=== PATIENT | female | born 1945 | race Caucasian/White ===

== ENCOUNTER 2017-02-15 12:51 | Inpatient (IN) | payer OTHER ==
[2017-02-15 14:07] LABS: Hematocrit 34 % (35-47); Hemoglobin 10.9 g/dl (12.0-16.0); Mean Corpuscular HGB Conc 32 g/dl (31-36); Mean Corpuscular Hemoglobin 29 pg (27-31); Mean Corpuscular Volume 91 fL (80-97); Mean Platelet Volume 7 um3 (7.4-10.4); Red Blood Count 3.74 10^6/ul (4.0-5.4); Red Cell Distribution Width 15 % (10.5-15); White Blood Count 8.1 10^3/ul (3.5-10.8)
[2017-02-15 14:22] LABS: Troponin I 0.01 ng/mL (<0.04)
[2017-02-15 14:26] LABS: Albumin 3.2 g/dL (3.2-5.2); BUN/Creatinine Ratio 20.4 (8-20); Calcium 9.3 mg/dL (8.6-10.3); EGFR African American 23.2 (>60); Globulin 3.4 g/dL (2-4); Magnesium 1.9 mg/dL (1.9-2.7); Potassium 5.5 mmol/L (3.5-5.0); Total Bilirubin 0.4 mg/dL (0.2-1.0); Total Protein 6.6 g/dL (6.4-8.9)
[2017-02-15 15:31] LABS: TSH (Thyroid Stimulating Horm) 2.39 mcIU/mL (0.34-5.60)
[2017-02-15] MEDS ORDERED: Ibuprofen TAB* 200 MG PO PRN (16:10)
[2017-02-15] MEDS ORDERED: Dextrose 50% Syringe 50 ML* 25 GM/50 ML SYRINGE IV PUSH PRN (16:13)
[2017-02-15] MEDS ORDERED: Enoxaparin(*) 150 MG/ML 1 ML SYRINGE SUBCUT SCH (17:00)
[2017-02-15] MEDS ORDERED: NS 0.9% 1000 ML* 1,000 ML IV SCH (17:15)
[2017-02-15] MEDS: Sucralfate TAB* 1 GM PO SCH ×2 (18:36→22:11)
[2017-02-15] MEDS: Atorvastatin* 10 MG TAB PO SCH (18:36)
[2017-02-15] MEDS: Insulin LISPRO* 1 UNITS UNIT SUBCUT SCH (19:23)
[2017-02-15] MEDS: Ferrous Sulfate TAB* 325 MG PO SCH (22:11)
[2017-02-15] MEDS: Lactobacillus Acidophilu (GG)* 1 CAP CAP PO SCH (22:12)
[2017-02-15] MEDS: Gabapentin CAP(*) 100 MG PO SCH (22:13)
[2017-02-15] MEDS: Zinc Oxide 40% (TOPICAL)* TUBE TOPICAL SCH (23:04)
--- NOTE | 2017-02-16 02:30 | HP ---
CC: Dr. Joss Salgado * HISTORY AND PHYSICAL: DATE OF ADMISSION: 02/15/17 AGE: 71. PRIMARY CARE PROVIDER: Dr. Joss Salgado. ATTENDING PHYSICIAN: Dr. Donna Bullock *(dictated by Adela Frazier NP). CHIEF COMPLAINT: Weakness and diarrhea. HISTORY OF PRESENT ILLNESS: Ms. Jean is a 71-year-old female with past medical history significant for atrial flutter, diabetes mellitus, hypertension , and chronic diarrhea who initially had a fall back on February 04 and was hospitalized at [facility] for community-acquired pneumonia and acute on chronic kidney injury in addition to a knee effusion. The patient was hospitalized until February 08, at which time she was discharged to short-term rehabilitation. During the patient's stay on February 06, her creatinine was 1.6 and her BUN was 35. Repeat labs on February 08 showed a creatinine of 2.3 and a BUN of 24. The patient also had a C. diff testing showing that her stool was negative. She was also treated for toxic metabolic encephalopathy. The patient had repeat labs drawn yesterday on February 14 showing a creatinine of 2.4 and a BUN of 52. According to the nursing staff at [facility], the patient was sent to the emergency room and received a liter of normal saline as it was felt that she was dehydrated. The patient was felt to be ready for discharge today and was discharged home to her . The patient has been having chronic diarrhea, 2 to 3 loose stools every morning after breakfast for the last 2 to 3 months according to her . The patient 's was unable to get her out of the car when they got home and the patient's brought her here to [facility] for further evaluation. While in the emergency room, the patient had labs that were significant for a sodium of 131, potassium 5.9, BUN 53, and creatinine 2.60. According to the nursing staff at [facility], the patient had all her antidiabetic medications stopped as her glucoses were running low. The patient denies any fever, chills, chest pain, or shortness of breath. She does report diarrhea and generalized weakness. The patient denies any urinary symptoms. Hospitalists were asked to evaluate the patient for admission. PAST MEDICAL HISTORY: 1. Diabetes mellitus. 2. Atrial flutter. 3. Recurrent urinary tract infections. 4. Hypertension. 5. Chronic diarrhea. PAST SURGICAL HISTORY: 1. Status post pacemaker insertion. 2. Status post right total knee replacement. HOME MEDICATIONS: Include: 1. Desitin apply to redness on buttocks every 8 hours and as needed. 2. MiraLAX 17 g oral daily. 3. Imodium 2 mg oral after each loose stool as needed. 4. Acidophilus 1 tablet oral twice daily for 10 days. 5. Simvastatin 20 mg oral daily at bedtime. 6. Hydrochlorothiazide 12.5 mg oral daily. 7. Metoprolol succinate 100 mg oral daily. 8. Xarelto 15 mg oral daily. 9. Ferrous sulfate 325 mg oral 3 times daily. 10. Carafate 1 g oral 4 times daily. 11. Protonix 40 mg oral daily. 12. Gabapentin 200 mg oral daily at bedtime. ALLERGIES: PROPOXYPHENE. FAMILY HISTORY: The patient denies any family history of coronary artery disease or cancer. The patient's mother had a history of diabetes mellitus. SOCIAL HISTORY: The patient is a former smoker. She reports quitting smoking many years ago and reports only smoking for a few years prior to that. The patient denies alcohol or recreational drug use. The patient is and lives with her . Her , Hasmukh Jean, will be her surrogate decision maker in the event she is unable to make decisions for herself. REVIEW OF SYSTEMS: I performed a 14-point review of systems. All the pertinent positives and negatives are mentioned in the history of present illness. The remaining review of systems are negative. PHYSICAL EXAMINATION GENERAL APPEARANCE: The patient is alert, pleasant, appears to be in no acute distress. VITAL SIGNS: Temperature 96.6, heart rate 75, respiratory rate 20, O2 sat 100% on room air, blood pressure 117/65. HEENT: Normocephalic, atraumatic. Pupils are equal and reactive to light. Extraocular movements are intact. RESPIRATORY: There is no accessory muscle use and the lungs are clear to auscultation bilaterally. CARDIOVASCULAR: Regular rate and rhythm. S1 and S2 present. There are no murmurs, rubs, or gallops heard. ABDOMEN: Soft, nontender, nondistended. There are bowel sounds present x4. EXTREMITIES: There is 1+ to 2+ bilateral lower extremity edema. DP and PT pulses are 2+ and symmetric. MUSCULOSKELETAL: There is no clubbing or cyanosis noted. The patient exhibits good strength in all extremities. NEUROLOGICAL: The patient is alert and oriented x4. Cranial nerves II through XII are grossly intact. PSYCHOLOGICAL: The patient is calm and cooperative. SKIN: The patient has some areas of ecchymosis on her lower extremities and some redness to her buttocks. DIAGNOSTIC STUDIES/LABORATORY DATA: Sodium 131, potassium 5.5, chloride 101, CO2 23, BUN 53, creatinine 2.60, glucose 157. White blood cell count 8.1, hemoglobin 10.9, hematocrit 34, and platelet count 252. EKG shows a sinus rhythm with a rate of 75 and a left bundle branch block, and there are no previous EKGs for comparison. IMPRESSION: Ms. Jean is a 71-year-old female with past medical history significant for diabetes mellitus, atrial fibrillation, recurrent urinary tract infections, hypertension, and chronic diarrhea who presented to the emergency room with complaints of weakness after being discharged from [facility] today. She will be admitted as an observation for acute renal failure and deconditioning. ASSESSMENT/PLAN: 1. Acute renal failure: I suspect this is acute on chronic. The earliest I have labs for was February 06, at which time her creatinine was 1.6 and her BUN was 35. The patient has been having chronic diarrhea and was recently on lisinopril and hydrochlorothiazide. She was discharged after stopping the lisinopril and had received a liter of IV fluids in the emergency room at [facility] yesterday. We will give the patient an additional liter of IV fluids and recheck her labs in the morning. We will check a bladder scan to make sure that she is not retaining urine. We will collect urine samples to check a FENa score. 2. Weakness: I suspect this is related to generalized deconditioning. We will get occupational therapy and physical therapy evaluations. The patient may need to have long-term skilled nursing placement if her is unable to care for her. 3. Atrial flutter: The patient will be continued on her home metoprolol succinate. The patient was on Xarelto, but due to her GFR of 18, it is not recommended that she be continued on Xarelto. For now, the patient will be switched to Lovenox 140 mg daily, which is renally dosed. Once the patient's GFR is greater than 30, she could be restarted back on Xarelto. If her GFR does not improve over the next few days, we could consider placing the patient on renally dosed Eliquis. 4. Diabetes mellitus: According to [facility], the patient's glucoses have been running low and she was taken off of her antidiabetic medications. For now, we will check fingersticks a.c. and h.s. and place the patient on a lispro sliding scale and a consistent carbohydrate diet. 5. Chronic diarrhea: This appears to be ongoing for the last several months. For now, we will continue the patient on MiraLAX daily and Imodium in addition to Acidophilus and Imodium as needed after each loose stool. 6. Hypertension: The patient is not currently hypertensive. We are going to hold the patient's hydrochlorothiazide in light of her renal failure and consider a different antihypertensive if she needs that. 7. Fluids, electrolytes, and nutrition: The patient will be on a consistent carbohydrate diet. 8. Code status: Full code. 9. DVT prophylaxis: The patient is at highest risk and will be on Lovenox. 10. Disposition: Observation. TIME SPENT: The time spent for this admission was 60 minutes and greater than half of that was spent with the patient and the discussing medications, past medical history, and the events leading up to her arrival today and performing a physical examination. The case has been reviewed with the attending, Dr. Bullock, who agrees with the plan of care. Reviewed by JALEN HURD 02/16/17 [id number]/[facility] #: [id number] FREYA
[2017-02-16 07:22] LABS: BUN/Creatinine Ratio 22.4 (8-20); Blood Urea Nitrogen 55 mg/dL (6-24); CO2 Carbon Dioxide 22 mmol/L (22-32); Calcium 8.8 mg/dL (8.6-10.3); Chloride 108 mmol/L (101-111); EGFR African American 24.7 (>60); EGFR Non-African American 19.2 (>60); Glucose 55 mg/dL (70-100); Sodium 130 mmol/L (133-145)
[2017-02-16] MEDS: Insulin LISPRO* 1 UNITS UNIT SUBCUT SCH (08:37)
[2017-02-16] MEDS ORDERED: Rivaroxaban TAB(*) 15 MG PO SCH (09:00)
--- NOTE | 2017-02-16 09:10 | PN ---
Subjective Date of Service: 02/16/17 Interval History: C/O low back pain since her admission to [facility]. She is a vague historian. The pain is preventing her from walking. Objective Active Medications: Acetaminophen (Tylenol Tab*) 650 mg PO Q4H PRN PRN Reason: PAIN/INFLAMMATION Acetaminophen (Tylenol Tab*) 650 mg PO QID [facility] Atorvastatin Calcium (Lipitor*) 10 mg PO QPM [facility] Last Admin: 02/15/17 18:36 Dose: 10 mg Dextrose (D50w Syringe 50 Ml*) 12.5 gm IV PUSH .FOR FS < 60 - SS PRN PRN Reason: FS < 60 Enoxaparin Sodium (Lovenox(*)) 140 mg SUBCUT Q24H [facility] Ferrous Sulfate (Ferrous Sulfate Tab*) 325 mg PO TID [facility] Last Admin: 02/15/17 22:11 Dose: 325 mg Gabapentin (Neurontin Cap(*)) 200 mg PO BEDTIME [facility] Last Admin: 02/15/17 22:13 Dose: 200 mg Ibuprofen (Advil Tab*) 200 mg PO Q6H PRN PRN Reason: PAIN Last Admin: 02/15/17 22:12 Dose: 200 mg Lactobacillus Rhamnosus (Culturelle*) 1 cap PO BID [facility] Last Admin: 02/15/17 22:12 Dose: 1 cap Loperamide HCl (Imodium Cap*) 2 mg PO DAILY PRN PRN Reason: LOOSE STOOLS Metoprolol Succinate (Toprol Xl Tab*) 100 mg PO DAILY [facility] Omeprazole (Prilosec Cap*) 20 mg PO DAILY [facility] Polyethylene Glycol/Electrolytes (Miralax*) 17 gm PO DAILY [facility] Sucralfate (Carafate*) 1 gm PO ACHS [facility] Last Admin: 02/15/17 22:11 Dose: 1 gm Zinc Oxide (Zinc Oxide 40% (Topical)*) 1 applic TOPICAL TID [facility] Last Admin: 02/15/17 23:04 Dose: Not Given Vital Signs 02/15/17 02/15/17 02/15/17 15:00 15:30 16:08 Temperature Pulse Rate 75 Respiratory 20 Rate Blood Pressure 117/65 115/66 (mmHg) O2 Sat by Pulse 100 Oximetry 02/15/17 02/15/17 02/15/17 17:14 18:26 20:00 Temperature 97.5 F 97.5 F Pulse Rate 74 74 Respiratory 20 20 16 Rate Blood Pressure 133/75 133/75 (mmHg) O2 Sat by Pulse 95 Oximetry 02/15/17 02/15/17 02/15/17 20:05 22:13 23:21 Temperature 97.4 F 97.6 F Pulse Rate 75 76 Respiratory 16 16 16 Rate Blood Pressure 122/63 104/45 (mmHg) O2 Sat by Pulse 100 100 Oximetry 02/16/17 02/16/17 02/16/17 00:13 04:32 07:48 Temperature 97.4 F 97.4 F Pulse Rate 75 83 Respiratory 16 16 16 Rate Blood Pressure 126/59 132/48 (mmHg) O2 Sat by Pulse 100 Oximetry 02/16/17 08:15 Temperature Pulse Rate Respiratory Rate Blood Pressure (mmHg) O2 Sat by Pulse 100 Oximetry Oxygen Devices in Use Now: None Appearance: Alert, in a chair. Neutral affect. Looks comfortable. Eyes: No Scleral Icterus Neck: NL Appearance and Movements; NL JVP, No Thyroid Enlargement, Masses Respiratory: Symmetrical Chest Expansion and Respiratory Effort, Clear to Auscultation, Clear to Percussion Extremities: No Clubbing, Cyanosis, - - Tr edema BL Skin: No Rash or Ulcers, No Nodules or Sclerosis Neurological: NL Sensation - She knew the day of the week but not the month, said the present year was "77". Result Diagrams: 02/15/17 13:53 02/16/17 06:36 Microbiology and Other Data: Microbiology 02/15/17 18:30 Nasal Screen MRSA (PCR)(MARNIE) - Final Nasal Mrsa Negative Assess/Plan/Problems-Billing Assessment: - Patient Problems (1) Back pain Current Visit: Yes Status: Acute Code(s): M54.9 - DORSALGIA, UNSPECIFIED SNOMED Code(s): 014923547 Comment: Scheduled APAP. (2) Difficulty walking Current Visit: Yes Status: Acute Code(s): R26.2 - DIFFICULTY IN WALKING, NOT ELSEWHERE CLASSIFIED SNOMED Code(s): 799985137 Comment: She gives back pain as the reason. I think she also lacks motivation to walk. (3) Diabetes Current Visit: Yes Status: Acute Code(s): E11.9 - TYPE 2 DIABETES MELLITUS WITHOUT COMPLICATIONS SNOMED Code(s): 10567203 Comment: Off all hypoglycemics more than one day. FS BID with parameters. (4) Chronic diarrhea Current Visit: Yes Status: Acute Code(s): K52.9 - NONINFECTIVE GASTROENTERITIS AND COLITIS, UNSPECIFIED SNOMED Code(s): 668379830 Comment: Pt reports her normal is 2-3 BM per day. Low lactose diet ordered. (5) Morbid obesity Current Visit: Yes Status: Acute Code(s): E66.01 - MORBID (SEVERE) OBESITY DUE TO EXCESS CALORIES SNOMED Code(s): 295123077 Comment: BMI 47.1. (6) Dementia Current Visit: Yes Status: Acute Code(s): F03.90 - UNSPECIFIED DEMENTIA WITHOUT BEHAVIORAL DISTURBANCE SNOMED Code(s): 61782741 Comment: I will try to get a history for this from the family. (7) Atrial flutter Current Visit: Yes Status: Acute Code(s): I48.92 - UNSPECIFIED ATRIAL FLUTTER SNOMED Code(s): 9959686 Comment: Continue enoxaparin, metoprolol. (8) CKD (chronic kidney disease) Current Visit: Yes Status: Acute Code(s): N18.9 - CHRONIC KIDNEY DISEASE, UNSPECIFIED SNOMED Code(s): 218546538 Comment: Slight improvement first hospital night. Repeat BMP 02/18.
[2017-02-16] MEDS: Sucralfate TAB* 1 GM PO SCH ×4 (10:49→21:59)
[2017-02-16] MEDS: Enoxaparin(*) 150 MG/ML 1 ML SYRINGE SUBCUT SCH (11:14)
[2017-02-16] MEDS: Acetaminophen TAB* 325 MG PO SCH ×4 (11:15→21:59)
[2017-02-16] MEDS: Zinc Oxide 40% (TOPICAL)* TUBE TOPICAL SCH ×3 (11:15→22:00)
[2017-02-16] MEDS: Metoprolol Succinate XL TAB* 100 MG PO SCH (11:16)
[2017-02-16] MEDS: Omeprazole CAP* 20 MG PO SCH (11:16)
[2017-02-16] MEDS: Ferrous Sulfate TAB* 325 MG PO SCH ×3 (11:16→22:00)
[2017-02-16] MEDS: Lactobacillus Acidophilu (GG)* 1 CAP CAP PO SCH ×2 (11:16→22:00)
[2017-02-16] MEDS: Polyethylene Glycol 3350* 17 GM PACKET PO SCH (11:44)
[2017-02-16 16:30] LABS: Urine Bacteria 1+ (Absent); Urine Bilirubin Negative (Negative); Urine Glucose Negative (Negative); Urine Nitrite Negative (Negative)
--- NOTE | 2017-02-16 18:18 | ED ---
Jamie Cruz Auryana, scribed for Schuyler eNw MD on 02/15/17 at 1407 . Complex/Multi-Sys Presentation - HPI Summary HPI Summary: 71 year old female presents with increased hip pain and fatigue starting today. The pain is worse with ambulation. [facility] - rehab for 1 week and 1 week in the hospital prior to rehab admission. Prior to discharge from rehab, patient was ambulating normally. also reports that she has had diarrhea recently. - History Of Current Complaint Chief Complaint: EDWeakness Time Seen by Provider: 02/15/17 13:15 Hx Obtained From: Patient Onset/Duration: Gradual Onset Timing: Constant Severity Currently: Mild Severity Initially: Mild Location: Pain At: - bilatersl hips Aggravating Factor(s): walking Associated Signs And Symptoms: Positive: Diarrhea Related History: Other - recent discharge from rehab - Allergies/Home Medications Allergies/Adverse Reactions: Allergies Allergy/AdvReac Type Severity Reaction Status Date / Time No Known Allergies Allergy Verified 02/15/17 15:39 Home Medications: Home Medications Acetaminophen TAB* [Tylenol TAB*] 325 mg PO Q6H PRN 02/15/17 [History Confirmed 02/15/17] Ferrous Sulfate TAB* 325 mg PO TID 02/15/17 [History Confirmed 02/15/17] Gabapentin CAP(*) [Neurontin 100 mg CAP(*)] 200 mg PO BEDTIME 02/15/17 [History Confirmed 02/15/17] Hydrochlorothiazide TAB* [Hydrodiuril TAB*] 12.5 mg PO DAILY 02/15/17 [History Confirmed 02/15/17] Ibuprofen TAB* [Advil TAB*] 200 mg PO Q6H PRN 02/15/17 [History Confirmed ] Loperamide CAP* [Imodium CAP*] 2 mg PO DAILY PRN 02/15/17 [History Confirmed ] Metoprolol Succinate XL TAB* [Toprol XL TAB*] 100 mg PO DAILY 02/15/17 [History Confirmed 02/15/17] Pantoprazole TAB (NF) [Protonix TAB (NF)] 40 mg PO DAILY 02/15/17 [History Confirmed 02/15/17] Polyethylene Glycol 3350* [Miralax*] 17 gm PO DAILY 02/15/17 [History Confirmed 02/15/17] Probiotic Product [Acidophilus] 1 cap PO BID 02/15/17 [History Confirmed ] Rivaroxaban TAB(*) [Xarelto 15 mg(*)] 15 mg PO DAILY 02/15/17 [History Confirmed 02/15/17] Simvastatin TAB(NF) [Zocor(NF)] 20 mg PO BEDTIME 02/15/17 [History Confirmed ] Sucralfate TAB* [Carafate*] 1 gm PO QID 02/15/17 [History Confirmed 02/15/17] PMH/Surg Hx/FS Hx/Imm Hx Cardiovascular History: Reports: Hx Hypertension Musculoskeletal History: Reports: Hx Joint Replacement - R KNEE Infectious Disease History: Denies: Traveled Outside the [place] in Last 30 Days - Family History Known Family History: Positive: Diabetes, Other - TIA/CVA - Social History Occupation: Retired Lives: With Family Alcohol Use: None Hx Substance Use: No Substance Use Type: Reports: None Hx Tobacco Use: No Smoking Status (MU): Never Smoked Tobacco Review of Systems Constitutional: Negative Negative: Fever Eyes: Negative ENT: Negative Cardiovascular: Negative Respiratory: Negative Positive: Diarrhea Genitourinary: Negative Positive: no symptoms reported Positive: Arthralgia - hip pain Skin: Negative Neurological: Negative Psychological: Normal All Other Systems Reviewed And Are Negative: Yes Physical Exam Triage Information Reviewed: Yes Vital Signs On Initial Exam: Initial Vitals Temp Pulse Resp BP Pulse Ox 98.4 F 74 17 97/51 99 02/15/17 12:56 02/15/17 12:56 02/15/17 12:56 02/15/17 12:56 02/15/17 12:56 Vital Signs Reviewed: Yes Appearance: Positive: Well-Appearing, No Pain Distress, Obese - morbidly Skin: Positive: Warm, Skin Color Reflects Adequate Perfusion, Dry Head/Face: Positive: Normal Head/Face Inspection Eyes: Positive: Normal ENT: Positive: Normal ENT inspection Neck: Positive: Supple, Nontender Respiratory/Lung Sounds: Positive: Clear to Auscultation, Breath Sounds Present Cardiovascular: Positive: RRR, Pulses are Symmetrical in both Upper and Lower Extremities Abdomen Description: Positive: Nontender, Soft, Other: - no tenderness with pelvic compressions Bowel Sounds: Positive: Present Musculoskeletal: Positive: Normal, Strength/ROM Intact, Other - (-) straight leg raise Neurological: Positive: Normal, Sensory/Motor Intact Psychiatric: Positive: Normal, Affect/Mood Appropriate Diagnostics - Vital Signs Vital Signs Temp Pulse Resp BP Pulse Ox 02/15/17 12:56 98.4 F 74 17 97/51 99 - Laboratory Lab Results: Lab Results 02/15/17 02/15/17 02/15/17 Range/Units 13:53 13:53 13:53 WBC 8.1 (3.5-10.8) 10^3/ul RBC 3.74 L (4.0-5.4) 10^6/ul Hgb 10.9 L (12.0-16.0) g/dl Hct 34 L (35-47) % MCV 91 (80-97) fL MCH 29 (27-31) pg MCHC 32 (31-36) g/dl RDW 15 (10.5-15) % Plt Count 252 (150-450) 10^3/ul MPV 7 L (7.4-10.4) um3 Neut % (Auto) 83.7 H (38-83) % Lymph % (Auto) 5.9 L (25-47) % Jewell % (Auto) 8.5 (1-9) % Eos % (Auto) 1.1 (0-6) % Baso % (Auto) 0.8 (0-2) % Absolute Neuts (auto) 6.8 (1.5-7.7) 10^3/ul Absolute Lymphs (auto) 0.5 L (1.0-4.8) 10^3/ul Absolute Monos (auto) 0.7 (0-0.8) 10^3/ul Absolute Eos (auto) 0.1 (0-0.6) 10^3/ul Absolute Basos (auto) 0.1 (0-0.2) 10^3/ul Absolute Nucleated RBC 0 10^3/ul Nucleated RBC % 0 Sodium 131 L (133-145) mmol/L Potassium 5.5 H (3.5-5.0) mmol/L Chloride 101 (101-111) mmol/L Carbon Dioxide 23 (22-32) mmol/L Anion Gap 7 (2-11) mmol/L BUN 53 H (6-24) mg/dL Creatinine 2.60 H (0.51-0.95) mg/dL Est GFR ( Amer) 23.2 (>60) Est GFR (Non-Af Amer) 18.0 (>60) BUN/Creatinine Ratio 20.4 H (8-20) Glucose 157 H (70-100) mg/dL POC Glucose (mg/dL) (74-106) mg/dL Lactic Acid 1.1 (0.5-2.0) mmol/L Calcium 9.3 (8.6-10.3) mg/dL Magnesium 1.9 (1.9-2.7) mg/dL Total Bilirubin 0.40 (0.2-1.0) mg/dL AST 15 (13-39) U/L ALT 10 (7-52) U/L Alkaline Phosphatase 85 (34-104) U/L Troponin I 0.01 (<0.04) ng/mL Total Protein 6.6 (6.4-8.9) g/dL Albumin 3.2 (3.2-5.2) g/dL Globulin 3.4 (2-4) g/dL Albumin/Globulin Ratio 0.9 L (1-3) TSH 2.39 (0.34-5.60) mcIU/mL Urine Color Urine Appearance Urine pH (5-9) Ur Specific [place] (1.010-1.030) Urine Protein (Negative) Urine Ketones (Negative) Urine Blood (Negative) Urine Nitrate (Negative) Urine Bilirubin (Negative) Urine Urobilinogen (Negative) Ur Leukocyte Esterase (Negative) Urine WBC (Auto) (Absent) Urine RBC (Auto) (Absent) Ur Squamous Epith Cells (Absent) Ur Transition Epith Cell (Absent) Urine Bacteria (Absent) Hyaline Casts (Absent) Urine Glucose (Negative) 02/15/17 02/15/17 02/15/17 Range/Units 15:35 17:48 22:18 WBC (3.5-10.8) 10^3/ul RBC (4.0-5.4) 10^6/ul Hgb (12.0-16.0) g/dl Hct (35-47) % MCV (80-97) fL MCH (27-31) pg MCHC (31-36) g/dl RDW (10.5-15) % Plt Count (150-450) 10^3/ul MPV (7.4-10.4) um3 Neut % (Auto) (38-83) % Lymph % (Auto) (25-47) % Jewell % (Auto) (1-9) % Eos % (Auto) (0-6) % Baso % (Auto) (0-2) % Absolute Neuts (auto) (1.5-7.7) 10^3/ul Absolute Lymphs (auto) (1.0-4.8) 10^3/ul Absolute Monos (auto) (0-0.8) 10^3/ul Absolute Eos (auto) (0-0.6) 10^3/ul Absolute Basos (auto) (0-0.2) 10^3/ul Absolute Nucleated RBC 10^3/ul Nucleated RBC % Sodium (133-145) mmol/L Potassium (3.5-5.0) mmol/L Chloride (101-111) mmol/L Carbon Dioxide (22-32) mmol/L Anion Gap (2-11) mmol/L BUN (6-24) mg/dL Creatinine (0.51-0.95) mg/dL Est GFR ( Amer) (>60) Est GFR (Non-Af Amer) (>60) BUN/Creatinine Ratio (8-20) Glucose (70-100) mg/dL POC Glucose (mg/dL) 93 90 (74-106) mg/dL Lactic Acid (0.5-2.0) mmol/L Calcium (8.6-10.3) mg/dL Magnesium (1.9-2.7) mg/dL Total Bilirubin (0.2-1.0) mg/dL AST (13-39) U/L ALT (7-52) U/L Alkaline Phosphatase (34-104) U/L Troponin I (<0.04) ng/mL Total Protein (6.4-8.9) g/dL Albumin (3.2-5.2) g/dL Globulin (2-4) g/dL Albumin/Globulin Ratio (1-3) TSH (0.34-5.60) mcIU/mL Urine Color Yellow Urine Appearance Cloudy Urine pH 5.0 (5-9) Ur Specific [place] 1.006 L (1.010-1.030) Urine Protein Negative (Negative) Urine Ketones Negative (Negative) Urine Blood 2+ H (Negative) Urine Nitrate Negative (Negative) Urine Bilirubin Negative (Negative) Urine Urobilinogen Negative (Negative) Ur Leukocyte Esterase 3+ H (Negative) Urine WBC (Auto) 2+(11-20/hpf) H (Absent) Urine RBC (Auto) 2+(6-10/hpf) H (Absent) Ur Squamous Epith Cells Present H (Absent) Ur Transition Epith Cell Present H (Absent) Urine Bacteria 1+ H (Absent) Hyaline Casts Present H (Absent) Urine Glucose Negative (Negative) 02/16/17 02/16/17 02/16/17 Range/Units 06:36 07:52 07:57 WBC (3.5-10.8) 10^3/ul RBC (4.0-5.4) 10^6/ul Hgb (12.0-16.0) g/dl Hct (35-47) % MCV (80-97) fL MCH (27-31) pg MCHC (31-36) g/dl RDW (10.5-15) % Plt Count (150-450) 10^3/ul MPV (7.4-10.4) um3 Neut % (Auto) (38-83) % Lymph % (Auto) (25-47) % Jewell % (Auto) (1-9) % Eos % (Auto) (0-6) % Baso % (Auto) (0-2) % Absolute Neuts (auto) (1.5-7.7) 10^3/ul Absolute Lymphs (auto) (1.0-4.8) 10^3/ul Absolute Monos (auto) (0-0.8) 10^3/ul Absolute Eos (auto) (0-0.6) 10^3/ul Absolute Basos (auto) (0-0.2) 10^3/ul Absolute Nucleated RBC 10^3/ul Nucleated RBC % Sodium 130 L (133-145) mmol/L Potassium 5.0 (3.5-5.0) mmol/L Chloride 108 (101-111) mmol/L Carbon Dioxide 22 (22-32) mmol/L Anion Gap (2-11) mmol/L BUN 55 H (6-24) mg/dL Creatinine 2.46 H (0.51-0.95) mg/dL Est GFR ( Amer) 24.7 (>60) Est GFR (Non-Af Amer) 19.2 (>60) BUN/Creatinine Ratio 22.4 H (8-20) Glucose 55 L (70-100) mg/dL POC Glucose (mg/dL) 43 L 63 L (74-106) mg/dL Lactic Acid (0.5-2.0) mmol/L Calcium 8.8 (8.6-10.3) mg/dL Magnesium (1.9-2.7) mg/dL Total Bilirubin (0.2-1.0) mg/dL AST (13-39) U/L ALT (7-52) U/L Alkaline Phosphatase (34-104) U/L Troponin I (<0.04) ng/mL Total Protein (6.4-8.9) g/dL Albumin (3.2-5.2) g/dL Globulin (2-4) g/dL Albumin/Globulin Ratio (1-3) TSH (0.34-5.60) mcIU/mL Urine Color Urine Appearance Urine pH (5-9) Ur Specific [place] (1.010-1.030) Urine Protein (Negative) Urine Ketones (Negative) Urine Blood (Negative) Urine Nitrate (Negative) Urine Bilirubin (Negative) Urine Urobilinogen (Negative) Ur Leukocyte Esterase (Negative) Urine WBC (Auto) (Absent) Urine RBC (Auto) (Absent) Ur Squamous Epith Cells (Absent) Ur Transition Epith Cell (Absent) Urine Bacteria (Absent) Hyaline Casts (Absent) Urine Glucose (Negative) Result Diagrams: 02/15/17 13:53 02/16/17 06:36 Lab Statement: Any lab studies that have been ordered have been reviewed, and results considered in the medical decision making process. - EKG 13:34 EKG Interpretation: sinus rhythm with 1st degree block - LBBB Complex Multi-Symp Course/Dx Assessment/Plan: Ms. Jean is weak and unable to ambulate. Labs were sent and it is unclear what her baseline is. I asked the hospitalists to evaluate her. - Diagnoses Provider Diagnoses: Weakness, Renal insufficiency - Physician Notifications Discussed Care Of Patient With: Donna Burden - hospitalist Time Discussed With Above Provider: 14:58 - agrees to admit Discharge - Discharge Plan Condition: Stable Disposition: ADMITTED TO [facility] documentation as recorded by the Jamie valadez Auryana accurately reflects the service I personally performed and the decisions made by me, Schuyler New MD.
[2017-02-16] MEDS: Atorvastatin* 10 MG TAB PO SCH (18:28)
[2017-02-16] MEDS: Gabapentin CAP(*) 100 MG PO SCH (21:59)
[2017-02-17] MEDS: Acetaminophen TAB* 325 MG PO PRN (02:49)
--- NOTE | 2017-02-17 09:33 | PN ---
Subjective Date of Service: 02/17/17 Interval History: C/O BL hip pain, low back pain No new c/o. Objective Active Medications: Acetaminophen (Tylenol Tab*) 650 mg PO Q4H PRN PRN Reason: PAIN/INFLAMMATION Last Admin: 02/17/17 02:49 Dose: 650 mg Acetaminophen (Tylenol Tab*) 650 mg PO QID [facility] Last Admin: 02/16/17 21:59 Dose: 650 mg Atorvastatin Calcium (Lipitor*) 10 mg PO QPM [facility] Last Admin: 02/16/17 18:28 Dose: 10 mg Dextrose (D50w Syringe 50 Ml*) 12.5 gm IV PUSH .FOR FS < 60 - SS PRN PRN Reason: FS < 60 Enoxaparin Sodium (Lovenox(*)) 140 mg SUBCUT Q24H [facility] Last Admin: 02/16/17 11:14 Dose: 140 mg Gabapentin (Neurontin Cap(*)) 100 mg PO BEDTIME [facility] Ibuprofen (Advil Tab*) 200 mg PO Q6H PRN PRN Reason: PAIN Last Admin: 02/15/17 22:12 Dose: 200 mg Lactobacillus Rhamnosus (Culturelle*) 1 cap PO BID [facility] Last Admin: 02/16/17 22:00 Dose: 1 cap Loperamide HCl (Imodium Cap*) 2 mg PO DAILY PRN PRN Reason: LOOSE STOOLS Metoprolol Succinate (Toprol Xl Tab*) 100 mg PO DAILY [facility] Last Admin: 02/16/17 11:16 Dose: 100 mg Omeprazole (Prilosec Cap*) 20 mg PO DAILY [facility] Last Admin: 02/16/17 11:16 Dose: 20 mg Polyethylene Glycol/Electrolytes (Miralax*) 17 gm PO DAILY [facility] Last Admin: 02/16/17 11:44 Dose: Not Given Sucralfate (Carafate*) 1 gm PO ACHS [facility] Last Admin: 02/16/17 21:59 Dose: 1 gm Zinc Oxide (Zinc Oxide 40% (Topical)*) 1 applic TOPICAL TID [facility] Last Admin: 02/16/17 22:00 Dose: 1 applic Vital Signs 02/16/17 02/16/17 02/16/17 11:50 15:37 19:44 Temperature 97.2 F 97.4 F Pulse Rate 200 77 Respiratory 16 24 18 Rate Blood Pressure 102/66 93/52 (mmHg) O2 Sat by Pulse 92 98 Oximetry 02/16/17 02/16/17 02/16/17 20:02 21:59 22:02 Temperature 97.6 F Pulse Rate 77 Respiratory 22 18 Rate Blood Pressure 140/55 (mmHg) O2 Sat by Pulse 94 94 Oximetry 02/16/17 02/17/17 02/17/17 23:59 00:00 00:02 Temperature Pulse Rate 71 Respiratory 16 15 Rate Blood Pressure 148/63 (mmHg) O2 Sat by Pulse 94 99 Oximetry 02/17/17 02/17/17 02/17/17 04:21 08:01 08:30 Temperature 96.0 F 97.5 F Pulse Rate 73 102 Respiratory 16 16 Rate Blood Pressure 120/41 130/59 (mmHg) O2 Sat by Pulse 100 99 99 Oximetry Oxygen Devices in Use Now: None Appearance: Supine in bed. Neutral affect. Looks comfortable. Eyes: No Scleral Icterus Neck: NL Appearance and Movements; NL JVP, No Thyroid Enlargement, Masses Respiratory: Symmetrical Chest Expansion and Respiratory Effort, Clear to Auscultation, Clear to Percussion Cardiovascular: NL Sounds; No Murmurs; No JVD, RRR, No Edema, - Extremities: No Edema, No Clubbing, Cyanosis, - Skin: No Rash or Ulcers Neurological: NL Sensation - Passive. Fair verbal skills. Poor memory. Does joke some. No tremor. Result Diagrams: 02/15/17 13:53 02/16/17 06:36 Additional Lab and Data: Lab Results 02/15/17 02/15/17 02/15/17 Range/Units 13:53 13:53 13:53 WBC 8.1 (3.5-10.8) 10^3/ul RBC 3.74 L (4.0-5.4) 10^6/ul Hgb 10.9 L (12.0-16.0) g/dl Hct 34 L (35-47) % MCV 91 (80-97) fL MCH 29 (27-31) pg MCHC 32 (31-36) g/dl RDW 15 (10.5-15) % Plt Count 252 (150-450) 10^3/ul MPV 7 L (7.4-10.4) um3 Neut % (Auto) 83.7 H (38-83) % Lymph % (Auto) 5.9 L (25-47) % Bates % (Auto) 8.5 (1-9) % Eos % (Auto) 1.1 (0-6) % Baso % (Auto) 0.8 (0-2) % Absolute Neuts (auto) 6.8 (1.5-7.7) 10^3/ul Absolute Lymphs (auto) 0.5 L (1.0-4.8) 10^3/ul Absolute Monos (auto) 0.7 (0-0.8) 10^3/ul Absolute Eos (auto) 0.1 (0-0.6) 10^3/ul Absolute Basos (auto) 0.1 (0-0.2) 10^3/ul Absolute Nucleated RBC 0 10^3/ul Nucleated RBC % 0 Sodium 131 L (133-145) mmol/L Potassium 5.5 H (3.5-5.0) mmol/L Chloride 101 (101-111) mmol/L Carbon Dioxide 23 (22-32) mmol/L Anion Gap 7 (2-11) mmol/L BUN 53 H (6-24) mg/dL Creatinine 2.60 H (0.51-0.95) mg/dL Est GFR ( Amer) 23.2 (>60) Est GFR (Non-Af Amer) 18.0 (>60) BUN/Creatinine Ratio 20.4 H (8-20) Glucose 157 H (70-100) mg/dL POC Glucose (mg/dL) (74-106) mg/dL Lactic Acid 1.1 (0.5-2.0) mmol/L Calcium 9.3 (8.6-10.3) mg/dL Magnesium 1.9 (1.9-2.7) mg/dL Total Bilirubin 0.40 (0.2-1.0) mg/dL AST 15 (13-39) U/L ALT 10 (7-52) U/L Alkaline Phosphatase 85 (34-104) U/L Troponin I 0.01 (<0.04) ng/mL Total Protein 6.6 (6.4-8.9) g/dL Albumin 3.2 (3.2-5.2) g/dL Globulin 3.4 (2-4) g/dL Albumin/Globulin Ratio 0.9 L (1-3) TSH 2.39 (0.34-5.60) mcIU/mL Urine Color Urine Appearance Urine pH (5-9) Ur Specific [place] (1.010-1.030) Urine Protein (Negative) Urine Ketones (Negative) Urine Blood (Negative) Urine Nitrate (Negative) Urine Bilirubin (Negative) Urine Urobilinogen (Negative) Ur Leukocyte Esterase (Negative) Urine WBC (Auto) (Absent) Urine RBC (Auto) (Absent) Ur Squamous Epith Cells (Absent) Ur Transition Epith Cell (Absent) Urine Bacteria (Absent) Hyaline Casts (Absent) Urine Glucose (Negative) 02/15/17 02/15/17 02/15/17 Range/Units 15:35 17:48 22:18 WBC (3.5-10.8) 10^3/ul RBC (4.0-5.4) 10^6/ul Hgb (12.0-16.0) g/dl Hct (35-47) % MCV (80-97) fL MCH (27-31) pg MCHC (31-36) g/dl RDW (10.5-15) % Plt Count (150-450) 10^3/ul MPV (7.4-10.4) um3 Neut % (Auto) (38-83) % Lymph % (Auto) (25-47) % Bates % (Auto) (1-9) % Eos % (Auto) (0-6) % Baso % (Auto) (0-2) % Absolute Neuts (auto) (1.5-7.7) 10^3/ul Absolute Lymphs (auto) (1.0-4.8) 10^3/ul Absolute Monos (auto) (0-0.8) 10^3/ul Absolute Eos (auto) (0-0.6) 10^3/ul Absolute Basos (auto) (0-0.2) 10^3/ul Absolute Nucleated RBC 10^3/ul Nucleated RBC % Sodium (133-145) mmol/L Potassium (3.5-5.0) mmol/L Chloride (101-111) mmol/L Carbon Dioxide (22-32) mmol/L Anion Gap (2-11) mmol/L BUN (6-24) mg/dL Creatinine (0.51-0.95) mg/dL Est GFR ( Amer) (>60) Est GFR (Non-Af Amer) (>60) BUN/Creatinine Ratio (8-20) Glucose (70-100) mg/dL POC Glucose (mg/dL) 93 90 (74-106) mg/dL Lactic Acid (0.5-2.0) mmol/L Calcium (8.6-10.3) mg/dL Magnesium (1.9-2.7) mg/dL Total Bilirubin (0.2-1.0) mg/dL AST (13-39) U/L ALT (7-52) U/L Alkaline Phosphatase (34-104) U/L Troponin I (<0.04) ng/mL Total Protein (6.4-8.9) g/dL Albumin (3.2-5.2) g/dL Globulin (2-4) g/dL Albumin/Globulin Ratio (1-3) TSH (0.34-5.60) mcIU/mL Urine Color Yellow Urine Appearance Cloudy Urine pH 5.0 (5-9) Ur Specific [place] 1.006 L (1.010-1.030) Urine Protein Negative (Negative) Urine Ketones Negative (Negative) Urine Blood 2+ H (Negative) Urine Nitrate Negative (Negative) Urine Bilirubin Negative (Negative) Urine Urobilinogen Negative (Negative) Ur Leukocyte Esterase 3+ H (Negative) Urine WBC (Auto) 2+(11-20/hpf) H (Absent) Urine RBC (Auto) 2+(6-10/hpf) H (Absent) Ur Squamous Epith Cells Present H (Absent) Ur Transition Epith Cell Present H (Absent) Urine Bacteria 1+ H (Absent) Hyaline Casts Present H (Absent) Urine Glucose Negative (Negative) 02/16/17 02/16/17 02/16/17 Range/Units 06:36 07:52 07:57 WBC (3.5-10.8) 10^3/ul RBC (4.0-5.4) 10^6/ul Hgb (12.0-16.0) g/dl Hct (35-47) % MCV (80-97) fL MCH (27-31) pg MCHC (31-36) g/dl RDW (10.5-15) % Plt Count (150-450) 10^3/ul MPV (7.4-10.4) um3 Neut % (Auto) (38-83) % Lymph % (Auto) (25-47) % Bates % (Auto) (1-9) % Eos % (Auto) (0-6) % Baso % (Auto) (0-2) % Absolute Neuts (auto) (1.5-7.7) 10^3/ul Absolute Lymphs (auto) (1.0-4.8) 10^3/ul Absolute Monos (auto) (0-0.8) 10^3/ul Absolute Eos (auto) (0-0.6) 10^3/ul Absolute Basos (auto) (0-0.2) 10^3/ul Absolute Nucleated RBC 10^3/ul Nucleated RBC % Sodium 130 L (133-145) mmol/L Potassium 5.0 (3.5-5.0) mmol/L Chloride 108 (101-111) mmol/L Carbon Dioxide 22 (22-32) mmol/L Anion Gap (2-11) mmol/L BUN 55 H (6-24) mg/dL Creatinine 2.46 H (0.51-0.95) mg/dL Est GFR ( Amer) 24.7 (>60) Est GFR (Non-Af Amer) 19.2 (>60) BUN/Creatinine Ratio 22.4 H (8-20) Glucose 55 L (70-100) mg/dL POC Glucose (mg/dL) 43 L 63 L (74-106) mg/dL Lactic Acid (0.5-2.0) mmol/L Calcium 8.8 (8.6-10.3) mg/dL Magnesium (1.9-2.7) mg/dL Total Bilirubin (0.2-1.0) mg/dL AST (13-39) U/L ALT (7-52) U/L Alkaline Phosphatase (34-104) U/L Troponin I (<0.04) ng/mL Total Protein (6.4-8.9) g/dL Albumin (3.2-5.2) g/dL Globulin (2-4) g/dL Albumin/Globulin Ratio (1-3) TSH (0.34-5.60) mcIU/mL Urine Color Urine Appearance Urine pH (5-9) Ur Specific [place] (1.010-1.030) Urine Protein (Negative) Urine Ketones (Negative) Urine Blood (Negative) Urine Nitrate (Negative) Urine Bilirubin (Negative) Urine Urobilinogen (Negative) Ur Leukocyte Esterase (Negative) Urine WBC (Auto) (Absent) Urine RBC (Auto) (Absent) Ur Squamous Epith Cells (Absent) Ur Transition Epith Cell (Absent) Urine Bacteria (Absent) Hyaline Casts (Absent) Urine Glucose (Negative) Microbiology and Other Data: Microbiology 02/15/17 18:30 Nasal Screen MRSA (PCR)(MARNIE) - Final Nasal Mrsa Negative Assess/Plan/Problems-Billing Assessment: - Patient Problems (1) Back pain Current Visit: Yes Status: Acute Code(s): M54.9 - DORSALGIA, UNSPECIFIED SNOMED Code(s): 647983503 Comment: Continue scheduled APAP. Pelvis X-ray ordered. BL hip pain unlikely to be due to fx. (2) Difficulty walking Current Visit: Yes Status: Acute Code(s): R26.2 - DIFFICULTY IN WALKING, NOT ELSEWHERE CLASSIFIED SNOMED Code(s): 607098422 Comment: She gives back pain as the reason. I think she also lacks motivation to walk. Initial PT eval done. Pt will need STR. (3) Diabetes Current Visit: Yes Status: Acute Code(s): E11.9 - TYPE 2 DIABETES MELLITUS WITHOUT COMPLICATIONS SNOMED Code(s): 70424537 Comment: Off all hypoglycemics more than one day. As of 02/17, highest POC glucose was 149. FS daily with parameters. (4) Chronic diarrhea Current Visit: Yes Status: Acute Code(s): K52.9 - NONINFECTIVE GASTROENTERITIS AND COLITIS, UNSPECIFIED SNOMED Code(s): 250584024 Comment: Pt reports her normal is 2-3 BM per day. Low lactose diet ordered. (5) Morbid obesity Current Visit: Yes Status: Acute Code(s): E66.01 - MORBID (SEVERE) OBESITY DUE TO EXCESS CALORIES SNOMED Code(s): 167466617 Comment: BMI 47.1. (6) Dementia Current Visit: Yes Status: Acute Code(s): F03.90 - UNSPECIFIED DEMENTIA WITHOUT BEHAVIORAL DISTURBANCE SNOMED Code(s): 85130355 Comment: I will try to get a history for this from the family. (7) Atrial flutter Current Visit: Yes Status: Acute Code(s): I48.92 - UNSPECIFIED ATRIAL FLUTTER SNOMED Code(s): 0601101 Comment: Continue enoxaparin, metoprolol. (8) CKD (chronic kidney disease) Current Visit: Yes Status: Acute Code(s): N18.9 - CHRONIC KIDNEY DISEASE, UNSPECIFIED SNOMED Code(s): 749497979 Comment: Slight improvement first hospital night. Repeat BMP 02/18.
--- NOTE | 2017-02-17 09:39 | PN ---
Progress Note - Progress Note Date of Service: 02/17/17 Note: I discussed at length with her the dx, prognosis, management of her dementia and gait disorder Time spent on pt care 45 minutes.
[2017-02-17] MEDS: Sucralfate TAB* 1 GM PO SCH ×4 (10:24→20:54)
[2017-02-17] MEDS: Polyethylene Glycol 3350* 17 GM PACKET PO SCH (10:24)
[2017-02-17] MEDS: Metoprolol Succinate XL TAB* 100 MG PO SCH (11:05)
[2017-02-17] MEDS: Acetaminophen TAB* 325 MG PO SCH ×4 (11:05→20:53)
[2017-02-17] MEDS: Enoxaparin(*) 150 MG/ML 1 ML SYRINGE SUBCUT SCH (11:05)
[2017-02-17] MEDS: Lactobacillus Acidophilu (GG)* 1 CAP CAP PO SCH ×2 (11:05→20:53)
[2017-02-17] MEDS: Omeprazole CAP* 20 MG PO SCH (11:06)
[2017-02-17] MEDS: Zinc Oxide 40% (TOPICAL)* TUBE TOPICAL SCH ×3 (11:06→21:01)
--- NOTE | 2017-02-17 11:09 | RAD ---
INDICATION: Bilateral hip and back pain. COMPARISON: Comparison is made with a prior x-ray study of the pelvis and hips from November 16, 2010. TECHNIQUE: An AP view of the pelvis was obtained. FINDINGS: The patient is rotated limiting the study. The bones are in normal alignment. No significant focal osseous abnormality or fracture is seen. There is mild to moderate bilateral osteoarthritic change in the hips right greater than left. There is moderate to severe degenerative disc disease in the visualized portion of the lower lumbar spine. IMPRESSION: LIMITED STUDY, MILD TO MODERATE BILATERAL OSTEOARTHRITIC CHANGE IN THE HIPS.
[2017-02-17] MEDS ORDERED: Benzonatate CAP* 100 MG PO PRN (11:41)
[2017-02-17] MEDS: Atorvastatin* 10 MG TAB PO SCH (18:27)
[2017-02-17] MEDS: Gabapentin CAP(*) 100 MG PO SCH (20:54)
[2017-02-18 07:06] LABS: BUN/Creatinine Ratio 22.7 (8-20); Calcium 8.9 mg/dL (8.6-10.3); EGFR African American 23.7 (>60); EGFR Non-African American 18.5 (>60); Potassium 5.4 mmol/L (3.5-5.0)
[2017-02-18] MEDS: Sucralfate TAB* 1 GM PO SCH ×4 (07:52→20:52)
[2017-02-18] MEDS: Polyethylene Glycol 3350* 17 GM PACKET PO SCH ×2 (08:02→08:11)
[2017-02-18] MEDS: Enoxaparin(*) 150 MG/ML 1 ML SYRINGE SUBCUT SCH (08:04)
[2017-02-18] MEDS: Acetaminophen TAB* 325 MG PO SCH ×4 (08:04→20:51)
[2017-02-18] MEDS: Omeprazole CAP* 20 MG PO SCH (08:04)
[2017-02-18] MEDS: Lactobacillus Acidophilu (GG)* 1 CAP CAP PO SCH ×2 (08:04→20:52)
[2017-02-18] MEDS: Metoprolol Succinate XL TAB* 100 MG PO SCH (08:09)
[2017-02-18] MEDS: Zinc Oxide 40% (TOPICAL)* TUBE TOPICAL SCH ×2 (09:40→14:07)
[2017-02-18] MEDS: Loperamide CAP* 2 MG PO PRN (11:44)
--- NOTE | 2017-02-18 14:24 | PN ---
Subjective Date of Service: 02/18/17 Interval History: She c/o diarrhea, states she had one loose BM today so far. Objective Active Medications: Acetaminophen (Tylenol Tab*) 650 mg PO Q4H PRN PRN Reason: PAIN/INFLAMMATION Last Admin: 02/17/17 02:49 Dose: 650 mg Acetaminophen (Tylenol Tab*) 650 mg PO QID [facility] Last Admin: 02/18/17 13:55 Dose: 650 mg Atorvastatin Calcium (Lipitor*) 10 mg PO QPM [facility] Last Admin: 02/17/17 18:27 Dose: 10 mg Benzonatate (Tessalon Cap*) 200 mg PO TID PRN PRN Reason: COUGH Dextrose (D50w Syringe 50 Ml*) 12.5 gm IV PUSH .FOR FS < 60 - SS PRN PRN Reason: FS < 60 Enoxaparin Sodium (Lovenox(*)) 140 mg SUBCUT Q24H [facility] Last Admin: 02/18/17 08:04 Dose: 140 mg Gabapentin (Neurontin Cap(*)) 100 mg PO BEDTIME [facility] Last Admin: 02/17/17 20:54 Dose: 100 mg Ibuprofen (Advil Tab*) 200 mg PO Q6H PRN PRN Reason: PAIN Last Admin: 02/15/17 22:12 Dose: 200 mg Lactobacillus Rhamnosus (Culturelle*) 1 cap PO BID [facility] Last Admin: 02/18/17 08:04 Dose: 1 cap Loperamide HCl (Imodium Cap*) 2 mg PO DAILY PRN PRN Reason: LOOSE STOOLS Last Admin: 02/18/17 11:44 Dose: 2 mg Metoprolol Succinate (Toprol Xl Tab*) 100 mg PO DAILY [facility] Last Admin: 02/18/17 08:09 Dose: 100 mg Omeprazole (Prilosec Cap*) 20 mg PO DAILY [facility] Last Admin: 02/18/17 08:04 Dose: 20 mg Polyethylene Glycol/Electrolytes (Miralax*) 17 gm PO DAILY [facility] Last Admin: 02/18/17 08:11 Dose: Not Given Sucralfate (Carafate*) 1 gm PO ACHS [facility] Last Admin: 02/18/17 11:45 Dose: 1 gm Zinc Oxide (Zinc Oxide 40% (Topical)*) 1 applic TOPICAL TID [facility] Last Admin: 02/18/17 14:07 Dose: 1 applic Vital Signs 02/17/17 02/17/17 02/17/17 15:57 20:00 20:43 Temperature 97.2 F 97.8 F Pulse Rate 74 77 Respiratory 22 16 24 Rate Blood Pressure 126/50 129/48 (mmHg) O2 Sat by Pulse 86 100 Oximetry 02/17/17 02/17/17 02/18/17 20:54 22:54 00:00 Temperature Pulse Rate Respiratory 18 16 Rate Blood Pressure (mmHg) O2 Sat by Pulse 98 Oximetry 02/18/17 02/18/17 02/18/17 00:06 04:15 07:31 Temperature 97.4 F 98.0 F Pulse Rate 75 75 75 Respiratory 16 16 20 Rate Blood Pressure 106/91 127/38 120/43 (mmHg) O2 Sat by Pulse 98 98 98 Oximetry 02/18/17 02/18/17 02/18/17 08:00 11:26 11:44 Temperature 97.5 F Pulse Rate 77 Respiratory 20 18 18 Rate Blood Pressure 118/44 (mmHg) O2 Sat by Pulse 100 Oximetry 02/18/17 13:44 Temperature Pulse Rate Respiratory 16 Rate Blood Pressure (mmHg) O2 Sat by Pulse Oximetry Oxygen Devices in Use Now: None Appearance: Alert, partly up in bed. In fair spirits. Looks comfortable. Extremities: No Edema, No Clubbing, Cyanosis, - Skin: No Rash or Ulcers, No Nodules or Sclerosis, - Neurological: Alert and Oriented x 3, NL Sensation Result Diagrams: 02/15/17 13:53 02/18/17 06:26 Additional Lab and Data: Lab Results 02/15/17 02/15/17 02/15/17 Range/Units 13:53 13:53 13:53 WBC 8.1 (3.5-10.8) 10^3/ul RBC 3.74 L (4.0-5.4) 10^6/ul Hgb 10.9 L (12.0-16.0) g/dl Hct 34 L (35-47) % MCV 91 (80-97) fL MCH 29 (27-31) pg MCHC 32 (31-36) g/dl RDW 15 (10.5-15) % Plt Count 252 (150-450) 10^3/ul MPV 7 L (7.4-10.4) um3 Neut % (Auto) 83.7 H (38-83) % Lymph % (Auto) 5.9 L (25-47) % Walsh % (Auto) 8.5 (1-9) % Eos % (Auto) 1.1 (0-6) % Baso % (Auto) 0.8 (0-2) % Absolute Neuts (auto) 6.8 (1.5-7.7) 10^3/ul Absolute Lymphs (auto) 0.5 L (1.0-4.8) 10^3/ul Absolute Monos (auto) 0.7 (0-0.8) 10^3/ul Absolute Eos (auto) 0.1 (0-0.6) 10^3/ul Absolute Basos (auto) 0.1 (0-0.2) 10^3/ul Absolute Nucleated RBC 0 10^3/ul Nucleated RBC % 0 Sodium 131 L (133-145) mmol/L Potassium 5.5 H (3.5-5.0) mmol/L Chloride 101 (101-111) mmol/L Carbon Dioxide 23 (22-32) mmol/L Anion Gap 7 (2-11) mmol/L BUN 53 H (6-24) mg/dL Creatinine 2.60 H (0.51-0.95) mg/dL Est GFR ( Amer) 23.2 (>60) Est GFR (Non-Af Amer) 18.0 (>60) BUN/Creatinine Ratio 20.4 H (8-20) Glucose 157 H (70-100) mg/dL POC Glucose (mg/dL) (74-106) mg/dL Lactic Acid 1.1 (0.5-2.0) mmol/L Calcium 9.3 (8.6-10.3) mg/dL Magnesium 1.9 (1.9-2.7) mg/dL Total Bilirubin 0.40 (0.2-1.0) mg/dL AST 15 (13-39) U/L ALT 10 (7-52) U/L Alkaline Phosphatase 85 (34-104) U/L Troponin I 0.01 (<0.04) ng/mL Total Protein 6.6 (6.4-8.9) g/dL Albumin 3.2 (3.2-5.2) g/dL Globulin 3.4 (2-4) g/dL Albumin/Globulin Ratio 0.9 L (1-3) TSH 2.39 (0.34-5.60) mcIU/mL Urine Color Urine Appearance Urine pH (5-9) Ur Specific [place] (1.010-1.030) Urine Protein (Negative) Urine Ketones (Negative) Urine Blood (Negative) Urine Nitrate (Negative) Urine Bilirubin (Negative) Urine Urobilinogen (Negative) Ur Leukocyte Esterase (Negative) Urine WBC (Auto) (Absent) Urine RBC (Auto) (Absent) Ur Squamous Epith Cells (Absent) Ur Transition Epith Cell (Absent) Urine Bacteria (Absent) Hyaline Casts (Absent) Urine Glucose (Negative) 02/15/17 02/15/17 02/15/17 Range/Units 15:35 17:48 22:18 WBC (3.5-10.8) 10^3/ul RBC (4.0-5.4) 10^6/ul Hgb (12.0-16.0) g/dl Hct (35-47) % MCV (80-97) fL MCH (27-31) pg MCHC (31-36) g/dl RDW (10.5-15) % Plt Count (150-450) 10^3/ul MPV (7.4-10.4) um3 Neut % (Auto) (38-83) % Lymph % (Auto) (25-47) % [place] % (Auto) (1-9) % Eos % (Auto) (0-6) % Baso % (Auto) (0-2) % Absolute Neuts (auto) (1.5-7.7) 10^3/ul Absolute Lymphs (auto) (1.0-4.8) 10^3/ul Absolute Monos (auto) (0-0.8) 10^3/ul Absolute Eos (auto) (0-0.6) 10^3/ul Absolute Basos (auto) (0-0.2) 10^3/ul Absolute Nucleated RBC 10^3/ul Nucleated RBC % Sodium (133-145) mmol/L Potassium (3.5-5.0) mmol/L Chloride (101-111) mmol/L Carbon Dioxide (22-32) mmol/L Anion Gap (2-11) mmol/L BUN (6-24) mg/dL Creatinine (0.51-0.95) mg/dL Est GFR ( Amer) (>60) Est GFR (Non-Af Amer) (>60) BUN/Creatinine Ratio (8-20) Glucose (70-100) mg/dL POC Glucose (mg/dL) 93 90 (74-106) mg/dL Lactic Acid (0.5-2.0) mmol/L Calcium (8.6-10.3) mg/dL Magnesium (1.9-2.7) mg/dL Total Bilirubin (0.2-1.0) mg/dL AST (13-39) U/L ALT (7-52) U/L Alkaline Phosphatase (34-104) U/L Troponin I (<0.04) ng/mL Total Protein (6.4-8.9) g/dL Albumin (3.2-5.2) g/dL Globulin (2-4) g/dL Albumin/Globulin Ratio (1-3) TSH (0.34-5.60) mcIU/mL Urine Color Yellow Urine Appearance Cloudy Urine pH 5.0 (5-9) Ur Specific [place] 1.006 L (1.010-1.030) Urine Protein Negative (Negative) Urine Ketones Negative (Negative) Urine Blood 2+ H (Negative) Urine Nitrate Negative (Negative) Urine Bilirubin Negative (Negative) Urine Urobilinogen Negative (Negative) Ur Leukocyte Esterase 3+ H (Negative) Urine WBC (Auto) 2+(11-20/hpf) H (Absent) Urine RBC (Auto) 2+(6-10/hpf) H (Absent) Ur Squamous Epith Cells Present H (Absent) Ur Transition Epith Cell Present H (Absent) Urine Bacteria 1+ H (Absent) Hyaline Casts Present H (Absent) Urine Glucose Negative (Negative) 02/16/17 02/16/17 02/16/17 Range/Units 06:36 07:52 07:57 WBC (3.5-10.8) 10^3/ul RBC (4.0-5.4) 10^6/ul Hgb (12.0-16.0) g/dl Hct (35-47) % MCV (80-97) fL MCH (27-31) pg MCHC (31-36) g/dl RDW (10.5-15) % Plt Count (150-450) 10^3/ul MPV (7.4-10.4) um3 Neut % (Auto) (38-83) % Lymph % (Auto) (25-47) % [place] % (Auto) (1-9) % Eos % (Auto) (0-6) % Baso % (Auto) (0-2) % Absolute Neuts (auto) (1.5-7.7) 10^3/ul Absolute Lymphs (auto) (1.0-4.8) 10^3/ul Absolute Monos (auto) (0-0.8) 10^3/ul Absolute Eos (auto) (0-0.6) 10^3/ul Absolute Basos (auto) (0-0.2) 10^3/ul Absolute Nucleated RBC 10^3/ul Nucleated RBC % Sodium 130 L (133-145) mmol/L Potassium 5.0 (3.5-5.0) mmol/L Chloride 108 (101-111) mmol/L Carbon Dioxide 22 (22-32) mmol/L Anion Gap (2-11) mmol/L BUN 55 H (6-24) mg/dL Creatinine 2.46 H (0.51-0.95) mg/dL Est GFR ( Amer) 24.7 (>60) Est GFR (Non-Af Amer) 19.2 (>60) BUN/Creatinine Ratio 22.4 H (8-20) Glucose 55 L (70-100) mg/dL POC Glucose (mg/dL) 43 L 63 L (74-106) mg/dL Lactic Acid (0.5-2.0) mmol/L Calcium 8.8 (8.6-10.3) mg/dL Magnesium (1.9-2.7) mg/dL Total Bilirubin (0.2-1.0) mg/dL AST (13-39) U/L ALT (7-52) U/L Alkaline Phosphatase (34-104) U/L Troponin I (<0.04) ng/mL Total Protein (6.4-8.9) g/dL Albumin (3.2-5.2) g/dL Globulin (2-4) g/dL Albumin/Globulin Ratio (1-3) TSH (0.34-5.60) mcIU/mL Urine Color Urine Appearance Urine pH (5-9) Ur Specific [place] (1.010-1.030) Urine Protein (Negative) Urine Ketones (Negative) Urine Blood (Negative) Urine Nitrate (Negative) Urine Bilirubin (Negative) Urine Urobilinogen (Negative) Ur Leukocyte Esterase (Negative) Urine WBC (Auto) (Absent) Urine RBC (Auto) (Absent) Ur Squamous Epith Cells (Absent) Ur Transition Epith Cell (Absent) Urine Bacteria (Absent) Hyaline Casts (Absent) Urine Glucose (Negative) Microbiology and Other Data: Microbiology 02/15/17 18:30 Nasal Screen MRSA (PCR)(MARNIE) - Final Nasal Mrsa Negative Assess/Plan/Problems-Billing Assessment: - Patient Problems (1) Back pain Current Visit: Yes Status: Acute Code(s): M54.9 - DORSALGIA, UNSPECIFIED SNOMED Code(s): 537027432 Comment: Continue scheduled APAP. Pelvis X-ray showed mild to mod arthritic change both hips. (2) Difficulty walking Current Visit: Yes Status: Acute Code(s): R26.2 - DIFFICULTY IN WALKING, NOT ELSEWHERE CLASSIFIED SNOMED Code(s): 137880124 Comment: She gives back pain as the reason. I think she also lacks motivation to walk. Initial PT eval done. Pt will need STR. (3) Diabetes Current Visit: Yes Status: Acute Code(s): E11.9 - TYPE 2 DIABETES MELLITUS WITHOUT COMPLICATIONS SNOMED Code(s): 52548938 Comment: Off all hypoglycemics. Fasting FS glucose 117, 139 on . (4) Chronic diarrhea Current Visit: Yes Status: Acute Code(s): K52.9 - NONINFECTIVE GASTROENTERITIS AND COLITIS, UNSPECIFIED SNOMED Code(s): 628470153 Comment: Pt reports her normal is 2-3 BM per day. Low lactose diet ordered. (5) Morbid obesity Current Visit: Yes Status: Acute Code(s): E66.01 - MORBID (SEVERE) OBESITY DUE TO EXCESS CALORIES SNOMED Code(s): 370545138 Comment: BMI 47.1. (6) Dementia Current Visit: Yes Status: Acute Code(s): F03.90 - UNSPECIFIED DEMENTIA WITHOUT BEHAVIORAL DISTURBANCE SNOMED Code(s): 34514169 Comment: Slowly progressive per . (7) Atrial flutter Current Visit: Yes Status: Acute Code(s): I48.92 - UNSPECIFIED ATRIAL FLUTTER SNOMED Code(s): 4757690 Comment: Continue enoxaparin, metoprolol. (8) CKD (chronic kidney disease) Current Visit: Yes Status: Acute Code(s): N18.9 - CHRONIC KIDNEY DISEASE, UNSPECIFIED SNOMED Code(s): 554753951 Comment: Stable.
[2017-02-18] MEDS: Atorvastatin* 10 MG TAB PO SCH (18:01)
[2017-02-18] MEDS: Gabapentin CAP(*) 100 MG PO SCH (20:52)
[2017-02-19] MEDS: Zinc Oxide 40% (TOPICAL)* TUBE TOPICAL SCH ×3 (03:55→14:49)
[2017-02-19] MEDS: Omeprazole CAP* 20 MG PO SCH (08:06)
[2017-02-19] MEDS: oxyCODONE TAB* 5 MG TAB PO PRN (08:06)
[2017-02-19] MEDS: Acetaminophen TAB* 325 MG PO SCH ×4 (08:06→22:33)
[2017-02-19] MEDS: Metoprolol Succinate XL TAB* 100 MG PO SCH (08:06)
[2017-02-19] MEDS: Lactobacillus Acidophilu (GG)* 1 CAP CAP PO SCH ×2 (08:06→22:29)
[2017-02-19] MEDS: Sucralfate TAB* 1 GM PO SCH ×5 (08:07→22:33)
[2017-02-19] MEDS: Enoxaparin(*) 150 MG/ML 1 ML SYRINGE SUBCUT SCH ×2 (08:08→09:49)
[2017-02-19] MEDS: Polyethylene Glycol 3350* 17 GM PACKET PO SCH (09:34)
--- NOTE | 2017-02-19 09:47 | RAD ---
INDICATION: Abdominal pain. COMPARISON: There are no prior studies available for comparison. TECHNIQUE: Frontal supine films of the abdomen were obtained. FINDINGS: The small bowel and colon appear nondistended. There are prominent vascular calcifications present throughout the abdomen. There are calcifications over both renal regions some of which appear to be vascular. There are also likely small bilateral renal calculi. IMPRESSION: 1. NO EVIDENCE FOR OBSTRUCTION. 2. PROMINENT VASCULAR CALCIFICATIONS AND PROBABLE SMALL BILATERAL RENAL CALCULI.
[2017-02-19] MEDS ORDERED: Sodium Polystyrene ORAL.SOL* 15 GM/60 ML BTL PO SCH ×2 (10:00→11:00)
--- NOTE | 2017-02-19 10:11 | PN ---
Subjective Date of Service: 02/19/17 Interval History: Pt c/o abdominal pain earlier this AM. Better now. Staff noted blood with her BM today. Objective Active Medications: Acetaminophen (Tylenol Tab*) 650 mg PO Q4H PRN PRN Reason: PAIN/INFLAMMATION Last Admin: 02/17/17 02:49 Dose: 650 mg Acetaminophen (Tylenol Tab*) 650 mg PO QID [facility] Last Admin: 02/19/17 08:06 Dose: 650 mg Atorvastatin Calcium (Lipitor*) 10 mg PO QPM [facility] Last Admin: 02/18/17 18:01 Dose: 10 mg Benzonatate (Tessalon Cap*) 200 mg PO TID PRN PRN Reason: COUGH Dextrose (D50w Syringe 50 Ml*) 12.5 gm IV PUSH .FOR FS < 60 - SS PRN PRN Reason: FS < 60 Enoxaparin Sodium (Lovenox(*)) 140 mg SUBCUT Q24H [facility] Last Admin: 02/19/17 09:49 Dose: 140 mg Gabapentin (Neurontin Cap(*)) 100 mg PO BEDTIME [facility] Last Admin: 02/18/17 20:52 Dose: 100 mg Ibuprofen (Advil Tab*) 200 mg PO Q6H PRN PRN Reason: PAIN Last Admin: 02/15/17 22:12 Dose: 200 mg Lactobacillus Rhamnosus (Culturelle*) 1 cap PO BID [facility] Last Admin: 02/19/17 08:06 Dose: 1 cap Loperamide HCl (Imodium Cap*) 2 mg PO DAILY PRN PRN Reason: LOOSE STOOLS Last Admin: 02/18/17 11:44 Dose: 2 mg Metoprolol Succinate (Toprol Xl Tab*) 100 mg PO DAILY [facility] Last Admin: 02/19/17 08:06 Dose: 100 mg Omeprazole (Prilosec Cap*) 20 mg PO DAILY [facility] Last Admin: 02/19/17 08:06 Dose: 20 mg Oxycodone HCl (Roxycodone Tab*) 5 mg PO Q4H PRN PRN Reason: PAIN Last Admin: 02/19/17 08:06 Dose: 5 mg Polyethylene Glycol/Electrolytes (Miralax*) 17 gm PO DAILY [facility] Last Admin: 02/19/17 09:34 Dose: Not Given Sodium Polystyrene Sulfonate (Kayexalate Oral.Yamila*) 15 gm PO TUSA [facility] Sucralfate (Carafate*) 1 gm PO ACHS [facility] Last Admin: 02/19/17 08:24 Dose: 1 gm Zinc Oxide (Zinc Oxide 40% (Topical)*) 1 applic TOPICAL TID [facility] Last Admin: 02/19/17 09:49 Dose: Not Given Vital Signs 02/18/17 02/18/17 02/18/17 11:26 11:44 13:44 Temperature 97.5 F Pulse Rate 77 Respiratory 18 18 16 Rate Blood Pressure 118/44 (mmHg) O2 Sat by Pulse 100 Oximetry 02/18/17 02/18/17 02/18/17 16:13 19:21 19:51 Temperature 97.4 F 97.4 F Pulse Rate 75 75 Respiratory 16 16 Rate Blood Pressure 131/53 121/50 (mmHg) O2 Sat by Pulse 100 100 99 Oximetry 02/18/17 02/18/17 02/18/17 20:52 20:58 22:52 Temperature Pulse Rate Respiratory 16 16 18 Rate Blood Pressure (mmHg) O2 Sat by Pulse Oximetry 02/18/17 02/19/17 02/19/17 23:36 04:02 07:48 Temperature 98.0 F 97.1 F 97.5 F Pulse Rate 75 75 75 Respiratory 16 20 20 Rate Blood Pressure 133/50 119/53 147/52 (mmHg) O2 Sat by Pulse 99 99 100 Oximetry 02/19/17 02/19/17 02/19/17 08:00 08:06 09:27 Temperature Pulse Rate Respiratory 18 20 Rate Blood Pressure (mmHg) O2 Sat by Pulse 99 99 Oximetry 02/19/17 10:03 Temperature Pulse Rate Respiratory 18 Rate Blood Pressure (mmHg) O2 Sat by Pulse Oximetry Oxygen Devices in Use Now: None Appearance: Alert, in a chair. In fair spirits. Looks comfortable. Eyes: No Scleral Icterus Respiratory: Symmetrical Chest Expansion and Respiratory Effort, Clear to Auscultation, Clear to Percussion Cardiovascular: NL Sounds; No Murmurs; No JVD, RRR, No Edema, - Abdominal: NL Sounds; No Tenderness; No Distention, No Hepatosplenomegaly, - Neurological: Alert and Oriented x 3, NL Sensation Result Diagrams: 02/15/17 13:53 02/18/17 06:26 Additional Lab and Data: Lab Results 02/15/17 02/15/17 02/15/17 Range/Units 13:53 13:53 13:53 WBC 8.1 (3.5-10.8) 10^3/ul RBC 3.74 L (4.0-5.4) 10^6/ul Hgb 10.9 L (12.0-16.0) g/dl Hct 34 L (35-47) % MCV 91 (80-97) fL MCH 29 (27-31) pg MCHC 32 (31-36) g/dl RDW 15 (10.5-15) % Plt Count 252 (150-450) 10^3/ul MPV 7 L (7.4-10.4) um3 Neut % (Auto) 83.7 H (38-83) % Lymph % (Auto) 5.9 L (25-47) % [place] % (Auto) 8.5 (1-9) % Eos % (Auto) 1.1 (0-6) % Baso % (Auto) 0.8 (0-2) % Absolute Neuts (auto) 6.8 (1.5-7.7) 10^3/ul Absolute Lymphs (auto) 0.5 L (1.0-4.8) 10^3/ul Absolute Monos (auto) 0.7 (0-0.8) 10^3/ul Absolute Eos (auto) 0.1 (0-0.6) 10^3/ul Absolute Basos (auto) 0.1 (0-0.2) 10^3/ul Absolute Nucleated RBC 0 10^3/ul Nucleated RBC % 0 Sodium 131 L (133-145) mmol/L Potassium 5.5 H (3.5-5.0) mmol/L Chloride 101 (101-111) mmol/L Carbon Dioxide 23 (22-32) mmol/L Anion Gap 7 (2-11) mmol/L BUN 53 H (6-24) mg/dL Creatinine 2.60 H (0.51-0.95) mg/dL Est GFR ( Amer) 23.2 (>60) Est GFR (Non-Af Amer) 18.0 (>60) BUN/Creatinine Ratio 20.4 H (8-20) Glucose 157 H (70-100) mg/dL POC Glucose (mg/dL) (74-106) mg/dL Lactic Acid 1.1 (0.5-2.0) mmol/L Calcium 9.3 (8.6-10.3) mg/dL Magnesium 1.9 (1.9-2.7) mg/dL Total Bilirubin 0.40 (0.2-1.0) mg/dL AST 15 (13-39) U/L ALT 10 (7-52) U/L Alkaline Phosphatase 85 (34-104) U/L Troponin I 0.01 (<0.04) ng/mL Total Protein 6.6 (6.4-8.9) g/dL Albumin 3.2 (3.2-5.2) g/dL Globulin 3.4 (2-4) g/dL Albumin/Globulin Ratio 0.9 L (1-3) TSH 2.39 (0.34-5.60) mcIU/mL Urine Color Urine Appearance Urine pH (5-9) Ur Specific [place] (1.010-1.030) Urine Protein (Negative) Urine Ketones (Negative) Urine Blood (Negative) Urine Nitrate (Negative) Urine Bilirubin (Negative) Urine Urobilinogen (Negative) Ur Leukocyte Esterase (Negative) Urine WBC (Auto) (Absent) Urine RBC (Auto) (Absent) Ur Squamous Epith Cells (Absent) Ur Transition Epith Cell (Absent) Urine Bacteria (Absent) Hyaline Casts (Absent) Urine Glucose (Negative) 02/15/17 02/15/17 02/15/17 Range/Units 15:35 17:48 22:18 WBC (3.5-10.8) 10^3/ul RBC (4.0-5.4) 10^6/ul Hgb (12.0-16.0) g/dl Hct (35-47) % MCV (80-97) fL MCH (27-31) pg MCHC (31-36) g/dl RDW (10.5-15) % Plt Count (150-450) 10^3/ul MPV (7.4-10.4) um3 Neut % (Auto) (38-83) % Lymph % (Auto) (25-47) % [place] % (Auto) (1-9) % Eos % (Auto) (0-6) % Baso % (Auto) (0-2) % Absolute Neuts (auto) (1.5-7.7) 10^3/ul Absolute Lymphs (auto) (1.0-4.8) 10^3/ul Absolute Monos (auto) (0-0.8) 10^3/ul Absolute Eos (auto) (0-0.6) 10^3/ul Absolute Basos (auto) (0-0.2) 10^3/ul Absolute Nucleated RBC 10^3/ul Nucleated RBC % Sodium (133-145) mmol/L Potassium (3.5-5.0) mmol/L Chloride (101-111) mmol/L Carbon Dioxide (22-32) mmol/L Anion Gap (2-11) mmol/L BUN (6-24) mg/dL Creatinine (0.51-0.95) mg/dL Est GFR ( Amer) (>60) Est GFR (Non-Af Amer) (>60) BUN/Creatinine Ratio (8-20) Glucose (70-100) mg/dL POC Glucose (mg/dL) 93 90 (74-106) mg/dL Lactic Acid (0.5-2.0) mmol/L Calcium (8.6-10.3) mg/dL Magnesium (1.9-2.7) mg/dL Total Bilirubin (0.2-1.0) mg/dL AST (13-39) U/L ALT (7-52) U/L Alkaline Phosphatase (34-104) U/L Troponin I (<0.04) ng/mL Total Protein (6.4-8.9) g/dL Albumin (3.2-5.2) g/dL Globulin (2-4) g/dL Albumin/Globulin Ratio (1-3) TSH (0.34-5.60) mcIU/mL Urine Color Yellow Urine Appearance Cloudy Urine pH 5.0 (5-9) Ur Specific [place] 1.006 L (1.010-1.030) Urine Protein Negative (Negative) Urine Ketones Negative (Negative) Urine Blood 2+ H (Negative) Urine Nitrate Negative (Negative) Urine Bilirubin Negative (Negative) Urine Urobilinogen Negative (Negative) Ur Leukocyte Esterase 3+ H (Negative) Urine WBC (Auto) 2+(11-20/hpf) H (Absent) Urine RBC (Auto) 2+(6-10/hpf) H (Absent) Ur Squamous Epith Cells Present H (Absent) Ur Transition Epith Cell Present H (Absent) Urine Bacteria 1+ H (Absent) Hyaline Casts Present H (Absent) Urine Glucose Negative (Negative) 02/16/17 02/16/17 02/16/17 Range/Units 06:36 07:52 07:57 WBC (3.5-10.8) 10^3/ul RBC (4.0-5.4) 10^6/ul Hgb (12.0-16.0) g/dl Hct (35-47) % MCV (80-97) fL MCH (27-31) pg MCHC (31-36) g/dl RDW (10.5-15) % Plt Count (150-450) 10^3/ul MPV (7.4-10.4) um3 Neut % (Auto) (38-83) % Lymph % (Auto) (25-47) % [place] % (Auto) (1-9) % Eos % (Auto) (0-6) % Baso % (Auto) (0-2) % Absolute Neuts (auto) (1.5-7.7) 10^3/ul Absolute Lymphs (auto) (1.0-4.8) 10^3/ul Absolute Monos (auto) (0-0.8) 10^3/ul Absolute Eos (auto) (0-0.6) 10^3/ul Absolute Basos (auto) (0-0.2) 10^3/ul Absolute Nucleated RBC 10^3/ul Nucleated RBC % Sodium 130 L (133-145) mmol/L Potassium 5.0 (3.5-5.0) mmol/L Chloride 108 (101-111) mmol/L Carbon Dioxide 22 (22-32) mmol/L Anion Gap (2-11) mmol/L BUN 55 H (6-24) mg/dL Creatinine 2.46 H (0.51-0.95) mg/dL Est GFR ( Amer) 24.7 (>60) Est GFR (Non-Af Amer) 19.2 (>60) BUN/Creatinine Ratio 22.4 H (8-20) Glucose 55 L (70-100) mg/dL POC Glucose (mg/dL) 43 L 63 L (74-106) mg/dL Lactic Acid (0.5-2.0) mmol/L Calcium 8.8 (8.6-10.3) mg/dL Magnesium (1.9-2.7) mg/dL Total Bilirubin (0.2-1.0) mg/dL AST (13-39) U/L ALT (7-52) U/L Alkaline Phosphatase (34-104) U/L Troponin I (<0.04) ng/mL Total Protein (6.4-8.9) g/dL Albumin (3.2-5.2) g/dL Globulin (2-4) g/dL Albumin/Globulin Ratio (1-3) TSH (0.34-5.60) mcIU/mL Urine Color Urine Appearance Urine pH (5-9) Ur Specific [place] (1.010-1.030) Urine Protein (Negative) Urine Ketones (Negative) Urine Blood (Negative) Urine Nitrate (Negative) Urine Bilirubin (Negative) Urine Urobilinogen (Negative) Ur Leukocyte Esterase (Negative) Urine WBC (Auto) (Absent) Urine RBC (Auto) (Absent) Ur Squamous Epith Cells (Absent) Ur Transition Epith Cell (Absent) Urine Bacteria (Absent) Hyaline Casts (Absent) Urine Glucose (Negative) Microbiology and Other Data: Microbiology 02/15/17 18:30 Nasal Screen MRSA (PCR)(MARNIE) - Final Nasal Mrsa Negative Assess/Plan/Problems-Billing Assessment: - Patient Problems (1) Back pain Current Visit: Yes Status: Acute Code(s): M54.9 - DORSALGIA, UNSPECIFIED SNOMED Code(s): 620112828 Comment: Continue scheduled APAP. Pelvis X-ray showed mild to mod arthritic change both hips. (2) Difficulty walking Current Visit: Yes Status: Acute Code(s): R26.2 - DIFFICULTY IN WALKING, NOT ELSEWHERE CLASSIFIED SNOMED Code(s): 965141347 Comment: She gives back pain as the reason. I think she also lacks motivation to walk. Initial PT eval done. Pt will need STR. (3) Diabetes Current Visit: Yes Status: Acute Code(s): E11.9 - TYPE 2 DIABETES MELLITUS WITHOUT COMPLICATIONS SNOMED Code(s): 74377946 Comment: Off all hypoglycemics. Fasting FS glucose 117, 139 on 02/17-. FS glucose Q 48 H. (4) Chronic diarrhea Current Visit: Yes Status: Acute Code(s): K52.9 - NONINFECTIVE GASTROENTERITIS AND COLITIS, UNSPECIFIED SNOMED Code(s): 031375426 Comment: Pt reports her normal is 2-3 BM per day. Low lactose diet ordered. (5) Morbid obesity Current Visit: Yes Status: Acute Code(s): E66.01 - MORBID (SEVERE) OBESITY DUE TO EXCESS CALORIES SNOMED Code(s): 618677135 Comment: BMI 47.1. (6) Dementia Current Visit: Yes Status: Acute Code(s): F03.90 - UNSPECIFIED DEMENTIA WITHOUT BEHAVIORAL DISTURBANCE SNOMED Code(s): 72533069 Comment: Slowly progressive per . (7) Atrial flutter Current Visit: Yes Status: Acute Code(s): I48.92 - UNSPECIFIED ATRIAL FLUTTER SNOMED Code(s): 4472759 Comment: Continue enoxaparin, metoprolol. (8) CKD (chronic kidney disease) Current Visit: Yes Status: Acute Code(s): N18.9 - CHRONIC KIDNEY DISEASE, UNSPECIFIED SNOMED Code(s): 360016885 Comment: Stable. (9) Lower GI bleeding Current Visit: Yes Status: Acute Code(s): K92.2 - GASTROINTESTINAL HEMORRHAGE, UNSPECIFIED SNOMED Code(s): 39452844 Comment: CBC twice on 02/19, aain 02/20. Consult to Dr. Green. ? ischemic colitis. Hold enoxaparin, may restart if no significant blood loss.
[2017-02-19 11:15] LABS: Hematocrit 32 % (35-47); Hemoglobin 10.1 g/dl (12.0-16.0); Mean Corpuscular HGB Conc 32 g/dl (31-36); Mean Corpuscular Hemoglobin 30 pg (27-31); Mean Corpuscular Volume 94 fL (80-97); Mean Platelet Volume 7 um3 (7.4-10.4); Red Cell Distribution Width 16 % (10.5-15); White Blood Count 7.3 10^3/ul (3.5-10.8)
[2017-02-19 11:25] LABS: Add Diff/Slide Review? Slide Review Added; Comments Flag Yes
--- NOTE | 2017-02-19 14:46 | PN ---
Progress Note - Progress Note Date of Service: 02/19/17 Note: Discussed with Dr. Fontanez and Dr. Green. Likely vaginal bleeding. Transvaginal US to evaluate endometrial stripe ordered. Dr. Fontanez may do endometrial bx.
[2017-02-19] MEDS: Atorvastatin* 10 MG TAB PO SCH (16:45)
[2017-02-19 17:12] LABS: Hematocrit 30 % (35-47); Hemoglobin 9.6 g/dl (12.0-16.0); Mean Corpuscular HGB Conc 32 g/dl (31-36); Mean Corpuscular Hemoglobin 30 pg (27-31); Mean Corpuscular Volume 94 fL (80-97); Mean Platelet Volume 7 um3 (7.4-10.4); Red Blood Count 3.18 10^6/ul (4.0-5.4); Red Cell Distribution Width 16 % (10.5-15); White Blood Count 6.6 10^3/ul (3.5-10.8)
[2017-02-19 17:13] LABS: Add Diff/Slide Review? Slide Review Added; Comments Flag Yes
[2017-02-19 17:48] LABS: Eosinophils % 2 % (0-6); Immature Granulocytes 3 % (0-9); Metamyelocytes % 1 % (0-2); Myelocytes % 1 % (0-1); Neutrophil % 76 % (38-83)
[2017-02-19 17:49] LABS: RBC Morphology Normal (Normal)
--- NOTE | 2017-02-19 19:33 | RAD ---
Indication: Severe abdominal pain. Bleeding which may be vaginal or rectal. Denies previous surgery. Comparison: February 17, 2017 pelvis radiograph. Technique: The patient was unable to tolerate transvaginal exam. Transabdominal pelvic ultrasound performed. Report: The urinary bladder is largely decompressed without visualized gross abnormality. The uterus is not visualized. Neither the RIGHT or LEFT ovary is definitively visualized. Measured avascular heterogeneous echogenicity . May represent stool within a bowel loop. Suggestion of moderate free fluid in the dependent pelvis. IMPRESSION: Limited exam without visualization of the uterus or definitive visualization of the ovaries without history of previous hysterectomy or ovary resection. Suggestion of moderate free fluid in the dependent pelvis. Correlate with clinical assessment and consider noncontrast CT for further evaluation. Results discussed with Dr. Fontanez 02/19/2017 7:29 PM EDT
[2017-02-19] MEDS: Gabapentin CAP(*) 100 MG PO SCH (22:33)
--- NOTE | 2017-02-19 23:13 | CONS ---
GASTROENTEROLOGY CONSULT: DATE: CONSULTING PHYSICIAN: Dean Lopez REASON FOR CONSULTATION: Suspicion of blood in the stool and chronic diarrhea. HISTORY OF PRESENT ILLNESS: This 71-year-old woman with morbid obesity, dementia, atrial fibrillation, and debility was admitted here, dehydrated with some renal insufficiency. In the hospital here, she has been quite weak and debilitated. She has had loose stools. Last night over night, there was an impression of blood in the stool. She had been receiving Lovenox. Today, in cleaning up, the aides wondered if it was vaginal bleeding and indeed inspecting the toilet, one can see loose brown, mucoid stool in the back of the bowl and blood staining on the portion in the front and just a few drops in the front part of the water. During cleanup blood had been obtained by wiping the vaginal area. The patient's gives a history that she had had loose stool for over a year. She has had several investigations including a colonoscopy by Dr Lindsay sometime this spring and he was told verbally that it was normal. She has had prior colonoscopies. Most of the focus of the recent [facility] stay and rehab stay was with her weakness, renal status, and hydration. PAST MEDICAL HISTORY: 1. Morbid obesity. 2. Diabetes mellitus. 3. Atrial arrhythmias. 4. Hypertension. 5. Status post pacemaker. 6. Status post total knee replacement. MEDICATIONS: She was recently switched from Xarelto to Lovenox. 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 Her is still in good health. REVIEW OF SYSTEMS: While in the [facility], C. diff was negative x2 and stool occult blood negative. She was being treated for pneumonia. PHYSICAL EXAM: She is a chronically ill-appearing, morbidly obese woman, in no overt distress in the chair. She was positioned to a hospital bed. She is afebrile. Her lungs are clear, but effort is poor. Heart sounds are regular. The abdomen has multiple bruises presumably from anticoagulation shots. Bowel sounds are normal. The abdomen is soft, but there is a large panniculus and difficult to evaluate. She was positioned on her side. Digital rectal is normal with sphincter tone reduced. There is a lot of mucoid dark, brown stool sent for Hemoccult. DIAGNOSTIC STUDIES/LAB DATA: This admission, hemoglobin in the 10s, creatinine 2.5. IMPRESSION: This woman with chronic diarrhea that has not been diagnosed appears to have anemia of chronic disease consistent with her renal function. There is no evidence of chronic GI blood loss. The exam at this time suggests that there is still no acute source of GI blood loss and the observed blood has been gynecologic in origin. No further workup is planned. Her [facility] records will be requested. [id number]/[facility] #: [id number] MTDBacilio
[2017-02-20] MEDS: Zinc Oxide 40% (TOPICAL)* TUBE TOPICAL SCH ×3 (00:22→15:47)
[2017-02-20 06:41] LABS: Hematocrit 29 % (35-47); Hemoglobin 9.4 g/dl (12.0-16.0); Mean Corpuscular HGB Conc 32 g/dl (31-36); Mean Corpuscular Hemoglobin 30 pg (27-31); Mean Corpuscular Volume 93 fL (80-97); Mean Platelet Volume 8 um3 (7.4-10.4); Red Blood Count 3.12 10^6/ul (4.0-5.4); Red Cell Distribution Width 16 % (10.5-15); White Blood Count 6.3 10^3/ul (3.5-10.8)
[2017-02-20 06:43] LABS: Add Diff/Slide Review? Slide Review Added; Comments Flag Yes
--- NOTE | 2017-02-20 06:46 | CONS ---
CONSULTATION REPORT: DATE OF CONSULT: 02/19/17 TIME OF CONSULTATION: 10 p.m. HISTORY OF PRESENT ILLNESS: Mrs. Rinaldi is a 71-year-old postmenopausal lady who is morbidly obese with significant chronic medical problems. She was admitted to the hospital with acute renal failure, generalized weakness and chronic diarrhea. She also has a history of atrial flutter and diabetes. I was consulted due to presumptive postmenopausal bleeding as the patient was noted to have a bloody discharge in her bedsheets. PAST MEDICAL HISTORY: Diabetes mellitus, atrial flutter, recurrent urinary tract infections, hypertension, and chronic diarrhea. PAST SURGICAL HISTORY: Pacemaker insertion and right total knee replacement. HOME MEDICATIONS: Consists of: 1. Desitin. 2. MiraLAX. 3. Imodium. 4. Acidophilus. 5. Simvastatin. 6. Hydrochlorothiazide. 7. Metoprolol succinate. 8. Xarelto. 9. Iron sulfate. 10. Carafate. 11. Protonix. 12. Gabapentin. ALLERGIES: PROPOXYPHENE. FAMILY HISTORY: Unremarkable for cancer. SOCIAL HISTORY: The patient is a former smoker. . On my evaluation of the patient she appears in acute distress complaining of a colicky abdominal pain of increasing severity with each successive pain wave. The patient had been taken to the ultrasound prior to my examination for a pelvic ultrasound transvaginally. This could not be done due to her intolerance of a vaginal probe. An abdominal ultrasound was done of the pelvis ; however, this was inconclusive. I did review the ultrasound with Dr. Breen of Radiology. PHYSICAL EXAM: The patient's vital signs are stable. She is afebrile. She is in distress from abdominal pain. She is in bed, unable to give me an obstetrical or gynecologic history due to her preoccupation with pain. Abdomen- obese and tender in all quadrants, non distended with normal bowel sounds. Pelvic exam- external genitalia is within normal limits. There are no lesions noted. There is no blood or trace of blood on the external genitalia. The vaginal introitus also seems clear with no blood. I did a bimanual exam, I was able to insert a finger into the vagina and there was no blood in the glove. However, there was a bloody bowel movement in bed at the time of my examination. I/P Patients signs and symptoms are consistent with bloody stools I do not believe that her bleeding is from a vaginal source. After speaking with the radiologist, he recommended a CT scan of the abdomen and I agree. I believe that this patient's symptoms are from a GI source and perhaps the CT scan will provide some insight into that. But again I do not feel her bleeding is postmenopausal bleeding or from a [employer] etiology. Please reconsult if anything changes and [employer] input is necessary. [id number]/[facility] #: [id number] FREYA
[2017-02-20 06:54] LABS: BUN/Creatinine Ratio 25.4 (8-20); Calcium 8.9 mg/dL (8.6-10.3); EGFR African American 22.8 (>60); EGFR Non-African American 17.7 (>60); Potassium 5.2 mmol/L (3.5-5.0)
--- NOTE | 2017-02-20 07:49 | RAD ---
INDICATION: Abdominal pain COMPARISON: Sonogram February 19, 2017 TECHNIQUE: Noncontrast axial source images were obtained from the hemidiaphragms to the symphysis pubis. This examination was ordered without intravenous contrast and there is limited oral contrast opacification. Therefore, there are inherent limitations and conventional contrast enhanced imaging may be required. There are additional limitations due to beam hardening artifact from the patient's arms Lung bases: The lung bases are clear. There is cardiac pacemaker artifact. Liver: The liver is normal in size. Noncontrast imaging shows no evidence of a hepatic mass or ductal dilatation. Gallbladder: There are calcifications of the gallbladder wall with increased radiodensity in the fundal portion. Suggest gallbladder sonography with Doppler interrogation. Spleen: The spleen is normal in size. The noncontrast CT appearance is normal. Pancreas: Noncontrast imaging shows no pancreatic mass or ductal dilitation. Evaluation is limited. The pancreas is atrophic. Adrenal glands: The right adrenal gland is normal. There is a 2.4 x 2.5 cm left adrenal gland mass. Kidneys/Bladder: There is no evidence of nephrolithiasis or CT evidence of hydronephrosis. Noncontrast imaging shows no evidence of a renal mass. There is renal parenchymal thinning with prominent sinus fat. There are vascular calcifications. The bladder is unremarkable.. Adenopathy: There is an indeterminate 6.9 x 10.0 cm mass in the left lower abdomen with multiple additional smaller masses in the left iliac fossa. The next largest mass measures 4.5 cm. Evaluation is limited given the lack of intravenous contrast and limited oral contrast opacification. Fluid collections: There is mild to moderate ascites. There is stranding of the mesenteric nodularity suggesting omental cake formation. Vessels: There are atherosclerotic changes of the aorta and iliac vessels. There is no focal aneurysm. The IVC appears normal Pelvic organs: The uterus is not well delineated and may be absent. There is free fluid with multiple opacified loops of bowel in the minor pelvis in addition to the above-mentioned masses which further limits evaluation. GI tract: Evaluation of the bowel is limited without oral contrast. The stomach, small bowel, and lower GI tract appear grossly normal. There are no obstructive findings. The appendix is visualized and appears normal. Soft tissues: There is a left ventral anterior abdominal wall hernia containing fluid and bowel. Osseous structures: There are no acute osseous findings. IMPRESSION: 1. Ascites with presumed omental cake formation multiple intraperitoneal masses suggest peritoneal carcinomatosis. 2. Left adrenal mass, likely metastatic 3. Multiple porcelain gallbladder. Suggest follow-up ultrasonography. 4. Ventral wall hernia.
[2017-02-20] MEDS: Polyethylene Glycol 3350* 17 GM PACKET PO SCH (08:26)
[2017-02-20] MEDS: Sucralfate TAB* 1 GM PO SCH ×4 (08:27→23:56)
[2017-02-20] MEDS: Acetaminophen TAB* 325 MG PO SCH ×4 (08:27→23:55)
[2017-02-20] MEDS: Lactobacillus Acidophilu (GG)* 1 CAP CAP PO SCH ×2 (08:27→23:55)
[2017-02-20] MEDS: Metoprolol Succinate XL TAB* 100 MG PO SCH (08:27)
[2017-02-20] MEDS: Omeprazole CAP* 20 MG PO SCH (08:28)
[2017-02-20] MEDS ORDERED: Zosyn per Pharmacy* NOTE FOLLOW UP SCH (09:00)
[2017-02-20 09:35] LABS: C Reactive Protein 52.35 mg/L (< 5.00)
--- NOTE | 2017-02-20 09:38 | PN ---
Subjective Date of Service: 02/20/17 Interval History: Pt feels well. Forgetful, doesn't remember when her last BM was. stated that her rectal bleeding could be due to hemorrhoids and that she was diagnosed with hemorrhoids before. Denies abd pain, wishes her diet to be advanced. Last colonoscopy 3 years ago unremarkable as per pt. Was not following with [employer] routinely Objective Active Medications: Acetaminophen (Tylenol Tab*) 650 mg PO Q4H PRN PRN Reason: PAIN/INFLAMMATION Last Admin: 02/17/17 02:49 Dose: 650 mg Acetaminophen (Tylenol Tab*) 650 mg PO QID [facility] Last Admin: 02/20/17 08:27 Dose: 650 mg Atorvastatin Calcium (Lipitor*) 10 mg PO QPM [facility] Last Admin: 02/19/17 16:45 Dose: 10 mg Benzonatate (Tessalon Cap*) 200 mg PO TID PRN PRN Reason: COUGH Dextrose (D50w Syringe 50 Ml*) 12.5 gm IV PUSH .FOR FS < 60 - SS PRN PRN Reason: FS < 60 Gabapentin (Neurontin Cap(*)) 100 mg PO BEDTIME [facility] Last Admin: 02/19/17 22:33 Dose: 100 mg Ibuprofen (Advil Tab*) 200 mg PO Q6H PRN PRN Reason: PAIN Last Admin: 02/15/17 22:12 Dose: 200 mg Lactobacillus Rhamnosus (Culturelle*) 1 cap PO BID [facility] Last Admin: 02/20/17 08:27 Dose: 1 cap Loperamide HCl (Imodium Cap*) 2 mg PO DAILY PRN PRN Reason: LOOSE STOOLS Last Admin: 02/18/17 11:44 Dose: 2 mg Metoprolol Succinate (Toprol Xl Tab*) 100 mg PO DAILY [facility] Last Admin: 02/20/17 08:27 Dose: 100 mg Omeprazole (Prilosec Cap*) 20 mg PO DAILY [facility] Last Admin: 02/20/17 08:28 Dose: 20 mg Oxycodone HCl (Roxycodone Tab*) 5 mg PO Q4H PRN PRN Reason: PAIN Last Admin: 02/19/17 08:06 Dose: 5 mg Pharmacy Consult (Zosyn Per Pharmacy*) 1 note FOLLOW UP .ZOSYN PER PHARMACY [facility] Polyethylene Glycol/Electrolytes (Miralax*) 17 gm PO DAILY [facility] Last Admin: 02/20/17 08:26 Dose: 17 gm Sodium Polystyrene Sulfonate (Kayexalate Oral.Yamila*) 15 gm PO TuSa@0900 [facility] Last Admin: 02/19/17 11:09 Dose: 15 gm Sucralfate (Carafate*) 1 gm PO ACHS [facility] Last Admin: 02/20/17 08:27 Dose: 1 gm Zinc Oxide (Zinc Oxide 40% (Topical)*) 1 applic TOPICAL TID [facility] Last Admin: 02/20/17 00:22 Dose: Not Given Vital Signs 02/19/17 02/19/17 02/19/17 10:03 16:02 19:55 Temperature 97.6 F 97.5 F Pulse Rate 76 75 Respiratory 18 12 12 Rate Blood Pressure 122/58 130/49 (mmHg) O2 Sat by Pulse 100 100 Oximetry 02/19/17 02/19/17 02/19/17 22:33 22:59 23:52 Temperature 97.8 F Pulse Rate 75 Respiratory 18 18 14 Rate Blood Pressure 140/48 (mmHg) O2 Sat by Pulse 100 Oximetry 02/19/17 02/20/17 02/20/17 23:54 00:33 03:55 Temperature 98.0 F Pulse Rate 75 Respiratory 16 18 Rate Blood Pressure 154/64 (mmHg) O2 Sat by Pulse 100 100 Oximetry 02/20/17 08:51 Temperature Pulse Rate Respiratory Rate Blood Pressure (mmHg) O2 Sat by Pulse 98 Oximetry Oxygen Devices in Use Now: None Appearance: 71 yo f in NAd, aAAOx3, pooor shport term memory Eyes: No Scleral Icterus, PERRLA Ears/Nose/Mouth/Throat: NL Teeth, Lips, Gums, Mucous Membranes Moist Neck: NL Appearance and Movements; NL JVP Respiratory: Symmetrical Chest Expansion and Respiratory Effort, Clear to Auscultation Cardiovascular: NL Sounds; No Murmurs; No JVD, RRR Abdominal: NL Sounds; No Tenderness; No Distention, - - obese, soft, NT Lymphatic: No Cervical Adenopathy Extremities: No Clubbing, Cyanosis, - - +2 pedal and calf edema b/l Skin: No Nodules or Sclerosis, - - ecchymoses on b/l calfs R>L, ecchymses on bad -suspect due to sc heparin Neurological: Alert and Oriented x 3, NL Muscle Strength and Tone Result Diagrams: 02/20/17 11:08 02/20/17 11:08 Additional Lab and Data: Lab Results 02/15/17 02/15/17 02/15/17 Range/Units 13:53 13:53 13:53 WBC 8.1 (3.5-10.8) 10^3/ul RBC 3.74 L (4.0-5.4) 10^6/ul Hgb 10.9 L (12.0-16.0) g/dl Hct 34 L (35-47) % MCV 91 (80-97) fL MCH 29 (27-31) pg MCHC 32 (31-36) g/dl RDW 15 (10.5-15) % Plt Count 252 (150-450) 10^3/ul MPV 7 L (7.4-10.4) um3 Neut % (Auto) 83.7 H (38-83) % Lymph % (Auto) 5.9 L (25-47) % Franklin % (Auto) 8.5 (1-9) % Eos % (Auto) 1.1 (0-6) % Baso % (Auto) 0.8 (0-2) % Absolute Neuts (auto) 6.8 (1.5-7.7) 10^3/ul Absolute Lymphs (auto) 0.5 L (1.0-4.8) 10^3/ul Absolute Monos (auto) 0.7 (0-0.8) 10^3/ul Absolute Eos (auto) 0.1 (0-0.6) 10^3/ul Absolute Basos (auto) 0.1 (0-0.2) 10^3/ul Absolute Nucleated RBC 0 10^3/ul Nucleated RBC % 0 Sodium 131 L (133-145) mmol/L Potassium 5.5 H (3.5-5.0) mmol/L Chloride 101 (101-111) mmol/L Carbon Dioxide 23 (22-32) mmol/L Anion Gap 7 (2-11) mmol/L BUN 53 H (6-24) mg/dL Creatinine 2.60 H (0.51-0.95) mg/dL Est GFR ( Amer) 23.2 (>60) Est GFR (Non-Af Amer) 18.0 (>60) BUN/Creatinine Ratio 20.4 H (8-20) Glucose 157 H (70-100) mg/dL POC Glucose (mg/dL) (74-106) mg/dL Lactic Acid 1.1 (0.5-2.0) mmol/L Calcium 9.3 (8.6-10.3) mg/dL Magnesium 1.9 (1.9-2.7) mg/dL Total Bilirubin 0.40 (0.2-1.0) mg/dL AST 15 (13-39) U/L ALT 10 (7-52) U/L Alkaline Phosphatase 85 (34-104) U/L Troponin I 0.01 (<0.04) ng/mL Total Protein 6.6 (6.4-8.9) g/dL Albumin 3.2 (3.2-5.2) g/dL Globulin 3.4 (2-4) g/dL Albumin/Globulin Ratio 0.9 L (1-3) TSH 2.39 (0.34-5.60) mcIU/mL Urine Color Urine Appearance Urine pH (5-9) Ur Specific Sparks (1.010-1.030) Urine Protein (Negative) Urine Ketones (Negative) Urine Blood (Negative) Urine Nitrate (Negative) Urine Bilirubin (Negative) Urine Urobilinogen (Negative) Ur Leukocyte Esterase (Negative) Urine WBC (Auto) (Absent) Urine RBC (Auto) (Absent) Ur Squamous Epith Cells (Absent) Ur Transition Epith Cell (Absent) Urine Bacteria (Absent) Hyaline Casts (Absent) Urine Glucose (Negative) 02/15/17 02/15/17 02/15/17 Range/Units 15:35 17:48 22:18 WBC (3.5-10.8) 10^3/ul RBC (4.0-5.4) 10^6/ul Hgb (12.0-16.0) g/dl Hct (35-47) % MCV (80-97) fL MCH (27-31) pg MCHC (31-36) g/dl RDW (10.5-15) % Plt Count (150-450) 10^3/ul MPV (7.4-10.4) um3 Neut % (Auto) (38-83) % Lymph % (Auto) (25-47) % Franklin % (Auto) (1-9) % Eos % (Auto) (0-6) % Baso % (Auto) (0-2) % Absolute Neuts (auto) (1.5-7.7) 10^3/ul Absolute Lymphs (auto) (1.0-4.8) 10^3/ul Absolute Monos (auto) (0-0.8) 10^3/ul Absolute Eos (auto) (0-0.6) 10^3/ul Absolute Basos (auto) (0-0.2) 10^3/ul Absolute Nucleated RBC 10^3/ul Nucleated RBC % Sodium (133-145) mmol/L Potassium (3.5-5.0) mmol/L Chloride (101-111) mmol/L Carbon Dioxide (22-32) mmol/L Anion Gap (2-11) mmol/L BUN (6-24) mg/dL Creatinine (0.51-0.95) mg/dL Est GFR ( Amer) (>60) Est GFR (Non-Af Amer) (>60) BUN/Creatinine Ratio (8-20) Glucose (70-100) mg/dL POC Glucose (mg/dL) 93 90 (74-106) mg/dL Lactic Acid (0.5-2.0) mmol/L Calcium (8.6-10.3) mg/dL Magnesium (1.9-2.7) mg/dL Total Bilirubin (0.2-1.0) mg/dL AST (13-39) U/L ALT (7-52) U/L Alkaline Phosphatase (34-104) U/L Troponin I (<0.04) ng/mL Total Protein (6.4-8.9) g/dL Albumin (3.2-5.2) g/dL Globulin (2-4) g/dL Albumin/Globulin Ratio (1-3) TSH (0.34-5.60) mcIU/mL Urine Color Yellow Urine Appearance Cloudy Urine pH 5.0 (5-9) Ur Specific Sparks 1.006 L (1.010-1.030) Urine Protein Negative (Negative) Urine Ketones Negative (Negative) Urine Blood 2+ H (Negative) Urine Nitrate Negative (Negative) Urine Bilirubin Negative (Negative) Urine Urobilinogen Negative (Negative) Ur Leukocyte Esterase 3+ H (Negative) Urine WBC (Auto) 2+(11-20/hpf) H (Absent) Urine RBC (Auto) 2+(6-10/hpf) H (Absent) Ur Squamous Epith Cells Present H (Absent) Ur Transition Epith Cell Present H (Absent) Urine Bacteria 1+ H (Absent) Hyaline Casts Present H (Absent) Urine Glucose Negative (Negative) 02/16/17 02/16/17 02/16/17 Range/Units 06:36 07:52 07:57 WBC (3.5-10.8) 10^3/ul RBC (4.0-5.4) 10^6/ul Hgb (12.0-16.0) g/dl Hct (35-47) % MCV (80-97) fL MCH (27-31) pg MCHC (31-36) g/dl RDW (10.5-15) % Plt Count (150-450) 10^3/ul MPV (7.4-10.4) um3 Neut % (Auto) (38-83) % Lymph % (Auto) (25-47) % Franklin % (Auto) (1-9) % Eos % (Auto) (0-6) % Baso % (Auto) (0-2) % Absolute Neuts (auto) (1.5-7.7) 10^3/ul Absolute Lymphs (auto) (1.0-4.8) 10^3/ul Absolute Monos (auto) (0-0.8) 10^3/ul Absolute Eos (auto) (0-0.6) 10^3/ul Absolute Basos (auto) (0-0.2) 10^3/ul Absolute Nucleated RBC 10^3/ul Nucleated RBC % Sodium 130 L (133-145) mmol/L Potassium 5.0 (3.5-5.0) mmol/L Chloride 108 (101-111) mmol/L Carbon Dioxide 22 (22-32) mmol/L Anion Gap (2-11) mmol/L BUN 55 H (6-24) mg/dL Creatinine 2.46 H (0.51-0.95) mg/dL Est GFR ( Amer) 24.7 (>60) Est GFR (Non-Af Amer) 19.2 (>60) BUN/Creatinine Ratio 22.4 H (8-20) Glucose 55 L (70-100) mg/dL POC Glucose (mg/dL) 43 L 63 L (74-106) mg/dL Lactic Acid (0.5-2.0) mmol/L Calcium 8.8 (8.6-10.3) mg/dL Magnesium (1.9-2.7) mg/dL Total Bilirubin (0.2-1.0) mg/dL AST (13-39) U/L ALT (7-52) U/L Alkaline Phosphatase (34-104) U/L Troponin I (<0.04) ng/mL Total Protein (6.4-8.9) g/dL Albumin (3.2-5.2) g/dL Globulin (2-4) g/dL Albumin/Globulin Ratio (1-3) TSH (0.34-5.60) mcIU/mL Urine Color Urine Appearance Urine pH (5-9) Ur Specific Sparks (1.010-1.030) Urine Protein (Negative) Urine Ketones (Negative) Urine Blood (Negative) Urine Nitrate (Negative) Urine Bilirubin (Negative) Urine Urobilinogen (Negative) Ur Leukocyte Esterase (Negative) Urine WBC (Auto) (Absent) Urine RBC (Auto) (Absent) Ur Squamous Epith Cells (Absent) Ur Transition Epith Cell (Absent) Urine Bacteria (Absent) Hyaline Casts (Absent) Urine Glucose (Negative) Microbiology and Other Data: Microbiology 02/15/17 18:30 Nasal Screen MRSA (PCR)(MARNIE) - Final Nasal Mrsa Negative Assess/Plan/Problems-Billing Assessment: 71 yo F admitted with acute on chronic renal failure, h/o diarrhea for several weeks, chronic leg edema on diuretic at home. - Patient Problems (1) Atrial flutter Comment: Continue metoprolol. today in regular rhythm Lovenox held due to rectal bleeding (2) Lower GI bleeding Comment: Hb stable. Dr. Green consulted. Pt c/o no abd pain today. will advance diet. Holding lovenox. [employer]EL[employer]CH[employer] consult appreciated. suspect bleeding is rectal, not vaginal, but CT abd pelvis shows LLQ mass at 7 cm and possible omental caking. Will ask oncology to see pt. (3) Abdominal mass, left lower quadrant Comment: CT reviewed with Dr. Gentile from radiology. Likely LLQ mass amenable to bx. will d/w IR. (4) Diabetes Comment: Off all hypoglycemics. Fasting FS glucose 117-120's. (5) CKD (chronic kidney disease) Comment: baseline creat 1.3-1.6 now at 2.6. Pt used to be on diuretics as outpatient. May need to be placed back on them . For now will check FeNa, hold ibuprofen cont Kayexalate for hyperkalemia (6) Chronic diarrhea Comment: Pt reports her normal is 2-3 BM per day. Low lactose diet ordered. pt's concerned about pt uable to hold her bowels when getting pout of showetr. Had been ongoing x 4 months. Suspect bowel incontinence more problematic than the frequency of BM's. Will monitor.check fecal lactoferrin and stool cx (7) Difficulty walking Comment: She gives back pain as the reason. I think she also lacks motivation to walk. cont PT. Pt will need STR. (8) Morbid obesity Comment: BMI 47.1. (9) UTI due to extended-spectrum beta lactamase (ESBL) producing Escherichia coli Comment: started on Zosyn on 02/20/17 (10) DVT prophylaxis Comment: heparin sc Status and Disposition: inpatient
[2017-02-20 11:16] LABS: Hematocrit 30 % (35-47); Hemoglobin 9.5 g/dl (12.0-16.0); Mean Corpuscular HGB Conc 32 g/dl (31-36); Mean Corpuscular Hemoglobin 30 pg (27-31); Mean Corpuscular Volume 94 fL (80-97); Mean Platelet Volume 8 um3 (7.4-10.4); Red Blood Count 3.15 10^6/ul (4.0-5.4); Red Cell Distribution Width 15 % (10.5-15); White Blood Count 6.2 10^3/ul (3.5-10.8)
[2017-02-20 11:30] LABS: EGFR African American 21.2 (>60); EGFR Non-African American 16.5 (>60)
[2017-02-20 13:11] LABS: Carcinoembryonic Antigen 0.1 ng/mL (0.1-5.0)
[2017-02-20] MEDS ORDERED: Heparin VIAL(*) 5000 UNITS/ML VIAL (FIVE THOUSAND) SUBCUT SCH (14:00)
[2017-02-20] MEDS: ZOSYN 3.375 GM Q8H per EXTENDED INFUSION IVPB SCH ×4 (14:03→23:51)
[2017-02-20] MEDS: Loperamide CAP* 2 MG PO PRN (14:56)
[2017-02-20] MEDS ORDERED: Loperamide CAP* 2 MG PO PRN (16:54)
[2017-02-20] MEDS: oxyCODONE TAB* 5 MG TAB PO PRN (16:55)
[2017-02-20] MEDS: Atorvastatin* 10 MG TAB PO SCH (17:06)
[2017-02-20] MEDS: Gabapentin CAP(*) 100 MG PO SCH (23:55)
[2017-02-20] MEDS: Heparin VIAL(*) 5000 UNITS/ML VIAL (FIVE THOUSAND) SUBCUT SCH (23:56)
[2017-02-21] MEDS: Zinc Oxide 40% (TOPICAL)* TUBE TOPICAL SCH ×4 (00:18→21:13)
[2017-02-21] MEDS: ZOSYN 3.375 GM Q8H per EXTENDED INFUSION IVPB SCH ×6 (05:45→21:13)
[2017-02-21] MEDS: Heparin VIAL(*) 5000 UNITS/ML VIAL (FIVE THOUSAND) SUBCUT SCH ×3 (06:23→21:30)
[2017-02-21 07:02] LABS: Hematocrit 29 % (35-47); Hemoglobin 9.1 g/dl (12.0-16.0); Mean Corpuscular HGB Conc 32 g/dl (31-36); Mean Corpuscular Hemoglobin 30 pg (27-31); Mean Corpuscular Volume 95 fL (80-97); Mean Platelet Volume 8 um3 (7.4-10.4); Red Blood Count 3.03 10^6/ul (4.0-5.4); Red Cell Distribution Width 16 % (10.5-15); White Blood Count 6.3 10^3/ul (3.5-10.8)
[2017-02-21 07:03] LABS: Add Diff/Slide Review? Slide Review Added; Comments Flag Yes
[2017-02-21 07:27] LABS: Carcinoembryonic Antigen 0.2 ng/mL (0.1-5.0)
--- NOTE | 2017-02-21 07:50 | CONS ---
MEDICAL ONCOLOGY CONSULTATION NOTE: DATE OF ADMISSION: 02/16/17. DATE OF CONSULT: 02/20/17. REASON FOR CONSULTATION: Suspicious for metastatic carcinoma of abdominal origin. HISTORY OF PRESENT ILLNESS: Ms. Jean is a 71-year-old female who had multiple trips to the [facility] Emergency Room since October with what her describes as multiple urinary tract infections requiring antibiotics on an almost weekly basis. She then had a worst episode where she was admitted to [facility] on February 04. At that time, she had fallen and did not have a fever or significant cough, but was apparently felt to have a community acquired pneumonia. She was hospitalized for just under a week and then discharged to a rehab unit. She remained there for approximately 1 week's time. Her reports that she was discharged to home, but at the time of discharge was so weak that it took multiple people to try to get her out of the rehab to the van. Multiple people tried to get her out of the van at home were unable to do so and her then brought her to [facility] Emergency Room. She was noted to have elevated renal functions while at [facility] with a creatinine in the 2 to 3 range. She has been having chronic diarrhea, several loose stools every day for the past several months. In the emergency room at [facility], she was found to have an elevated potassium of 5.9, BUN and creatinine of 53/2.6. She is a known diabetic and has had her diabetic medications held because of low glucoses when at [place]. Since admission here, she has had a workup that has included a CT scan of the abdomen and pelvis on 02/19/17, which revealed multiple abdominal masses; the largest appears to an area of adenopathy measuring 10 x 7 cm in the left lower quadrant. Multiple other masses are notable as well up to 4 cm. There was also an adrenal mass measuring 2.4 x 2.5 cm. There was stranding of the mesentry and likely omental caking. One of the masses is in the area of the left adnexa. There is a small amount of ascites present along with a porcelain gallbladder. The patient was seen in consultation by Dr. Fontanez with Gynecology and due to her obese status and being in bed, pelvic exam was unable to palpate any significant masses. Pelvic ultrasound obtained on the same day as the CAT scan was limited without visualization of the uterus or visualization of the ovaries. The patient was noted to have blood in her stool. There is a question whether there could also be vaginal blood, although this was, as I said above, questionable. PAST MEDICAL HISTORY: Diabetes mellitus, history of atrial fibrillation, history of recurrent urinary tract infections this year, history of hypertension. PAST SURGICAL HISTORY: She is status post pacemaker insertion, status post total knee replacement. MEDICATIONS AT THE TIME OF ADMISSION: Included; 1. MiraLAX. 2. Imodium. 3. Acidophilus. 4. Simvastatin. 5. Hydrochlorothiazide. 6. Metoprolol. 7. Xarelto. 8. Ferrous sulfate. 9. Carafate. 10. Protonix. 11. Gabapentin. ALLERGIES: DARVON. FAMILY HISTORY: Mother at age 60 of diabetes. Father at 57 of a CVA. Brother of sudden at 55. She has 3 children in good health living in [place], [place], and [place] respectively. There was no family history of any malignancies. SOCIAL HISTORY: The patient is a former smoker, quitting many years ago. No significant alcohol or drug use. She previously has worked at [employer]. She lives with her . The patient is quite lethargic during the interview and most of the information is obtained from her . PHYSICAL EXAMINATION: A 71-year-old female in no acute distress. Vitals signs are stable. Afebrile. HEENT: PERRLA, EOMI. No erythema or exudates. No palpable cervical, supraclavicular, or axillary adenopathy, although the exam was difficult due to obesity. Lungs: Clear. Heart: Regular rate and rhythm without murmurs, rubs, or gallops. Abdomen: Very obese without masses or organomegaly noted. Bowel sounds are present. Extremities: 2+ pitting edema bilaterally. Back: No CVA or spinal tenderness. Neurologic exam is grossly intact. LABORATORY STUDIES: Elevated creatinine, but otherwise relatively normal chemistry profile and CBC with a white count of 6200, hematocrit 30, hemoglobin 9.5, platelet count 226,000. CA-125 obtained on the day of this consultation is 687. LFTs are normal. IMPRESSION: Strong suspicion for abdominal or pelvic malignancy, potentially primary ovarian or primary peritoneal carcinoma. It has been arranged for the patient to have a CT or ultrasound guided biopsy of one of the abdominal masses. Once pathology is available from this, situation would be discussed further with the patient and her family. If it is an ovarian or primary peritoneal carcinoma, standard therapy would to be start with surgery to include ZENA-BSO, lumpectomy, lymph node dissection, but given her current medical condition and her obesity, it may be that the initial step would instead be neoadjuvant chemotherapy and then if improvement consideration of surgery afterwards. This will be need to be discussed with [facility]IST Oncology. Closest [facility] Oncology would be either in [place] or [place]; although [place] is closer, she does have family in [place] and this may be the most appropriate site if necessary. Further recommendations to follow once pathology is obtained. [id number]/[facility] #: [id number] FREYA
--- NOTE | 2017-02-21 08:12 | RAD ---
INDICATION: To further characterize a peritoneal mass for biopsy planning COMPARISON: CT abdomen pelvis dated February 19, 2017 TECHNIQUE: Real time ultrasound images of the left of midline peritoneal cavity were acquired with powers scale and Doppler color flow imaging. FINDINGS: Sonographic findings reveal a heterogeneous mildly vascular mass measuring 10.3 x 8.2 x 10.9 cm that corresponds to recent CT imaging. There do not appear to be any overlying bowel loops between the skin surface at the mass. IMPRESSION: Left of midline peritoneal mass as described above with sonographic appearance indicating compatibility with percutaneous biopsy.
[2017-02-21] MEDS: Polyethylene Glycol 3350* 17 GM PACKET PO SCH (08:26)
[2017-02-21] MEDS: Lactobacillus Acidophilu (GG)* 1 CAP CAP PO SCH ×2 (08:26→21:04)
[2017-02-21] MEDS: Acetaminophen TAB* 325 MG PO SCH ×4 (08:27→21:04)
[2017-02-21] MEDS: Metoprolol Succinate XL TAB* 100 MG PO SCH (08:27)
[2017-02-21] MEDS: Sucralfate TAB* 1 GM PO SCH (08:27)
[2017-02-21] MEDS: Omeprazole CAP* 20 MG PO SCH (09:19)
[2017-02-21 10:09] LABS: BUN/Creatinine Ratio 21.3 (8-20); Calcium 8.6 mg/dL (8.6-10.3); Potassium 5.5 mmol/L (3.5-5.0)
[2017-02-21] MEDS ORDERED: NS 0.9% 1000 ML* 1,000 ML IV SCH (10:15)
[2017-02-21] MEDS: oxyCODONE TAB* 5 MG TAB PO PRN (10:42)
[2017-02-21] MEDS ORDERED: NS 0.9% 1000 ML* 1,000 ML IV ONE (10:45)
[2017-02-21] MEDS ORDERED: Sucralfate SUSP 1 GM/10 ml 10 ML UDC PO SCH (11:30)
--- NOTE | 2017-02-21 14:38 | PN ---
Subjective Date of Service: 02/21/17 Interval History: patient ate breakfast and then started experiencing epigastric pain.No BM since Immodium x 1 dose yesterday. Could not urinate and after Aguilar was inserted 100 ml of concentrated urine was obtained Objective Active Medications: Acetaminophen (Tylenol Tab*) 650 mg PO Q4H PRN PRN Reason: PAIN/INFLAMMATION Last Admin: 02/17/17 02:49 Dose: 650 mg Acetaminophen (Tylenol Tab*) 650 mg PO QID [facility] Last Admin: 02/21/17 11:52 Dose: Not Given Atorvastatin Calcium (Lipitor*) 10 mg PO QPM [facility] Last Admin: 02/20/17 17:06 Dose: 10 mg Benzonatate (Tessalon Cap*) 200 mg PO TID PRN PRN Reason: COUGH Dextrose (D50w Syringe 50 Ml*) 12.5 gm IV PUSH .FOR FS < 60 - SS PRN PRN Reason: FS < 60 Gabapentin (Neurontin Cap(*)) 100 mg PO BEDTIME [facility] Last Admin: 02/20/17 23:55 Dose: 100 mg Heparin Sodium (Porcine) (Heparin Vial(*)) 5,000 units SUBCUT Q8HR [facility] Last Admin: 02/21/17 06:23 Dose: 5,000 units Piperacillin Sod/Tazobactam (Sod 3.375 gm/ Sodium Chloride) 100 mls @ 25 mls/ hr IVPB Q8H [facility] Last Admin: 02/21/17 13:04 Dose: 25 mls/hr Lactobacillus Rhamnosus (Culturelle*) 1 cap PO BID [facility] Last Admin: 02/21/17 08:26 Dose: 1 cap Metoprolol Succinate (Toprol Xl Tab*) 100 mg PO DAILY [facility] Last Admin: 02/21/17 08:27 Dose: 100 mg Omeprazole (Prilosec Cap*) 20 mg PO DAILY [facility] Last Admin: 02/21/17 09:19 Dose: 20 mg Oxycodone HCl (Roxycodone Tab*) 5 mg PO Q4H PRN PRN Reason: PAIN Last Admin: 02/21/17 10:42 Dose: 5 mg Pharmacy Consult (Zosyn Per Pharmacy*) 1 note FOLLOW UP .ZOSYN PER PHARMACY [facility] Polyethylene Glycol/Electrolytes (Miralax*) 17 gm PO DAILY [facility] Last Admin: 02/21/17 08:26 Dose: 17 gm Sodium Polystyrene Sulfonate (Kayexalate Oral.Yamila*) 15 gm PO TuSa@0900 [facility] Last Admin: 02/19/17 11:09 Dose: 15 gm Sucralfate (Sucralfate Susp) 1 gm PO 0600,1100,1600,2100 [facility] Zinc Oxide (Zinc Oxide 40% (Topical)*) 1 applic TOPICAL TID [facility] Last Admin: 02/21/17 08:33 Dose: 1 applic Vital Signs 02/20/17 02/20/17 02/20/17 14:56 16:37 16:47 Temperature Pulse Rate 75 Respiratory 18 16 18 Rate Blood Pressure 131/58 (mmHg) O2 Sat by Pulse 99 Oximetry 02/20/17 02/20/17 02/20/17 16:55 18:36 20:00 Temperature Pulse Rate Respiratory 18 16 20 Rate Blood Pressure (mmHg) O2 Sat by Pulse Oximetry 02/20/17 02/20/17 02/20/17 20:57 23:37 23:55 Temperature 98.3 F 97.4 F Pulse Rate 75 75 Respiratory 12 16 16 Rate Blood Pressure 120/56 123/43 (mmHg) O2 Sat by Pulse 98 98 Oximetry 02/21/17 02/21/17 02/21/17 01:55 03:45 07:52 Temperature 98.1 F Pulse Rate 76 75 Respiratory 20 18 18 Rate Blood Pressure 116/54 125/43 (mmHg) O2 Sat by Pulse 98 98 Oximetry 02/21/17 02/21/17 02/21/17 08:00 08:47 10:42 Temperature Pulse Rate Respiratory 18 18 Rate Blood Pressure (mmHg) O2 Sat by Pulse 98 Oximetry 02/21/17 02/21/17 12:36 14:23 Temperature 98.0 F Pulse Rate 75 Respiratory 20 20 Rate Blood Pressure 126/49 (mmHg) O2 Sat by Pulse 100 Oximetry Oxygen Devices in Use Now: None Appearance: 71 yo f in nAD, aAOx2, poor historian Eyes: No Scleral Icterus, PERRLA Ears/Nose/Mouth/Throat: NL Teeth, Lips, Gums, Mucous Membranes Moist Neck: NL Appearance and Movements; NL JVP, Trachea Midline Respiratory: Symmetrical Chest Expansion and Respiratory Effort, Clear to Auscultation Cardiovascular: NL Sounds; No Murmurs; No JVD, RRR Abdominal: - - mild epigastric tenderness, no rebound, no guarding, BS+ Lymphatic: No Cervical Adenopathy Extremities: No Clubbing, Cyanosis, - - B/l pedal edema +1 Skin: No Nodules or Sclerosis, - - ecchymoses on posterior b/l calves Neurological: NL Muscle Strength and Tone Result Diagrams: 02/21/17 06:45 02/21/17 06:45 Additional Lab and Data: Lab Results 02/15/17 02/15/17 02/15/17 Range/Units 13:53 13:53 13:53 WBC 8.1 (3.5-10.8) 10^3/ul RBC 3.74 L (4.0-5.4) 10^6/ul Hgb 10.9 L (12.0-16.0) g/dl Hct 34 L (35-47) % MCV 91 (80-97) fL MCH 29 (27-31) pg MCHC 32 (31-36) g/dl RDW 15 (10.5-15) % Plt Count 252 (150-450) 10^3/ul MPV 7 L (7.4-10.4) um3 Neut % (Auto) 83.7 H (38-83) % Lymph % (Auto) 5.9 L (25-47) % [place] % (Auto) 8.5 (1-9) % Eos % (Auto) 1.1 (0-6) % Baso % (Auto) 0.8 (0-2) % Absolute Neuts (auto) 6.8 (1.5-7.7) 10^3/ul Absolute Lymphs (auto) 0.5 L (1.0-4.8) 10^3/ul Absolute Monos (auto) 0.7 (0-0.8) 10^3/ul Absolute Eos (auto) 0.1 (0-0.6) 10^3/ul Absolute Basos (auto) 0.1 (0-0.2) 10^3/ul Absolute Nucleated RBC 0 10^3/ul Nucleated RBC % 0 Sodium 131 L (133-145) mmol/L Potassium 5.5 H (3.5-5.0) mmol/L Chloride 101 (101-111) mmol/L Carbon Dioxide 23 (22-32) mmol/L Anion Gap 7 (2-11) mmol/L BUN 53 H (6-24) mg/dL Creatinine 2.60 H (0.51-0.95) mg/dL Est GFR ( Amer) 23.2 (>60) Est GFR (Non-Af Amer) 18.0 (>60) BUN/Creatinine Ratio 20.4 H (8-20) Glucose 157 H (70-100) mg/dL POC Glucose (mg/dL) (74-106) mg/dL Lactic Acid 1.1 (0.5-2.0) mmol/L Calcium 9.3 (8.6-10.3) mg/dL Magnesium 1.9 (1.9-2.7) mg/dL Total Bilirubin 0.40 (0.2-1.0) mg/dL AST 15 (13-39) U/L ALT 10 (7-52) U/L Alkaline Phosphatase 85 (34-104) U/L Troponin I 0.01 (<0.04) ng/mL Total Protein 6.6 (6.4-8.9) g/dL Albumin 3.2 (3.2-5.2) g/dL Globulin 3.4 (2-4) g/dL Albumin/Globulin Ratio 0.9 L (1-3) TSH 2.39 (0.34-5.60) mcIU/mL Urine Color Urine Appearance Urine pH (5-9) Ur Specific [place] (1.010-1.030) Urine Protein (Negative) Urine Ketones (Negative) Urine Blood (Negative) Urine Nitrate (Negative) Urine Bilirubin (Negative) Urine Urobilinogen (Negative) Ur Leukocyte Esterase (Negative) Urine WBC (Auto) (Absent) Urine RBC (Auto) (Absent) Ur Squamous Epith Cells (Absent) Ur Transition Epith Cell (Absent) Urine Bacteria (Absent) Hyaline Casts (Absent) Urine Glucose (Negative) 02/15/17 02/15/17 02/15/17 Range/Units 15:35 17:48 22:18 WBC (3.5-10.8) 10^3/ul RBC (4.0-5.4) 10^6/ul Hgb (12.0-16.0) g/dl Hct (35-47) % MCV (80-97) fL MCH (27-31) pg MCHC (31-36) g/dl RDW (10.5-15) % Plt Count (150-450) 10^3/ul MPV (7.4-10.4) um3 Neut % (Auto) (38-83) % Lymph % (Auto) (25-47) % [place] % (Auto) (1-9) % Eos % (Auto) (0-6) % Baso % (Auto) (0-2) % Absolute Neuts (auto) (1.5-7.7) 10^3/ul Absolute Lymphs (auto) (1.0-4.8) 10^3/ul Absolute Monos (auto) (0-0.8) 10^3/ul Absolute Eos (auto) (0-0.6) 10^3/ul Absolute Basos (auto) (0-0.2) 10^3/ul Absolute Nucleated RBC 10^3/ul Nucleated RBC % Sodium (133-145) mmol/L Potassium (3.5-5.0) mmol/L Chloride (101-111) mmol/L Carbon Dioxide (22-32) mmol/L Anion Gap (2-11) mmol/L BUN (6-24) mg/dL Creatinine (0.51-0.95) mg/dL Est GFR ( Amer) (>60) Est GFR (Non-Af Amer) (>60) BUN/Creatinine Ratio (8-20) Glucose (70-100) mg/dL POC Glucose (mg/dL) 93 90 (74-106) mg/dL Lactic Acid (0.5-2.0) mmol/L Calcium (8.6-10.3) mg/dL Magnesium (1.9-2.7) mg/dL Total Bilirubin (0.2-1.0) mg/dL AST (13-39) U/L ALT (7-52) U/L Alkaline Phosphatase (34-104) U/L Troponin I (<0.04) ng/mL Total Protein (6.4-8.9) g/dL Albumin (3.2-5.2) g/dL Globulin (2-4) g/dL Albumin/Globulin Ratio (1-3) TSH (0.34-5.60) mcIU/mL Urine Color Yellow Urine Appearance Cloudy Urine pH 5.0 (5-9) Ur Specific [place] 1.006 L (1.010-1.030) Urine Protein Negative (Negative) Urine Ketones Negative (Negative) Urine Blood 2+ H (Negative) Urine Nitrate Negative (Negative) Urine Bilirubin Negative (Negative) Urine Urobilinogen Negative (Negative) Ur Leukocyte Esterase 3+ H (Negative) Urine WBC (Auto) 2+(11-20/hpf) H (Absent) Urine RBC (Auto) 2+(6-10/hpf) H (Absent) Ur Squamous Epith Cells Present H (Absent) Ur Transition Epith Cell Present H (Absent) Urine Bacteria 1+ H (Absent) Hyaline Casts Present H (Absent) Urine Glucose Negative (Negative) 02/16/17 02/16/17 02/16/17 Range/Units 06:36 07:52 07:57 WBC (3.5-10.8) 10^3/ul RBC (4.0-5.4) 10^6/ul Hgb (12.0-16.0) g/dl Hct (35-47) % MCV (80-97) fL MCH (27-31) pg MCHC (31-36) g/dl RDW (10.5-15) % Plt Count (150-450) 10^3/ul MPV (7.4-10.4) um3 Neut % (Auto) (38-83) % Lymph % (Auto) (25-47) % [place] % (Auto) (1-9) % Eos % (Auto) (0-6) % Baso % (Auto) (0-2) % Absolute Neuts (auto) (1.5-7.7) 10^3/ul Absolute Lymphs (auto) (1.0-4.8) 10^3/ul Absolute Monos (auto) (0-0.8) 10^3/ul Absolute Eos (auto) (0-0.6) 10^3/ul Absolute Basos (auto) (0-0.2) 10^3/ul Absolute Nucleated RBC 10^3/ul Nucleated RBC % Sodium 130 L (133-145) mmol/L Potassium 5.0 (3.5-5.0) mmol/L Chloride 108 (101-111) mmol/L Carbon Dioxide 22 (22-32) mmol/L Anion Gap (2-11) mmol/L BUN 55 H (6-24) mg/dL Creatinine 2.46 H (0.51-0.95) mg/dL Est GFR ( Amer) 24.7 (>60) Est GFR (Non-Af Amer) 19.2 (>60) BUN/Creatinine Ratio 22.4 H (8-20) Glucose 55 L (70-100) mg/dL POC Glucose (mg/dL) 43 L 63 L (74-106) mg/dL Lactic Acid (0.5-2.0) mmol/L Calcium 8.8 (8.6-10.3) mg/dL Magnesium (1.9-2.7) mg/dL Total Bilirubin (0.2-1.0) mg/dL AST (13-39) U/L ALT (7-52) U/L Alkaline Phosphatase (34-104) U/L Troponin I (<0.04) ng/mL Total Protein (6.4-8.9) g/dL Albumin (3.2-5.2) g/dL Globulin (2-4) g/dL Albumin/Globulin Ratio (1-3) TSH (0.34-5.60) mcIU/mL Urine Color Urine Appearance Urine pH (5-9) Ur Specific [place] (1.010-1.030) Urine Protein (Negative) Urine Ketones (Negative) Urine Blood (Negative) Urine Nitrate (Negative) Urine Bilirubin (Negative) Urine Urobilinogen (Negative) Ur Leukocyte Esterase (Negative) Urine WBC (Auto) (Absent) Urine RBC (Auto) (Absent) Ur Squamous Epith Cells (Absent) Ur Transition Epith Cell (Absent) Urine Bacteria (Absent) Hyaline Casts (Absent) Urine Glucose (Negative) Microbiology and Other Data: Microbiology 02/15/17 18:30 Nasal Screen MRSA (PCR)(MARNIE) - Final Nasal Mrsa Negative Assess/Plan/Problems-Billing Assessment: 71 yo F admitted with acute on chronic renal failure, h/o diarrhea for several weeks, chronic leg edema on diuretic at home. - Patient Problems (1) Atrial flutter Comment: Continue metoprolol. today in regular rhythm anticoagulation held due to rectal bleeding (2) Lower GI bleeding Comment: Hb stable. Dr. Green consulted. Pt c/o epgastic pain today, but no BM x 12 hrs. Will start simethicone, hold Immodium Holding lovenox. UNIT SECY consult appreciated. suspect bleeding is rectal, not vaginal. CT abd pelvis showed LLQ mass at 7 cm and possible omental caking. (3) Abdominal mass, left lower quadrant Comment: appreciate Dr. Grigsby's consult. CA125 antigen elevated. IR to do bx today. (4) Diabetes Comment: Off all hypoglycemics. Fasting FS glucose 117-120's. (5) CKD (chronic kidney disease) Comment: baseline creat 1.3-1.6 with acute reanl failure today. FeNa at 0.2 indicates prerenal state. Aguilar placed for u retention on 02/21/17. IVF started. cont Kayexalate for hyperkalemia (6) Chronic diarrhea Comment: Pt reports her normal is 2-3 BM per day. Low lactose diet ordered. pt's concerned about pt uable to hold her bowels when getting out of showetr. Had been ongoing x 4 months. Suspect bowel incontinence more problematic than the frequency of BM's. Will monitor. Checking fecal lactoferrin and stool cx (7) Difficulty walking Comment: cont PT. Pt will need STR. (8) Morbid obesity Comment: BMI 47.1. (9) UTI due to extended-spectrum beta lactamase (ESBL) producing Escherichia coli Comment: started on Zosyn on 02/20/17 (10) DVT prophylaxis Comment: heparin sc Status and Disposition: inpatient
[2017-02-21] MEDS ORDERED: Simethicone CHEW TAB* 80 MG PO PRN (14:42)
[2017-02-21] MEDS: Sucralfate SUSP 1 GM/10 ml 10 ML UDC PO SCH ×2 (16:12→21:03)
[2017-02-21] MEDS: Sodium Polystyrene ORAL.SOL* 15 GM/60 ML BTL PO SCH (16:12)
[2017-02-21] MEDS: Atorvastatin* 10 MG TAB PO SCH (17:08)
[2017-02-21] MEDS: Gabapentin CAP(*) 100 MG PO SCH (21:03)
[2017-02-22] MEDS: ZOSYN 3.375 GM Q8H per EXTENDED INFUSION IVPB SCH ×2 (04:55)
[2017-02-22 05:13] LABS: Hematocrit 28 % (35-47); Hemoglobin 8.8 g/dl (12.0-16.0); Mean Corpuscular HGB Conc 32 g/dl (31-36); Mean Corpuscular Hemoglobin 30 pg (27-31); Mean Corpuscular Volume 94 fL (80-97); Mean Platelet Volume 7 um3 (7.4-10.4); Red Blood Count 2.95 10^6/ul (4.0-5.4); Red Cell Distribution Width 16 % (10.5-15); White Blood Count 6.5 10^3/ul (3.5-10.8)
[2017-02-22 05:20] LABS: Add Diff/Slide Review? Slide Review Added; Comments Flag Yes
[2017-02-22] MEDS: Sucralfate SUSP 1 GM/10 ml 10 ML UDC PO SCH ×4 (05:31→22:16)
[2017-02-22] MEDS: Heparin VIAL(*) 5000 UNITS/ML VIAL (FIVE THOUSAND) SUBCUT SCH ×3 (05:34→22:16)
[2017-02-22 05:36] LABS: BUN/Creatinine Ratio 18.9 (8-20); Calcium 8.4 mg/dL (8.6-10.3); EGFR African American 14.9 (>60); EGFR Non-African American 11.6 (>60)
--- NOTE | 2017-02-22 07:53 | RAD ---
INDICATION: Abdominal mass COMPARISON: CT abdomen pelvis February 19, 2017 The benefits and risks of procedure explained to the patient and her and the patient's signed informed consent. Multiple images of the left of midline upper peritoneal cavity were obtained. The mass in question was identified and a percutaneous tract was determined. A time out was performed before beginning the procedure. The patient was prepped and draped in the usual sterile fashion. The skin and tissue overlying the peritoneal mass were anesthetized with 1% lidocaine. Percutaneously, a fine needle aspiration was obtained and provided to the attending cytopathologist. The cytopathologist indicated that preliminary evaluation demonstrated adequate sampling for diagnosis. According to the same technique as above additional fine-needle aspirations were acquired to assure adequate diagnostic volume. The post procedure ultrasound demonstrates no evidence for hematoma. The site was dressed with a sterile dressing. The patient tolerated procedure well without incident. IMPRESSION: Uncomplicated ultrasound-guided fine-needle aspiration of large left of midline peritoneal mass..
[2017-02-22] MEDS ORDERED: NS 0.9% 1000 ML* 1,000 ML IV SCH (08:45)
[2017-02-22] MEDS: Omeprazole CAP* 20 MG PO SCH (09:04)
[2017-02-22] MEDS: Metoprolol Succinate XL TAB* 100 MG PO SCH (09:04)
[2017-02-22] MEDS: Acetaminophen TAB* 325 MG PO SCH ×4 (09:05→22:15)
[2017-02-22] MEDS: Polyethylene Glycol 3350* 17 GM PACKET PO SCH (09:05)
[2017-02-22] MEDS: Lactobacillus Acidophilu (GG)* 1 CAP CAP PO SCH ×2 (09:05→22:15)
[2017-02-22] MEDS: Sodium Polystyrene ORAL.SOL* 15 GM/60 ML BTL PO SCH (09:05)
[2017-02-22] MEDS: Zinc Oxide 40% (TOPICAL)* TUBE TOPICAL SCH ×3 (09:06→23:05)
[2017-02-22] MEDS: oxyCODONE TAB* 5 MG TAB PO PRN (10:22)
--- NOTE | 2017-02-22 11:18 | PN ---
Subjective Date of Service: 02/22/17 Interval History: Pt c/o back pain, tries to rearrange her position in bed. as per d/w staff, pt had been refusing to get OOB to chair, although was able to ambulate to bathroom today. Had 2 loose BM's after Kayexalate this AM. Low UO, no appetite. Denies abd pain Objective Active Medications: Acetaminophen (Tylenol Tab*) 650 mg PO Q4H PRN PRN Reason: PAIN/INFLAMMATION Last Admin: 02/17/17 02:49 Dose: 650 mg Acetaminophen (Tylenol Tab*) 650 mg PO QID [facility] Last Admin: 02/22/17 09:05 Dose: 650 mg Atorvastatin Calcium (Lipitor*) 10 mg PO QPM [facility] Last Admin: 02/21/17 17:08 Dose: 10 mg Benzonatate (Tessalon Cap*) 200 mg PO TID PRN PRN Reason: COUGH Dextrose (D50w Syringe 50 Ml*) 12.5 gm IV PUSH .FOR FS < 60 - SS PRN PRN Reason: FS < 60 Gabapentin (Neurontin Cap(*)) 100 mg PO BEDTIME [facility] Last Admin: 02/21/17 21:03 Dose: 100 mg Heparin Sodium (Porcine) (Heparin Vial(*)) 5,000 units SUBCUT Q8HR [facility] Last Admin: 02/22/17 05:34 Dose: 5,000 units Piperacillin Sod/Tazobactam (Sod 3.375 gm/ Sodium Chloride) 100 mls @ 25 mls/ hr IVPB Q8H [facility] Last Admin: 02/22/17 04:55 Dose: 25 mls/hr Sodium Chloride (Ns 0.9% 1000 Ml*) 1,000 mls @ 75 mls/hr IV PER RATE [facility] Last Admin: 02/22/17 09:06 Dose: 75 mls/hr Lactobacillus Rhamnosus (Culturelle*) 1 cap PO BID [facility] Last Admin: 02/22/17 09:05 Dose: 1 cap Loperamide HCl (Imodium Liq*) 2 mg PO DAILY PRN PRN Reason: DIARRHEA Metoprolol Succinate (Toprol Xl Tab*) 100 mg PO DAILY [facility] Last Admin: 02/22/17 09:04 Dose: 100 mg Omeprazole (Prilosec Cap*) 20 mg PO DAILY [facility] Last Admin: 02/22/17 09:04 Dose: 20 mg Oxycodone HCl (Roxycodone Tab*) 5 mg PO Q4H PRN PRN Reason: PAIN Last Admin: 02/22/17 10:22 Dose: 5 mg Pharmacy Consult (Zosyn Per Pharmacy*) 1 note FOLLOW UP .ZOSYN PER PHARMACY [facility] Polyethylene Glycol/Electrolytes (Miralax*) 17 gm PO DAILY [facility] Last Admin: 02/22/17 09:05 Dose: 17 gm Simethicone (Mylicon*) 80 mg PO Q6H PRN PRN Reason: DISCOMFORT Sodium Polystyrene Sulfonate (Kayexalate Oral.Yamila*) 15 gm PO DAILY [facility] Last Admin: 02/22/17 09:05 Dose: 15 gm Sucralfate (Sucralfate Susp) 1 gm PO 0600,1100,1600,2100 [facility] Last Admin: 02/22/17 10:24 Dose: 1 gm Zinc Oxide (Zinc Oxide 40% (Topical)*) 1 applic TOPICAL TID [facility] Last Admin: 02/22/17 09:06 Dose: 1 applic Vital Signs 02/21/17 02/21/17 02/21/17 12:36 14:23 15:59 Temperature 98.0 F 97.8 F Pulse Rate 75 75 Respiratory 20 20 12 Rate Blood Pressure 126/49 127/53 (mmHg) O2 Sat by Pulse 100 98 Oximetry 02/21/17 02/21/17 02/21/17 19:44 20:17 21:03 Temperature 97.1 F Pulse Rate 74 Respiratory 16 12 12 Rate Blood Pressure 135/79 (mmHg) O2 Sat by Pulse 100 Oximetry 02/21/17 02/21/17 02/22/17 23:03 23:28 03:27 Temperature 98.1 F 97.5 F Pulse Rate 75 75 Respiratory 18 18 18 Rate Blood Pressure 129/43 131/47 (mmHg) O2 Sat by Pulse 97 98 Oximetry 02/22/17 02/22/17 08:01 10:22 Temperature Pulse Rate Respiratory 18 Rate Blood Pressure (mmHg) O2 Sat by Pulse 97 Oximetry Oxygen Devices in Use Now: None Appearance: 71 yo F in NAD, AAOx2 Eyes: No Scleral Icterus, PERRLA Ears/Nose/Mouth/Throat: NL Teeth, Lips, Gums, Mucous Membranes Moist Neck: NL Appearance and Movements; NL JVP, Trachea Midline Respiratory: Symmetrical Chest Expansion and Respiratory Effort, Clear to Auscultation Cardiovascular: RRR, - - 1/6 MELY at RUSB Abdominal: NL Sounds; No Tenderness; No Distention, No Hepatosplenomegaly Lymphatic: No Cervical Adenopathy Extremities: No Clubbing, Cyanosis, - - +2 distal LE edema Skin: No Nodules or Sclerosis, - - ecchymoses b/l calves Neurological: NL Muscle Strength and Tone - no focal motor deficit, generalized weakness, - Result Diagrams: 02/22/17 04:52 02/22/17 04:52 Additional Lab and Data: Lab Results 02/15/17 02/15/17 02/15/17 Range/Units 13:53 13:53 13:53 WBC 8.1 (3.5-10.8) 10^3/ul RBC 3.74 L (4.0-5.4) 10^6/ul Hgb 10.9 L (12.0-16.0) g/dl Hct 34 L (35-47) % MCV 91 (80-97) fL MCH 29 (27-31) pg MCHC 32 (31-36) g/dl RDW 15 (10.5-15) % Plt Count 252 (150-450) 10^3/ul MPV 7 L (7.4-10.4) um3 Neut % (Auto) 83.7 H (38-83) % Lymph % (Auto) 5.9 L (25-47) % [place] % (Auto) 8.5 (1-9) % Eos % (Auto) 1.1 (0-6) % Baso % (Auto) 0.8 (0-2) % Absolute Neuts (auto) 6.8 (1.5-7.7) 10^3/ul Absolute Lymphs (auto) 0.5 L (1.0-4.8) 10^3/ul Absolute Monos (auto) 0.7 (0-0.8) 10^3/ul Absolute Eos (auto) 0.1 (0-0.6) 10^3/ul Absolute Basos (auto) 0.1 (0-0.2) 10^3/ul Absolute Nucleated RBC 0 10^3/ul Nucleated RBC % 0 Sodium 131 L (133-145) mmol/L Potassium 5.5 H (3.5-5.0) mmol/L Chloride 101 (101-111) mmol/L Carbon Dioxide 23 (22-32) mmol/L Anion Gap 7 (2-11) mmol/L BUN 53 H (6-24) mg/dL Creatinine 2.60 H (0.51-0.95) mg/dL Est GFR ( Amer) 23.2 (>60) Est GFR (Non-Af Amer) 18.0 (>60) BUN/Creatinine Ratio 20.4 H (8-20) Glucose 157 H (70-100) mg/dL POC Glucose (mg/dL) (74-106) mg/dL Lactic Acid 1.1 (0.5-2.0) mmol/L Calcium 9.3 (8.6-10.3) mg/dL Magnesium 1.9 (1.9-2.7) mg/dL Total Bilirubin 0.40 (0.2-1.0) mg/dL AST 15 (13-39) U/L ALT 10 (7-52) U/L Alkaline Phosphatase 85 (34-104) U/L Troponin I 0.01 (<0.04) ng/mL Total Protein 6.6 (6.4-8.9) g/dL Albumin 3.2 (3.2-5.2) g/dL Globulin 3.4 (2-4) g/dL Albumin/Globulin Ratio 0.9 L (1-3) TSH 2.39 (0.34-5.60) mcIU/mL Urine Color Urine Appearance Urine pH (5-9) Ur Specific [place] (1.010-1.030) Urine Protein (Negative) Urine Ketones (Negative) Urine Blood (Negative) Urine Nitrate (Negative) Urine Bilirubin (Negative) Urine Urobilinogen (Negative) Ur Leukocyte Esterase (Negative) Urine WBC (Auto) (Absent) Urine RBC (Auto) (Absent) Ur Squamous Epith Cells (Absent) Ur Transition Epith Cell (Absent) Urine Bacteria (Absent) Hyaline Casts (Absent) Urine Glucose (Negative) 02/15/17 02/15/17 02/15/17 Range/Units 15:35 17:48 22:18 WBC (3.5-10.8) 10^3/ul RBC (4.0-5.4) 10^6/ul Hgb (12.0-16.0) g/dl Hct (35-47) % MCV (80-97) fL MCH (27-31) pg MCHC (31-36) g/dl RDW (10.5-15) % Plt Count (150-450) 10^3/ul MPV (7.4-10.4) um3 Neut % (Auto) (38-83) % Lymph % (Auto) (25-47) % [place] % (Auto) (1-9) % Eos % (Auto) (0-6) % Baso % (Auto) (0-2) % Absolute Neuts (auto) (1.5-7.7) 10^3/ul Absolute Lymphs (auto) (1.0-4.8) 10^3/ul Absolute Monos (auto) (0-0.8) 10^3/ul Absolute Eos (auto) (0-0.6) 10^3/ul Absolute Basos (auto) (0-0.2) 10^3/ul Absolute Nucleated RBC 10^3/ul Nucleated RBC % Sodium (133-145) mmol/L Potassium (3.5-5.0) mmol/L Chloride (101-111) mmol/L Carbon Dioxide (22-32) mmol/L Anion Gap (2-11) mmol/L BUN (6-24) mg/dL Creatinine (0.51-0.95) mg/dL Est GFR ( Amer) (>60) Est GFR (Non-Af Amer) (>60) BUN/Creatinine Ratio (8-20) Glucose (70-100) mg/dL POC Glucose (mg/dL) 93 90 (74-106) mg/dL Lactic Acid (0.5-2.0) mmol/L Calcium (8.6-10.3) mg/dL Magnesium (1.9-2.7) mg/dL Total Bilirubin (0.2-1.0) mg/dL AST (13-39) U/L ALT (7-52) U/L Alkaline Phosphatase (34-104) U/L Troponin I (<0.04) ng/mL Total Protein (6.4-8.9) g/dL Albumin (3.2-5.2) g/dL Globulin (2-4) g/dL Albumin/Globulin Ratio (1-3) TSH (0.34-5.60) mcIU/mL Urine Color Yellow Urine Appearance Cloudy Urine pH 5.0 (5-9) Ur Specific [place] 1.006 L (1.010-1.030) Urine Protein Negative (Negative) Urine Ketones Negative (Negative) Urine Blood 2+ H (Negative) Urine Nitrate Negative (Negative) Urine Bilirubin Negative (Negative) Urine Urobilinogen Negative (Negative) Ur Leukocyte Esterase 3+ H (Negative) Urine WBC (Auto) 2+(11-20/hpf) H (Absent) Urine RBC (Auto) 2+(6-10/hpf) H (Absent) Ur Squamous Epith Cells Present H (Absent) Ur Transition Epith Cell Present H (Absent) Urine Bacteria 1+ H (Absent) Hyaline Casts Present H (Absent) Urine Glucose Negative (Negative) 02/16/17 02/16/17 02/16/17 Range/Units 06:36 07:52 07:57 WBC (3.5-10.8) 10^3/ul RBC (4.0-5.4) 10^6/ul Hgb (12.0-16.0) g/dl Hct (35-47) % MCV (80-97) fL MCH (27-31) pg MCHC (31-36) g/dl RDW (10.5-15) % Plt Count (150-450) 10^3/ul MPV (7.4-10.4) um3 Neut % (Auto) (38-83) % Lymph % (Auto) (25-47) % [place] % (Auto) (1-9) % Eos % (Auto) (0-6) % Baso % (Auto) (0-2) % Absolute Neuts (auto) (1.5-7.7) 10^3/ul Absolute Lymphs (auto) (1.0-4.8) 10^3/ul Absolute Monos (auto) (0-0.8) 10^3/ul Absolute Eos (auto) (0-0.6) 10^3/ul Absolute Basos (auto) (0-0.2) 10^3/ul Absolute Nucleated RBC 10^3/ul Nucleated RBC % Sodium 130 L (133-145) mmol/L Potassium 5.0 (3.5-5.0) mmol/L Chloride 108 (101-111) mmol/L Carbon Dioxide 22 (22-32) mmol/L Anion Gap (2-11) mmol/L BUN 55 H (6-24) mg/dL Creatinine 2.46 H (0.51-0.95) mg/dL Est GFR ( Amer) 24.7 (>60) Est GFR (Non-Af Amer) 19.2 (>60) BUN/Creatinine Ratio 22.4 H (8-20) Glucose 55 L (70-100) mg/dL POC Glucose (mg/dL) 43 L 63 L (74-106) mg/dL Lactic Acid (0.5-2.0) mmol/L Calcium 8.8 (8.6-10.3) mg/dL Magnesium (1.9-2.7) mg/dL Total Bilirubin (0.2-1.0) mg/dL AST (13-39) U/L ALT (7-52) U/L Alkaline Phosphatase (34-104) U/L Troponin I (<0.04) ng/mL Total Protein (6.4-8.9) g/dL Albumin (3.2-5.2) g/dL Globulin (2-4) g/dL Albumin/Globulin Ratio (1-3) TSH (0.34-5.60) mcIU/mL Urine Color Urine Appearance Urine pH (5-9) Ur Specific [place] (1.010-1.030) Urine Protein (Negative) Urine Ketones (Negative) Urine Blood (Negative) Urine Nitrate (Negative) Urine Bilirubin (Negative) Urine Urobilinogen (Negative) Ur Leukocyte Esterase (Negative) Urine WBC (Auto) (Absent) Urine RBC (Auto) (Absent) Ur Squamous Epith Cells (Absent) Ur Transition Epith Cell (Absent) Urine Bacteria (Absent) Hyaline Casts (Absent) Urine Glucose (Negative) Microbiology and Other Data: Microbiology 02/15/17 18:30 Nasal Screen MRSA (PCR)(MARNIE) - Final Nasal Mrsa Negative Assess/Plan/Problems-Billing Assessment: 71 yo F admitted with acute on chronic renal failure, h/o diarrhea for several weeks, chronic leg edema on diuretic at home. - Patient Problems (1) CKD (chronic kidney disease) Comment: baseline creat 1.3-1.6 with acute renal failure this hospital stay. FeNa at 0.2 indicates prerenal state. Aguilar placed for u retention on 02/21/17. IVF started.Will ask Dr. Archer to see pt in consult cont Kayexalate for hyperkalemia (2) Lower GI bleeding Comment: Hb fairly stable.(recent lower number after IVF tx-poss hemodilution) Dr. Green consulted-no further w/up recommended. Pt has h/o epigastric pain with extensive GI w/up at [facility], showing H. Pylori neg gastritis. cont Carafate. GIFT OFFICER consult appreciated. Suspect bleeding is rectal, not vaginal.Possibly due to hemorrhoids that were noted suring c-scope at [place] CT abd pelvis showed LLQ mass at 7 cm and possible omental caking. (3) Atrial flutter Comment: Continue metoprolol. today in regular rhythm rectal bleeding resolved. (4) Abdominal mass, left lower quadrant Comment: appreciate Dr. Grigsby's consult. CA125 antigen elevated. s/p CT guided bx on 02/11/17, path pending (5) Diabetes Comment: Off all hypoglycemics. Fasting FS glucose 117-120's. (6) Chronic diarrhea Comment: Pt reports her normal is 2-3 BM per day. Low lactose diet ordered. pt's concerned about pt uable to hold her bowels when getting out of shower. Had been ongoing x 4 months. Suspect bowel incontinence more problematic than the frequency of BM's. Daily Kayexalate contributes to loose BM 's Fecal lactoferrin neg and stool cx pending (7) Difficulty walking Comment: cont PT. Pt will need STR. (8) Morbid obesity Comment: BMI 47.1. (9) UTI due to extended-spectrum beta lactamase (ESBL) producing Escherichia coli Comment: started on Zosyn on 02/20/17. ID consulted (10) Normocytic anemia Comment: due to CKD with mild worsening after IVF (11) DVT prophylaxis Comment: heparin sc Status and Disposition: inpatient
[2017-02-22] MEDS: Loperamide LIQ* 2 MG/10 ML UDC PO PRN (13:10)
[2017-02-22] MEDS ORDERED: Perflutren Lipid Microsphere* 3 ML VIAL ONE (15:19)
--- NOTE | 2017-02-22 16:32 | ECHO ---
Patient: GLYNN RAVI [facility] Rec#: [id number] : 1945 Date: 02/22/2017 Age: 71y Height: 170.18 cm / 67.0 in Weight: 136.53 kg / 300.9 lbs Sex: F BSA: 2.41 Admit Date#: 02/16/2017 Type: Inpatient Referring: Sanaz Moss MD Reading: Daniel Perez MD Shift Coordinator: Adela Devine RDCS CC: MILTON Fisher Transthoracic Echocardiogram Indication: Edema, A-flutter BP: 123/45 HR: 100 Rhythm: A-Flutter Indications Edema Findings History: A-Flutter, HTN, DM, MO, former smoker, acute renal failure. Technical Comments: The study is technically difficult. The study is technically limited due to patient body habitus. The study is technically limited due to the patient's smoking history. Completed at 1620. Left Ventricle: The left ventricular chamber size is normal. Mild concentric left ventricular hypertrophy is observed. Global left ventricular wall motion and contractility are within normal limits. There is normal left ventricular systolic function. The estimated ejection fraction is 60-65%. The assessment of diastolic function is non-diagnostic. Left Atrium: The left atrium is moderately dilated. Right Ventricle: The right ventricle is slightly dilated. The right ventricular global systolic function is normal. A pacemaker wire is visualized in the right ventricle. Right Atrium: The right atrium is moderately dilated. Aortic Valve: The aortic valve structure is not well visualized. The aortic valve is trileaflet. The aortic valve leaflets are mildly thickened. Mild aortic leaflet calcification is visualized. Systolic excursion of the aortic valve cusps is reduced. There is a trace of aortic regurgitation. There is mild aortic stenosis.by continuity. The degree of may be underestimated due to the doppler angle. The seems to be more moderate by 2d. Mitral Valve: The mitral valve leaflets are mildly thickened. There is mild mitral regurgitation. There is no evidence of mitral stenosis. Tricuspid Valve: The tricuspid valve leaflets are normal. There is moderate tricuspid regurgitation. The right ventricular systolic pressure is estimated at 56 mmHg. There is evidence of moderate pulmonary hypertension. There is no tricuspid stenosis. Pulmonic Valve: The pulmonic valve structure is not well visualized. There is no evidence of pulmonic regurgitation. There is no pulmonic stenosis. Pericardium: There is no significant pericardial effusion. A pericardial fat pad is visualized. Aorta: There is no dilatation of the ascending aorta. The aortic arch is not well visualized. There is no dilation of the aortic root. Pulmonary Artery: The main pulmonary artery is not well visualized. Venous: The venous system is not well visualized. Contrast: Definity was used to optimize study. 3 mL of diluted Difinity was utilized. Intravenous contrast was used to enhance endocardial border definition. Summary: There was not any prior study for comparison. Conclusions The study is technically difficult. Mild concentric left ventricular hypertrophy is observed. Global left ventricular wall motion and contractility are within normal limits. There is normal left ventricular systolic function. The estimated ejection fraction is 60-65%. The left atrium is moderately dilated. The right ventricle is slightly dilated. The right ventricular global systolic function is normal. The right atrium is moderately dilated. There is mild aortic stenosis.by continuity. The degree of may be underestimated due to the doppler angle. The seems to be more moderate by 2d. The aortic valve structure is not well visualized. There is mild mitral regurgitation. There is moderate tricuspid regurgitation. The right ventricular systolic pressure is estimated at 56 mmHg. There is evidence of moderate pulmonary hypertension. There is artifact the RV suggestive of a pacemaker wire. Measurements Name Value Normal Range RVIDd (AP) 2D 3.3 cm (0.9 - 2.6) RVDdMajor (2D) 4.1 cm (2.2 - 4.4) RAd ISD 4CH 6 cm (3.4 - 4.9) RA (A4C)W 4.1 cm (2.9 - 4.6) IVSd (2D) 1.2 cm (0.6 - 1) LVPWd (2D) 1.2 cm (0.6 - 1) LVIDd (2D) 4 cm (3.6 - 5.4) LVIDs (2D) 2.1 cm - LV FS (2D) 46 % (25 - 45) Aortic Annulus 2 cm (1.4 - 2.6) Ao root diameter (2D) 2.8 cm (2.1 - 3.5) Ascending Ao 2.9 cm (2.1 - 3.4) LA dimension (AP) 2D 4.2 cm (2.3 - 3.8) LAd ISD 4CH 6.3 cm (2.9 - 5.3) LA ISD 4CH W 4.6 cm (2.5 - 4.5) Name Value Normal Range LA ESV SP 4CH (A/L) 92 ml - LA ESV SP 2CH (A/L) 79 ml - LA ESV BP (A/L) 88 ml - LA ESV BP (A/L) index 36.71 ml/m2 - LA ESV SP 4CH (MOD) 83 ml - LA ESV SP 2CH (MOD) 73 ml - Name Value Normal Range MV E-wave Vmax 1 m/sec - MV deceleration time 219.91 msec - LV septal e' Vmax 0.09 m/sec - LV lateral e' Vmax 0.1 m/sec - LV E:e' septal ratio 11.11 ratio - LV E:e' lateral ratio 10 ratio - Name Value Normal Range AV Vmax 2.1 m/sec - AV VTI 34.93 cm - AV peak gradient 17.74 mmHg - AV mean gradient 8.7 mmHg - LVOT diameter 2 cm - LVOT Vmax 1.09 m/sec - LVOT VTI 20.24 cm - LVOT peak gradient 4.79 mmHg - LVOT mean gradient 2.36 mmHg - DOI (VTI) 0.58 ratio - APULA (continuity Vmax) 1.63 cm2 - PAULA (continuity VTI) 1.82 cm2 - Name Value Normal Range TR Vmax 3.3 m/sec - TR peak gradient 44 mmHg - RAP 8 mmHg - RVSP 56 mmHg - Name Value Normal Range PV Vmax 0.98 m/sec - PV peak gradient 3.89 mmHg -
[2017-02-22] MEDS: Atorvastatin* 10 MG TAB PO SCH (16:52)
[2017-02-22] MEDS: ZOSYN 3.375 GM Q12H per EXTENDED INFUSION IVPB SCH ×2 (16:53)
[2017-02-22] MEDS: Gabapentin CAP(*) 100 MG PO SCH (22:15)
[2017-02-23] MEDS: oxyCODONE TAB* 5 MG TAB PO PRN (02:42)
--- NOTE | 2017-02-23 03:44 | CONS ---
NEPHROLOGY CONSULTATION: DATE OF CONSULT: HISTORY OF PRESENT ILLNESS: Ms. Jean is a 71-year-old female with a history of diabetes mellitus a nd chronic renal insufficiency, who apparently had been hospitalized over at the [facility] for what was felt to be community-acquired pneumonia. She was treated and she was dis charged to short term rehabilitation. She was then discharged to home, but her could not ge t her out of the truck and as a result, she was brought over to [facility]. Here, she giv es no history whatsoever and the history is taken from the record and from the . He relates most of her problems back to a fall she had back in October, but I am not aware that there have been a ny prolonged injuries in that regard. She has been having a great deal of diarrhea, she has had marcos e hypoglycemic episodes recently. She has a history of diabetes mellitus type 2; history of atrial flutter, on chronic anticoagulation. She has had recurrent urinary tract infections and has one rig ht now. She has history of hypertension. She is status post a pacemaker insertion. She has had a r ight total knee replacement. MEDICATIONS: At the time of admission her medications included; 1. MiraLAX 17 g daily. 2. Imodium 2 mg after each loose bowel movement. 3. Acidophilus 1 twice a day. 4. Simvastatin 20 mg at bedtime. 5. Hydrochlorothiazide 12.5 mg daily. 6. Metoprolol 100 mg daily. 7. Xarelto 15 mg daily. 8. Iron sulfate 325 mg 3 times a day. 9. Carafate 1 g orally 4 times a day. 10. Protonix 40 mg daily. 11 Gabapentin 200 mg at bedtime. SOCIAL HISTORY: There is no history of alcohol use. She was a former smoker. FAMILY HISTORY: Significant in her mother had diabetes mellitus. PHYSICAL EXAMINATION: With much stimulation, she opens her eyes and looks at us, but she does not o bey commends at all and yet when I asked the nurse how she was able to get up to get out of bed, slo wly she stands up and walks, which makes me wonder exactly how much she can actually do for herself and how much she would not do for herself. Her blood pressure is 123/45 with a pulse of 75, which i s regular, respirations are 60. She is afebrile. She is anicteric. Her extraocular muscles are in tact. Her mucous membranes are moist. She has got a very large neck and I could not see any neck v eins at all. Her chest is clear. The heart revealed a very distant heart tones, so I was not able to hear any murmurs. The abdomen is grossly obese. Bones, joints, extremities, she has got 1 to 2+ edema up to about her knees. LABORATORY DATA: Review of her laboratory studies reveals a white count of 6.5, hemoglobin of 8.8. Sodium of 134, potassium 5, total CO2 of 19, chloride 107, BUN 72 with a creatinine of 3.81. Her c reatinine has been rising steadily since she came into the hospital with a minimum of 2.24. She has had a fractional excretion of sodium, which was found to be 0.19. Her calcium is 8.4 with an album in of 3.2. Urinalysis reveals a specify gravity of 1.006, 2+ blood, 3+ leukocyte esterase, 2+ wbc's, 2+ rbc's. She had has a Aguilar catheter placed and her urine output has been quite poor. IMPRESSION: She probably has acute tubular necrosis, now on the basis of prolonged prerenal state. Unfortunately, I do not have a really good clue as to why she would have a prerenal state. Clearly , she was total-body salt and water overloaded. She could have a history of congestive heart failur e, there could be valvular heart disease, there could be renal artery stenosis, there could be multi ple pulmonary emboli. I think she should have an echocardiogram. I would continue IV fluids at the present time even in the face of her edema. It probably would be a reasonable thing to go ahead a nd wrap her legs in Ottoniel bandages up to her thighs. I have discussed the case at length with ___ __. [id number]/[facility] #: [id number]
[2017-02-23] MEDS: ZOSYN 3.375 GM Q12H per EXTENDED INFUSION IVPB SCH ×4 (05:29→17:06)
[2017-02-23 05:56] LABS: Hematocrit 31 % (35-47); Hemoglobin 9.9 g/dl (12.0-16.0); Mean Corpuscular HGB Conc 32 g/dl (31-36); Mean Corpuscular Hemoglobin 30 pg (27-31); Mean Corpuscular Volume 94 fL (80-97); Mean Platelet Volume 7 um3 (7.4-10.4); Red Blood Count 3.29 10^6/ul (4.0-5.4); Red Cell Distribution Width 16 % (10.5-15); White Blood Count 8.2 10^3/ul (3.5-10.8)
[2017-02-23 05:57] LABS: Add Diff/Slide Review? Slide Review Added; Comments Flag Yes
[2017-02-23] MEDS: Heparin VIAL(*) 5000 UNITS/ML VIAL (FIVE THOUSAND) SUBCUT SCH ×3 (06:03→21:54)
[2017-02-23] MEDS: Sucralfate SUSP 1 GM/10 ml 10 ML UDC PO SCH ×4 (06:03→21:53)
[2017-02-23 06:13] LABS: Calcium 8.7 mg/dL (8.6-10.3); EGFR African American 12.6 (>60); EGFR Non-African American 9.8 (>60); Potassium 4.9 mmol/L (3.5-5.0)
[2017-02-23] MEDS: Metoprolol Succinate XL TAB* 100 MG PO SCH ×2 (08:21→09:17)
[2017-02-23] MEDS: Sodium Polystyrene ORAL.SOL* 15 GM/60 ML BTL PO SCH ×2 (08:21→09:18)
[2017-02-23] MEDS: NS 0.9% 1000 ML* 1,000 ML IV SCH ×2 (08:21→22:49)
[2017-02-23] MEDS: Zinc Oxide 40% (TOPICAL)* TUBE TOPICAL SCH ×4 (08:21→23:45)
[2017-02-23] MEDS: Acetaminophen TAB* 325 MG PO SCH ×5 (08:21→21:54)
[2017-02-23] MEDS: Omeprazole CAP* 20 MG PO SCH ×2 (08:21→09:17)
[2017-02-23] MEDS: Lactobacillus Acidophilu (GG)* 1 CAP CAP PO SCH ×3 (08:21→21:53)
--- NOTE | 2017-02-23 11:53 | CONS ---
CONSULTATION REPORT: DATE OF CONSULTATION: 02/22/17 REQUESTING PHYSICIAN: Dr. Dykes. CONSULTING SERVICE: Infectious Disease. REASON FOR CONSULTATION: E. coli bacteria. IMPRESSION: 1. Admitted with weakness, acute on chronic kidney failure, abdominal mass. 2. Urinalysis taken for workup of weakness showed leukocyte esterase and blood in the urine. Culture grew E. coli was an ESBL produced along with normal jordy. No urinary symptoms. She did have a Aguilar catheter placed at [facility]. She has been on Zosyn for 3 days, she is asymptomatic. It is difficult to tell if this is urinary tract infection or asymptomatic bacteruria. Given her comorbid conditions we will plan to treat as urinary tract infection. 3. Abdominal mass, seen on CT of the abdomen and pelvis showed presumed omental caking and intraperitoneal masses, and left adrenal mass, porcelain swollen gallbladder, ventral wall hernia. She has had biopsy of the mass. 4. Chronic kidney disease. 5. Atrial flutter. RECOMMENDATIONS: Give Zosyn to complete a five-day course. She does have a Aguilar catheter for drainage. She does not have any evidence of stone disease or hydronephrosis on CT imaging. HISTORY OF PRESENT ILLNESS: This is a 71-year-old woman, admitted with fatigue and malaise. She cannot provide much of the history, so obtained instead from discussion with the patient's , and Dr. Moss, and from review of medical record. She had been at [facility] after a fall, found to have an acute kidney injury. She was seen by Nephrology there. She was treated for metabolic encephalopathy. She was discharged and came back in with dehydration. Admitted for a couple of days. According to the patient's , took multiple nursing staff to get her into his vehicle and then he realized he could not get her home, so he brought her to the hospital here. She was found to have worsening GFR and hyperkalemia. Main complaint was described as weakness. She was admitted to the hospital on the . Creatinine has continued to increase to 3.8 today. She has a Aguilar catheter, which was placed yesterday. Abdominal masses were detected on imaging, tumor marker was 665. She had biopsy of mass today, which she tolerated well. Urinalysis that showed blood, leukocyte esterase, white cells. Culture was reported back as noted above. She has a history of diarrhea, stool culture was sent and is pending. She has been on Zosyn for a few days, tolerating it well. PAST MEDICAL HISTORY: 1. Atrial fibrillation. 2. Type 2 diabetes mellitus. 3. History of urinary tract infection. 4. Hypertension. 5. Diarrhea. 6. Status post pacemaker placement. ALLERGIES: To PROPOXYPHENE. MEDICATIONS: 1. Tylenol. 2. Lipitor. 3. Benzonatate. 4. Gabapentin. 5. Heparin subcutaneous injection. 6 Lactobacillus. 7. Loperamide. 8. Sucralfate. 9. Oxycodone p.r.n. SOCIAL HISTORY: She lives with her outside of [place]; no travel or sick contacts. REVIEW OF SYSTEMS: All negative except as noted above to full review of systems. PHYSICAL EXAMINATION: Vital Signs: Temperature is 36, heart rate 70, respiratory rate 16, blood pressure 116/47, O2 saturation 100% on room air. General: She is awake, not in distress. Neurologic: She is awake but occasionally she dozes off. She does not follow commands. Answers some questions. HEENT: There is no conjunctival hemorrhage. Oropharynx without lesions. Neck: Supple without nuchal rigidity. Lymph Nodes: There is no cervical, supraclavicular, inguinal, axillary, or epitrochlear lymphadenopathy. Heart: Regular rate and rhythm without murmurs, rubs, or gallops. Lungs: Clear to auscultation. Abdomen: Obese. She has bowel sounds present. The patient has no rebound. Skin: No rash or splinter hemorrhages. Musculoskeletal : There is no spine tenderness to palpation or joint synovitis. Extremities: Bilateral 3+ nonpitting lower extremity edema. LABORATORY DATA: Creatinine 3.8, BUN 7. White blood cell count 6, hemoglobin 8 , platelets 202, MCV is 94. C-reactive protein on admission was 50. Please see impressions and recommendations outlined above, which I have discussed with Dr. Moss. Thank you for asking me to see Ms. Jean in consultation. [id number]/[facility] #: [id number] FREYA
--- NOTE | 2017-02-23 12:27 | PN ---
Subjective Date of Service: 02/23/17 Interval History: Pt is more awake and interactive today. ate breakfast, denies pain. Last BM yesterday, none since Imodium yesterday Objective Active Medications: Acetaminophen (Tylenol Tab*) 650 mg PO Q4H PRN PRN Reason: PAIN/INFLAMMATION Last Admin: 02/17/17 02:49 Dose: 650 mg Acetaminophen (Tylenol Tab*) 650 mg PO QID [facility] Last Admin: 02/23/17 09:17 Dose: 650 mg Atorvastatin Calcium (Lipitor*) 10 mg PO QPM [facility] Last Admin: 02/22/17 16:52 Dose: 10 mg Benzonatate (Tessalon Cap*) 200 mg PO TID PRN PRN Reason: COUGH Dextrose (D50w Syringe 50 Ml*) 12.5 gm IV PUSH .FOR FS < 60 - SS PRN PRN Reason: FS < 60 Gabapentin (Neurontin Cap(*)) 100 mg PO BEDTIME [facility] Last Admin: 02/22/17 22:15 Dose: 100 mg Heparin Sodium (Porcine) (Heparin Vial(*)) 5,000 units SUBCUT Q8HR [facility] Last Admin: 02/23/17 06:03 Dose: 5,000 units Piperacillin Sod/Tazobactam (Sod 3.375 gm/ Sodium Chloride) 100 mls @ 25 mls/ hr IVPB Q12H [facility] Last Admin: 02/23/17 05:29 Dose: 25 mls/hr Sodium Chloride (Ns 0.9% 1000 Ml*) 1,000 mls @ 100 mls/hr IV PER RATE [facility] Last Admin: 02/23/17 08:21 Dose: 100 mls/hr Lactobacillus Rhamnosus (Culturelle*) 1 cap PO BID [facility] Last Admin: 02/23/17 09:18 Dose: 1 cap Loperamide HCl (Imodium Liq*) 2 mg PO DAILY PRN PRN Reason: DIARRHEA Last Admin: 02/22/17 13:10 Dose: 2 mg Metoprolol Succinate (Toprol Xl Tab*) 100 mg PO DAILY [facility] Last Admin: 02/23/17 09:17 Dose: 100 mg Omeprazole (Prilosec Cap*) 20 mg PO DAILY [facility] Last Admin: 02/23/17 09:17 Dose: 20 mg Oxycodone HCl (Roxycodone Tab*) 5 mg PO Q4H PRN PRN Reason: PAIN Last Admin: 02/23/17 02:42 Dose: 5 mg Pharmacy Consult (Zosyn Per Pharmacy*) 1 note FOLLOW UP .ZOSYN PER PHARMACY [facility] Simethicone (Mylicon*) 80 mg PO Q6H PRN PRN Reason: DISCOMFORT Sodium Polystyrene Sulfonate (Kayexalate Oral.Yamila*) 15 gm PO DAILY [facility] Last Admin: 02/23/17 09:18 Dose: 15 gm Sucralfate (Sucralfate Susp) 1 gm PO 0600,1100,1600,2100 [facility] Last Admin: 02/23/17 10:47 Dose: 1 gm Zinc Oxide (Zinc Oxide 40% (Topical)*) 1 applic TOPICAL TID [facility] Last Admin: 02/23/17 09:26 Dose: 1 applic Vital Signs 02/22/17 02/22/17 02/22/17 12:22 13:10 15:10 Temperature Pulse Rate Respiratory 16 16 18 Rate Blood Pressure (mmHg) O2 Sat by Pulse Oximetry 02/22/17 02/22/17 02/22/17 16:04 19:54 20:00 Temperature 97.3 F 98.2 F Pulse Rate 75 75 Respiratory 16 16 16 Rate Blood Pressure 116/47 129/41 (mmHg) O2 Sat by Pulse 100 100 Oximetry 02/22/17 02/22/17 02/23/17 22:15 23:02 00:00 Temperature Pulse Rate 75 Respiratory 18 12 Rate Blood Pressure 132/51 (mmHg) O2 Sat by Pulse 94 100 Oximetry 02/23/17 02/23/17 02/23/17 00:15 02:42 03:54 Temperature 97.3 F Pulse Rate 75 Respiratory 16 16 16 Rate Blood Pressure 136/51 (mmHg) O2 Sat by Pulse 99 Oximetry 02/23/17 02/23/17 02/23/17 04:42 07:56 08:00 Temperature 97.6 F Pulse Rate 73 Respiratory 16 18 18 Rate Blood Pressure 128/50 (mmHg) O2 Sat by Pulse 100 100 Oximetry 02/23/17 09:48 Temperature Pulse Rate Respiratory Rate Blood Pressure (mmHg) O2 Sat by Pulse 100 Oximetry Oxygen Devices in Use Now: None Appearance: 71 yo F in nAD, AAOx2 Eyes: No Scleral Icterus, PERRLA Ears/Nose/Mouth/Throat: NL Teeth, Lips, Gums, Mucous Membranes Moist Neck: NL Appearance and Movements; NL JVP, Trachea Midline Respiratory: Symmetrical Chest Expansion and Respiratory Effort, Clear to Auscultation Cardiovascular: NL Sounds; No Murmurs; No JVD, RRR Abdominal: NL Sounds; No Tenderness; No Distention, No Hepatosplenomegaly Lymphatic: No Cervical Adenopathy Extremities: No Clubbing, Cyanosis, - - +2 pitting LE's edema b/l Neurological: NL Muscle Strength and Tone Result Diagrams: 02/23/17 05:48 02/23/17 05:48 Additional Lab and Data: Lab Results 02/15/17 02/15/17 02/15/17 Range/Units 13:53 13:53 13:53 WBC 8.1 (3.5-10.8) 10^3/ul RBC 3.74 L (4.0-5.4) 10^6/ul Hgb 10.9 L (12.0-16.0) g/dl Hct 34 L (35-47) % MCV 91 (80-97) fL MCH 29 (27-31) pg MCHC 32 (31-36) g/dl RDW 15 (10.5-15) % Plt Count 252 (150-450) 10^3/ul MPV 7 L (7.4-10.4) um3 Neut % (Auto) 83.7 H (38-83) % Lymph % (Auto) 5.9 L (25-47) % [place] % (Auto) 8.5 (1-9) % Eos % (Auto) 1.1 (0-6) % Baso % (Auto) 0.8 (0-2) % Absolute Neuts (auto) 6.8 (1.5-7.7) 10^3/ul Absolute Lymphs (auto) 0.5 L (1.0-4.8) 10^3/ul Absolute Monos (auto) 0.7 (0-0.8) 10^3/ul Absolute Eos (auto) 0.1 (0-0.6) 10^3/ul Absolute Basos (auto) 0.1 (0-0.2) 10^3/ul Absolute Nucleated RBC 0 10^3/ul Nucleated RBC % 0 Sodium 131 L (133-145) mmol/L Potassium 5.5 H (3.5-5.0) mmol/L Chloride 101 (101-111) mmol/L Carbon Dioxide 23 (22-32) mmol/L Anion Gap 7 (2-11) mmol/L BUN 53 H (6-24) mg/dL Creatinine 2.60 H (0.51-0.95) mg/dL Est GFR ( Amer) 23.2 (>60) Est GFR (Non-Af Amer) 18.0 (>60) BUN/Creatinine Ratio 20.4 H (8-20) Glucose 157 H (70-100) mg/dL POC Glucose (mg/dL) (74-106) mg/dL Lactic Acid 1.1 (0.5-2.0) mmol/L Calcium 9.3 (8.6-10.3) mg/dL Magnesium 1.9 (1.9-2.7) mg/dL Total Bilirubin 0.40 (0.2-1.0) mg/dL AST 15 (13-39) U/L ALT 10 (7-52) U/L Alkaline Phosphatase 85 (34-104) U/L Troponin I 0.01 (<0.04) ng/mL Total Protein 6.6 (6.4-8.9) g/dL Albumin 3.2 (3.2-5.2) g/dL Globulin 3.4 (2-4) g/dL Albumin/Globulin Ratio 0.9 L (1-3) TSH 2.39 (0.34-5.60) mcIU/mL Urine Color Urine Appearance Urine pH (5-9) Ur Specific Kake (1.010-1.030) Urine Protein (Negative) Urine Ketones (Negative) Urine Blood (Negative) Urine Nitrate (Negative) Urine Bilirubin (Negative) Urine Urobilinogen (Negative) Ur Leukocyte Esterase (Negative) Urine WBC (Auto) (Absent) Urine RBC (Auto) (Absent) Ur Squamous Epith Cells (Absent) Ur Transition Epith Cell (Absent) Urine Bacteria (Absent) Hyaline Casts (Absent) Urine Glucose (Negative) 02/15/17 02/15/17 02/15/17 Range/Units 15:35 17:48 22:18 WBC (3.5-10.8) 10^3/ul RBC (4.0-5.4) 10^6/ul Hgb (12.0-16.0) g/dl Hct (35-47) % MCV (80-97) fL MCH (27-31) pg MCHC (31-36) g/dl RDW (10.5-15) % Plt Count (150-450) 10^3/ul MPV (7.4-10.4) um3 Neut % (Auto) (38-83) % Lymph % (Auto) (25-47) % [place] % (Auto) (1-9) % Eos % (Auto) (0-6) % Baso % (Auto) (0-2) % Absolute Neuts (auto) (1.5-7.7) 10^3/ul Absolute Lymphs (auto) (1.0-4.8) 10^3/ul Absolute Monos (auto) (0-0.8) 10^3/ul Absolute Eos (auto) (0-0.6) 10^3/ul Absolute Basos (auto) (0-0.2) 10^3/ul Absolute Nucleated RBC 10^3/ul Nucleated RBC % Sodium (133-145) mmol/L Potassium (3.5-5.0) mmol/L Chloride (101-111) mmol/L Carbon Dioxide (22-32) mmol/L Anion Gap (2-11) mmol/L BUN (6-24) mg/dL Creatinine (0.51-0.95) mg/dL Est GFR ( Amer) (>60) Est GFR (Non-Af Amer) (>60) BUN/Creatinine Ratio (8-20) Glucose (70-100) mg/dL POC Glucose (mg/dL) 93 90 (74-106) mg/dL Lactic Acid (0.5-2.0) mmol/L Calcium (8.6-10.3) mg/dL Magnesium (1.9-2.7) mg/dL Total Bilirubin (0.2-1.0) mg/dL AST (13-39) U/L ALT (7-52) U/L Alkaline Phosphatase (34-104) U/L Troponin I (<0.04) ng/mL Total Protein (6.4-8.9) g/dL Albumin (3.2-5.2) g/dL Globulin (2-4) g/dL Albumin/Globulin Ratio (1-3) TSH (0.34-5.60) mcIU/mL Urine Color Yellow Urine Appearance Cloudy Urine pH 5.0 (5-9) Ur Specific Kake 1.006 L (1.010-1.030) Urine Protein Negative (Negative) Urine Ketones Negative (Negative) Urine Blood 2+ H (Negative) Urine Nitrate Negative (Negative) Urine Bilirubin Negative (Negative) Urine Urobilinogen Negative (Negative) Ur Leukocyte Esterase 3+ H (Negative) Urine WBC (Auto) 2+(11-20/hpf) H (Absent) Urine RBC (Auto) 2+(6-10/hpf) H (Absent) Ur Squamous Epith Cells Present H (Absent) Ur Transition Epith Cell Present H (Absent) Urine Bacteria 1+ H (Absent) Hyaline Casts Present H (Absent) Urine Glucose Negative (Negative) 02/16/17 02/16/17 02/16/17 Range/Units 06:36 07:52 07:57 WBC (3.5-10.8) 10^3/ul RBC (4.0-5.4) 10^6/ul Hgb (12.0-16.0) g/dl Hct (35-47) % MCV (80-97) fL MCH (27-31) pg MCHC (31-36) g/dl RDW (10.5-15) % Plt Count (150-450) 10^3/ul MPV (7.4-10.4) um3 Neut % (Auto) (38-83) % Lymph % (Auto) (25-47) % [place] % (Auto) (1-9) % Eos % (Auto) (0-6) % Baso % (Auto) (0-2) % Absolute Neuts (auto) (1.5-7.7) 10^3/ul Absolute Lymphs (auto) (1.0-4.8) 10^3/ul Absolute Monos (auto) (0-0.8) 10^3/ul Absolute Eos (auto) (0-0.6) 10^3/ul Absolute Basos (auto) (0-0.2) 10^3/ul Absolute Nucleated RBC 10^3/ul Nucleated RBC % Sodium 130 L (133-145) mmol/L Potassium 5.0 (3.5-5.0) mmol/L Chloride 108 (101-111) mmol/L Carbon Dioxide 22 (22-32) mmol/L Anion Gap (2-11) mmol/L BUN 55 H (6-24) mg/dL Creatinine 2.46 H (0.51-0.95) mg/dL Est GFR ( Amer) 24.7 (>60) Est GFR (Non-Af Amer) 19.2 (>60) BUN/Creatinine Ratio 22.4 H (8-20) Glucose 55 L (70-100) mg/dL POC Glucose (mg/dL) 43 L 63 L (74-106) mg/dL Lactic Acid (0.5-2.0) mmol/L Calcium 8.8 (8.6-10.3) mg/dL Magnesium (1.9-2.7) mg/dL Total Bilirubin (0.2-1.0) mg/dL AST (13-39) U/L ALT (7-52) U/L Alkaline Phosphatase (34-104) U/L Troponin I (<0.04) ng/mL Total Protein (6.4-8.9) g/dL Albumin (3.2-5.2) g/dL Globulin (2-4) g/dL Albumin/Globulin Ratio (1-3) TSH (0.34-5.60) mcIU/mL Urine Color Urine Appearance Urine pH (5-9) Ur Specific Kake (1.010-1.030) Urine Protein (Negative) Urine Ketones (Negative) Urine Blood (Negative) Urine Nitrate (Negative) Urine Bilirubin (Negative) Urine Urobilinogen (Negative) Ur Leukocyte Esterase (Negative) Urine WBC (Auto) (Absent) Urine RBC (Auto) (Absent) Ur Squamous Epith Cells (Absent) Ur Transition Epith Cell (Absent) Urine Bacteria (Absent) Hyaline Casts (Absent) Urine Glucose (Negative) Microbiology and Other Data: Microbiology 02/15/17 18:30 Nasal Screen MRSA (PCR)(MARNIE) - Final Nasal Mrsa Negative Assess/Plan/Problems-Billing Assessment: 71 yo F admitted with acute on chronic renal failure, h/o diarrhea for several weeks, chronic leg edema on diuretic at home. - Patient Problems (1) CKD (chronic kidney disease) Comment: baseline creat 1.3-1.6. today still climbing>4 with acute renal failure this hospital stay. FeNa at 0.2 indicates prerenal state. Aguilar placed for u retention on 02/21/17. IVF started. appreciate Dr. Archer's recommendations. Possible ATN due to prerenal state. cont IVF GOOD bandages to LE's ordered. Echo shows EF 60%, mod , mod pulm HTN. (2) Lower GI bleeding Comment: Hb fairly stable.(recent lower number after IVF tx-poss hemodilution) Dr. Green consulted-no further w/up recommended. Pt has h/o epigastric pain with extensive GI w/up at [facility], showing H. Pylori neg gastritis. cont Carafate. BLOCK CAPTAIN consult appreciated. Suspect bleeding is rectal, not vaginal.Possibly due to hemorrhoids that were noted suring c-scope at [place] CT abd pelvis showed LLQ mass at 7 cm and possible omental caking. (3) Atrial flutter Comment: Continue metoprolol. today in regular rhythm rectal bleeding resolved. (4) Abdominal mass, left lower quadrant Comment: appreciate Dr. Grigsby's consult. CA125 antigen elevated. s/p CT guided bx on 02/11/17, path pending, but prelim report conclusive of mailgnancy. CT from [place] in 11/09 shows abd fat stranding, but no masses rosaline visualised. (5) Diabetes Comment: Off all hypoglycemics. Fasting FS glucose 117-120's. (6) Chronic diarrhea Comment: Pt reports her normal is 2-3 BM per day. Low lactose diet ordered. pt's concerned about pt uable to hold her bowels when getting out of shower. Had been ongoing x 4 months. Suspect bowel incontinence more problematic than the frequency of BM's. Daily Kayexalate contributes to loose BM 's Fecal lactoferrin neg and stool cx neg. It is possible that pt has neuroendocrine malignancy causing secretory diarrhea (7) Difficulty walking Comment: cont PT. Pt will need STR. (8) Morbid obesity Comment: BMI 47.1. (9) UTI due to extended-spectrum beta lactamase (ESBL) producing Escherichia coli Comment: started on Zosyn on 02/20/17. ID recommended to complete 5 day course, last dose on 02/24/17 (10) Normocytic anemia Comment: due to CKD (11) DVT prophylaxis Comment: heparin sc Status and Disposition: inpatient
[2017-02-23] MEDS: Atorvastatin* 10 MG TAB PO SCH (17:06)
[2017-02-23] MEDS: Gabapentin CAP(*) 100 MG PO SCH (21:53)
[2017-02-24] MEDS: oxyCODONE TAB* 5 MG TAB PO PRN (00:34)
[2017-02-24] MEDS: ZOSYN 3.375 GM Q12H per EXTENDED INFUSION IVPB SCH ×4 (05:24→17:08)
[2017-02-24] MEDS: Heparin VIAL(*) 5000 UNITS/ML VIAL (FIVE THOUSAND) SUBCUT SCH ×3 (05:25→21:27)
[2017-02-24] MEDS: Sucralfate SUSP 1 GM/10 ml 10 ML UDC PO SCH ×4 (05:25→21:07)
[2017-02-24 06:47] LABS: BUN/Creatinine Ratio 16.2 (8-20); Calcium 8.5 mg/dL (8.6-10.3); EGFR African American 11.9 (>60); EGFR Non-African American 9.2 (>60); Potassium 4.5 mmol/L (3.5-5.0)
[2017-02-24] MEDS: Metoprolol Succinate XL TAB* 100 MG PO SCH (08:57)
[2017-02-24] MEDS: Lactobacillus Acidophilu (GG)* 1 CAP CAP PO SCH ×2 (08:58→21:07)
[2017-02-24] MEDS: Sodium Polystyrene ORAL.SOL* 15 GM/60 ML BTL PO SCH (08:58)
[2017-02-24] MEDS: Acetaminophen TAB* 325 MG PO SCH ×4 (08:58→21:08)
[2017-02-24] MEDS: Omeprazole CAP* 20 MG PO SCH (08:58)
[2017-02-24] MEDS: Zinc Oxide 40% (TOPICAL)* TUBE TOPICAL SCH ×4 (08:58→21:25)
--- NOTE | 2017-02-24 11:57 | PN ---
Subjective Date of Service: 02/24/17 Interval History: Pt feels well. Appetite is good. Objective Active Medications: Acetaminophen (Tylenol Tab*) 650 mg PO Q4H PRN PRN Reason: PAIN/INFLAMMATION Last Admin: 02/17/17 02:49 Dose: 650 mg Acetaminophen (Tylenol Tab*) 650 mg PO QID [facility] Last Admin: 02/24/17 08:58 Dose: 650 mg Atorvastatin Calcium (Lipitor*) 10 mg PO QPM [facility] Last Admin: 02/23/17 17:06 Dose: 10 mg Benzonatate (Tessalon Cap*) 200 mg PO TID PRN PRN Reason: COUGH Dextrose (D50w Syringe 50 Ml*) 12.5 gm IV PUSH .FOR FS < 60 - SS PRN PRN Reason: FS < 60 Gabapentin (Neurontin Cap(*)) 100 mg PO BEDTIME [facility] Last Admin: 02/23/17 21:53 Dose: 100 mg Heparin Sodium (Porcine) (Heparin Vial(*)) 5,000 units SUBCUT Q8HR [facility] Last Admin: 02/24/17 05:25 Dose: 5,000 units Piperacillin Sod/Tazobactam (Sod 3.375 gm/ Sodium Chloride) 100 mls @ 25 mls/ hr IVPB Q12H [facility] Last Admin: 02/24/17 05:24 Dose: 25 mls/hr Sodium Chloride (Ns 0.9% 1000 Ml*) 1,000 mls @ 100 mls/hr IV PER RATE [facility] Last Admin: 02/23/17 22:49 Dose: 100 mls/hr Lactobacillus Rhamnosus (Culturelle*) 1 cap PO BID [facility] Last Admin: 02/24/17 08:58 Dose: 1 cap Loperamide HCl (Imodium Liq*) 2 mg PO DAILY PRN PRN Reason: DIARRHEA Last Admin: 02/22/17 13:10 Dose: 2 mg Metoprolol Succinate (Toprol Xl Tab*) 100 mg PO DAILY [facility] Last Admin: 02/24/17 08:57 Dose: 100 mg Omeprazole (Prilosec Cap*) 20 mg PO DAILY [facility] Last Admin: 02/24/17 08:58 Dose: 20 mg Oxycodone HCl (Roxycodone Tab*) 5 mg PO Q4H PRN PRN Reason: PAIN Last Admin: 02/24/17 00:34 Dose: 5 mg Pharmacy Consult (Zosyn Per Pharmacy*) 1 note FOLLOW UP .ZOSYN PER PHARMACY [facility] Simethicone (Mylicon*) 80 mg PO Q6H PRN PRN Reason: DISCOMFORT Sodium Polystyrene Sulfonate (Kayexalate Oral.Yamila*) 15 gm PO DAILY [facility] Last Admin: 02/24/17 08:58 Dose: 15 gm Sucralfate (Sucralfate Susp) 1 gm PO 0600,1100,1600,2100 [facility] Last Admin: 02/24/17 11:28 Dose: 1 gm Zinc Oxide (Zinc Oxide 40% (Topical)*) 1 applic TOPICAL TID [facility] Last Admin: 02/24/17 08:58 Dose: 1 applic Vital Signs 02/23/17 02/23/17 02/23/17 15:44 20:00 21:53 Temperature 96.9 F Pulse Rate 76 Respiratory 18 16 16 Rate Blood Pressure 118/47 (mmHg) O2 Sat by Pulse 100 Oximetry 02/23/17 02/23/17 02/24/17 23:23 23:53 00:00 Temperature 97.6 F Pulse Rate 75 Respiratory 18 16 Rate Blood Pressure 128/41 (mmHg) O2 Sat by Pulse 99 99 Oximetry 02/24/17 02/24/17 02/24/17 00:34 02:34 02:35 Temperature 97.1 F Pulse Rate 74 Respiratory 16 10 10 Rate Blood Pressure 130/51 (mmHg) O2 Sat by Pulse 100 Oximetry 02/24/17 02/24/17 02/24/17 07:45 08:00 08:54 Temperature Pulse Rate 75 Respiratory 16 16 Rate Blood Pressure 137/65 (mmHg) O2 Sat by Pulse 98 98 Oximetry Oxygen Devices in Use Now: None Appearance: 71 yo F in NAD, AAOx2 Eyes: No Scleral Icterus, PERRLA Ears/Nose/Mouth/Throat: NL Teeth, Lips, Gums, Mucous Membranes Moist Neck: NL Appearance and Movements; NL JVP, Trachea Midline Respiratory: Symmetrical Chest Expansion and Respiratory Effort, Clear to Auscultation Cardiovascular: RRR, - - 1/6 MELY at apex Abdominal: NL Sounds; No Tenderness; No Distention, No Hepatosplenomegaly Lymphatic: No Cervical Adenopathy Extremities: No Clubbing, Cyanosis, - - +2 pitting edema b/l Skin: No Nodules or Sclerosis, - - ecchymoses on b/l calves Neurological: - - generalized weakness Result Diagrams: 02/23/17 05:48 02/24/17 06:04 Additional Lab and Data: Lab Results 02/15/17 02/15/17 02/15/17 Range/Units 13:53 13:53 13:53 WBC 8.1 (3.5-10.8) 10^3/ul RBC 3.74 L (4.0-5.4) 10^6/ul Hgb 10.9 L (12.0-16.0) g/dl Hct 34 L (35-47) % MCV 91 (80-97) fL MCH 29 (27-31) pg MCHC 32 (31-36) g/dl RDW 15 (10.5-15) % Plt Count 252 (150-450) 10^3/ul MPV 7 L (7.4-10.4) um3 Neut % (Auto) 83.7 H (38-83) % Lymph % (Auto) 5.9 L (25-47) % [place] % (Auto) 8.5 (1-9) % Eos % (Auto) 1.1 (0-6) % Baso % (Auto) 0.8 (0-2) % Absolute Neuts (auto) 6.8 (1.5-7.7) 10^3/ul Absolute Lymphs (auto) 0.5 L (1.0-4.8) 10^3/ul Absolute Monos (auto) 0.7 (0-0.8) 10^3/ul Absolute Eos (auto) 0.1 (0-0.6) 10^3/ul Absolute Basos (auto) 0.1 (0-0.2) 10^3/ul Absolute Nucleated RBC 0 10^3/ul Nucleated RBC % 0 Sodium 131 L (133-145) mmol/L Potassium 5.5 H (3.5-5.0) mmol/L Chloride 101 (101-111) mmol/L Carbon Dioxide 23 (22-32) mmol/L Anion Gap 7 (2-11) mmol/L BUN 53 H (6-24) mg/dL Creatinine 2.60 H (0.51-0.95) mg/dL Est GFR ( Amer) 23.2 (>60) Est GFR (Non-Af Amer) 18.0 (>60) BUN/Creatinine Ratio 20.4 H (8-20) Glucose 157 H (70-100) mg/dL POC Glucose (mg/dL) (74-106) mg/dL Lactic Acid 1.1 (0.5-2.0) mmol/L Calcium 9.3 (8.6-10.3) mg/dL Magnesium 1.9 (1.9-2.7) mg/dL Total Bilirubin 0.40 (0.2-1.0) mg/dL AST 15 (13-39) U/L ALT 10 (7-52) U/L Alkaline Phosphatase 85 (34-104) U/L Troponin I 0.01 (<0.04) ng/mL Total Protein 6.6 (6.4-8.9) g/dL Albumin 3.2 (3.2-5.2) g/dL Globulin 3.4 (2-4) g/dL Albumin/Globulin Ratio 0.9 L (1-3) TSH 2.39 (0.34-5.60) mcIU/mL Urine Color Urine Appearance Urine pH (5-9) Ur Specific [place] (1.010-1.030) Urine Protein (Negative) Urine Ketones (Negative) Urine Blood (Negative) Urine Nitrate (Negative) Urine Bilirubin (Negative) Urine Urobilinogen (Negative) Ur Leukocyte Esterase (Negative) Urine WBC (Auto) (Absent) Urine RBC (Auto) (Absent) Ur Squamous Epith Cells (Absent) Ur Transition Epith Cell (Absent) Urine Bacteria (Absent) Hyaline Casts (Absent) Urine Glucose (Negative) 02/15/17 02/15/17 02/15/17 Range/Units 15:35 17:48 22:18 WBC (3.5-10.8) 10^3/ul RBC (4.0-5.4) 10^6/ul Hgb (12.0-16.0) g/dl Hct (35-47) % MCV (80-97) fL MCH (27-31) pg MCHC (31-36) g/dl RDW (10.5-15) % Plt Count (150-450) 10^3/ul MPV (7.4-10.4) um3 Neut % (Auto) (38-83) % Lymph % (Auto) (25-47) % [place] % (Auto) (1-9) % Eos % (Auto) (0-6) % Baso % (Auto) (0-2) % Absolute Neuts (auto) (1.5-7.7) 10^3/ul Absolute Lymphs (auto) (1.0-4.8) 10^3/ul Absolute Monos (auto) (0-0.8) 10^3/ul Absolute Eos (auto) (0-0.6) 10^3/ul Absolute Basos (auto) (0-0.2) 10^3/ul Absolute Nucleated RBC 10^3/ul Nucleated RBC % Sodium (133-145) mmol/L Potassium (3.5-5.0) mmol/L Chloride (101-111) mmol/L Carbon Dioxide (22-32) mmol/L Anion Gap (2-11) mmol/L BUN (6-24) mg/dL Creatinine (0.51-0.95) mg/dL Est GFR ( Amer) (>60) Est GFR (Non-Af Amer) (>60) BUN/Creatinine Ratio (8-20) Glucose (70-100) mg/dL POC Glucose (mg/dL) 93 90 (74-106) mg/dL Lactic Acid (0.5-2.0) mmol/L Calcium (8.6-10.3) mg/dL Magnesium (1.9-2.7) mg/dL Total Bilirubin (0.2-1.0) mg/dL AST (13-39) U/L ALT (7-52) U/L Alkaline Phosphatase (34-104) U/L Troponin I (<0.04) ng/mL Total Protein (6.4-8.9) g/dL Albumin (3.2-5.2) g/dL Globulin (2-4) g/dL Albumin/Globulin Ratio (1-3) TSH (0.34-5.60) mcIU/mL Urine Color Yellow Urine Appearance Cloudy Urine pH 5.0 (5-9) Ur Specific [place] 1.006 L (1.010-1.030) Urine Protein Negative (Negative) Urine Ketones Negative (Negative) Urine Blood 2+ H (Negative) Urine Nitrate Negative (Negative) Urine Bilirubin Negative (Negative) Urine Urobilinogen Negative (Negative) Ur Leukocyte Esterase 3+ H (Negative) Urine WBC (Auto) 2+(11-20/hpf) H (Absent) Urine RBC (Auto) 2+(6-10/hpf) H (Absent) Ur Squamous Epith Cells Present H (Absent) Ur Transition Epith Cell Present H (Absent) Urine Bacteria 1+ H (Absent) Hyaline Casts Present H (Absent) Urine Glucose Negative (Negative) 02/16/17 02/16/17 02/16/17 Range/Units 06:36 07:52 07:57 WBC (3.5-10.8) 10^3/ul RBC (4.0-5.4) 10^6/ul Hgb (12.0-16.0) g/dl Hct (35-47) % MCV (80-97) fL MCH (27-31) pg MCHC (31-36) g/dl RDW (10.5-15) % Plt Count (150-450) 10^3/ul MPV (7.4-10.4) um3 Neut % (Auto) (38-83) % Lymph % (Auto) (25-47) % [place] % (Auto) (1-9) % Eos % (Auto) (0-6) % Baso % (Auto) (0-2) % Absolute Neuts (auto) (1.5-7.7) 10^3/ul Absolute Lymphs (auto) (1.0-4.8) 10^3/ul Absolute Monos (auto) (0-0.8) 10^3/ul Absolute Eos (auto) (0-0.6) 10^3/ul Absolute Basos (auto) (0-0.2) 10^3/ul Absolute Nucleated RBC 10^3/ul Nucleated RBC % Sodium 130 L (133-145) mmol/L Potassium 5.0 (3.5-5.0) mmol/L Chloride 108 (101-111) mmol/L Carbon Dioxide 22 (22-32) mmol/L Anion Gap (2-11) mmol/L BUN 55 H (6-24) mg/dL Creatinine 2.46 H (0.51-0.95) mg/dL Est GFR ( Amer) 24.7 (>60) Est GFR (Non-Af Amer) 19.2 (>60) BUN/Creatinine Ratio 22.4 H (8-20) Glucose 55 L (70-100) mg/dL POC Glucose (mg/dL) 43 L 63 L (74-106) mg/dL Lactic Acid (0.5-2.0) mmol/L Calcium 8.8 (8.6-10.3) mg/dL Magnesium (1.9-2.7) mg/dL Total Bilirubin (0.2-1.0) mg/dL AST (13-39) U/L ALT (7-52) U/L Alkaline Phosphatase (34-104) U/L Troponin I (<0.04) ng/mL Total Protein (6.4-8.9) g/dL Albumin (3.2-5.2) g/dL Globulin (2-4) g/dL Albumin/Globulin Ratio (1-3) TSH (0.34-5.60) mcIU/mL Urine Color Urine Appearance Urine pH (5-9) Ur Specific [place] (1.010-1.030) Urine Protein (Negative) Urine Ketones (Negative) Urine Blood (Negative) Urine Nitrate (Negative) Urine Bilirubin (Negative) Urine Urobilinogen (Negative) Ur Leukocyte Esterase (Negative) Urine WBC (Auto) (Absent) Urine RBC (Auto) (Absent) Ur Squamous Epith Cells (Absent) Ur Transition Epith Cell (Absent) Urine Bacteria (Absent) Hyaline Casts (Absent) Urine Glucose (Negative) Microbiology and Other Data: Microbiology 02/15/17 18:30 Nasal Screen MRSA (PCR)(MARNIE) - Final Nasal Mrsa Negative Assess/Plan/Problems-Billing Assessment: 71 yo F admitted with acute on chronic renal failure, h/o diarrhea for several weeks, chronic leg edema on diuretic at home. - Patient Problems (1) CKD (chronic kidney disease) Comment: baseline creat 1.3-1.6. today still climbing>4 with acute renal failure this hospital stay. FeNa at 0.2 indicates prerenal state. Aguilar placed for u retention on 02/21/[address] Archer's recommendations. Possible ATN due to prerenal state. cont IVF GOOD bandages to LE 's ordered. Echo shows EF 60%, mod , mod pulm HTN. (2) Lower GI bleeding Comment: Hb fairly stable. Dr. Green consulted-no further w/up recommended. Pt has h/o epigastric pain with extensive GI w/up at [facility], showing H. Pylori neg gastritis. cont Carafate. HALL [employer]ENDER consult appreciated. Suspect bleeding is rectal, not vaginal.Possibly due to hemorrhoids that were noted suring c-scope at [place] CT abd pelvis showed LLQ mass at 7 cm and possible omental caking. (3) Atrial flutter Comment: Continue metoprolol. Pt has /o Mobitx tupe 2 s/p pacer in past today in regular rhythm rectal bleeding resolved. (4) Abdominal mass, left lower quadrant Comment: appreciate Dr. Grigsby's consult. CA125 antigen elevated. s/p CT guided bx on 02/11/17, path pending, but prelim report conclusive of mailgnancy. CT from [place] in 11/09 shows abd fat stranding, but no masses rosaline visualised. (5) Diabetes Comment: Off all hypoglycemics. Fasting FS glucose 117-120's. (6) Chronic diarrhea Comment: Pt reports her normal is 2-3 BM per day. Low lactose diet ordered. pt's concerned about pt uable to hold her bowels when getting out of shower. Had been ongoing x 4 months. Suspect bowel incontinence more problematic than the frequency of BM's. Daily Kayexalate contributes to loose BM 's Fecal lactoferrin neg and stool cx neg. 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 Pt will need STR. (8) Morbid obesity Comment: BMI 47.1. (9) UTI due to extended-spectrum beta lactamase (ESBL) producing Escherichia coli Comment: started on Zosyn on 02/20/17. ID recommended to complete 5 day course, last dose on 02/24/17 (10) Normocytic anemia Comment: due to CKD (11) DVT prophylaxis Comment: heparin sc Status and Disposition: inpatient
[2017-02-24] MEDS: NS 0.9% 1000 ML* 1,000 ML IV SCH (13:17)
[2017-02-24] MEDS: Loperamide LIQ* 2 MG/10 ML UDC PO PRN (14:15)
[2017-02-24] MEDS: Atorvastatin* 10 MG TAB PO SCH (17:08)
[2017-02-24] MEDS: Gabapentin CAP(*) 100 MG PO SCH (22:03)
[2017-02-25] MEDS: NS 0.9% 1000 ML* 1,000 ML IV SCH ×2 (05:07→18:24)
[2017-02-25] MEDS: Sucralfate SUSP 1 GM/10 ml 10 ML UDC PO SCH ×4 (05:53→21:51)
[2017-02-25] MEDS: Heparin VIAL(*) 5000 UNITS/ML VIAL (FIVE THOUSAND) SUBCUT SCH ×3 (05:53→21:55)
[2017-02-25 07:05] LABS: BUN/Creatinine Ratio 14.5 (8-20); Calcium 8.5 mg/dL (8.6-10.3); EGFR African American 10.5 (>60); EGFR Non-African American 8.1 (>60); Magnesium 1.8 mg/dL (1.9-2.7); Potassium 4.6 mmol/L (3.5-5.0)
[2017-02-25] MEDS ORDERED: Loperamide CAP* 2 MG PO PRN (10:41)
--- NOTE | 2017-02-25 11:38 | PN ---
Subjective Date of Service: 02/25/17 Interval History: Pt had several bouts of loose stool today. Appetite poor, denies abd pain. Low UO continues Objective Active Medications: Acetaminophen (Tylenol Tab*) 650 mg PO Q4H PRN PRN Reason: PAIN/INFLAMMATION Last Admin: 02/17/17 02:49 Dose: 650 mg Acetaminophen (Tylenol Tab*) 650 mg PO QID [facility] Last Admin: 02/24/17 21:08 Dose: 650 mg Atorvastatin Calcium (Lipitor*) 10 mg PO QPM [facility] Last Admin: 02/24/17 17:08 Dose: 10 mg Benzonatate (Tessalon Cap*) 200 mg PO TID PRN PRN Reason: COUGH Dextrose (D50w Syringe 50 Ml*) 12.5 gm IV PUSH .FOR FS < 60 - SS PRN PRN Reason: FS < 60 Gabapentin (Neurontin Cap(*)) 100 mg PO BEDTIME [facility] Last Admin: 02/24/17 22:03 Dose: Not Given Heparin Sodium (Porcine) (Heparin Vial(*)) 5,000 units SUBCUT Q8HR [facility] Last Admin: 02/25/17 05:53 Dose: 5,000 units Sodium Chloride (Ns 0.9% 1000 Ml*) 1,000 mls @ 100 mls/hr IV PER RATE [facility] Last Admin: 02/25/17 05:07 Dose: 100 mls/hr Loperamide HCl (Imodium Cap*) 2 mg PO .SEE DIRECTIONS PRN PRN Reason: DIARRHEA Metoprolol Succinate (Toprol Xl Tab*) 100 mg PO DAILY [facility] Last Admin: 02/24/17 08:57 Dose: 100 mg Omeprazole (Prilosec Cap*) 20 mg PO DAILY [facility] Last Admin: 02/24/17 08:58 Dose: 20 mg Oxycodone HCl (Roxycodone Tab*) 5 mg PO Q4H PRN PRN Reason: PAIN Last Admin: 02/24/17 00:34 Dose: 5 mg Simethicone (Mylicon*) 80 mg PO Q6H PRN PRN Reason: DISCOMFORT Sodium Polystyrene Sulfonate (Kayexalate Oral.Yamila*) 15 gm PO DAILY [facility] Last Admin: 02/24/17 08:58 Dose: 15 gm Sucralfate (Sucralfate Susp) 1 gm PO 0600,1100,1600,2100 [facility] Last Admin: 02/25/17 05:53 Dose: 1 gm Zinc Oxide (Zinc Oxide 40% (Topical)*) 1 applic TOPICAL TID [facility] Last Admin: 02/24/17 21:25 Dose: Not Given Vital Signs 02/24/17 02/24/17 02/24/17 14:15 16:15 18:13 Temperature 98.1 F Pulse Rate 76 Respiratory 16 20 16 Rate Blood Pressure 120/47 (mmHg) O2 Sat by Pulse 100 Oximetry 02/24/17 02/24/17 02/24/17 19:30 19:57 20:00 Temperature Pulse Rate Respiratory 13 13 Rate Blood Pressure (mmHg) O2 Sat by Pulse 100 Oximetry 02/24/17 02/24/17 02/25/17 20:02 23:42 00:00 Temperature 97.5 F 97.8 F Pulse Rate 78 73 Respiratory 20 16 Rate Blood Pressure 125/40 115/45 (mmHg) O2 Sat by Pulse 97 100 100 Oximetry 02/25/17 03:50 Temperature 98.0 F Pulse Rate 75 Respiratory 16 Rate Blood Pressure 142/47 (mmHg) O2 Sat by Pulse 100 Oximetry Oxygen Devices in Use Now: None Appearance: 71 yo F in nAD, aAOx2 Eyes: No Scleral Icterus, PERRLA Ears/Nose/Mouth/Throat: NL Teeth, Lips, Gums, Mucous Membranes Moist Neck: NL Appearance and Movements; NL JVP, Trachea Midline Respiratory: Symmetrical Chest Expansion and Respiratory Effort, Clear to Auscultation Cardiovascular: NL Sounds; No Murmurs; No JVD, RRR Abdominal: - - ascites palpable, soft, NT, BS+ Lymphatic: No Cervical Adenopathy Extremities: No Clubbing, Cyanosis, - - +2 pitting edema Skin: No Nodules or Sclerosis, - - on b/l LE's Neurological: - - generalized weakness, no focal deficit Result Diagrams: 02/23/17 05:48 02/25/17 06:37 Additional Lab and Data: Lab Results 02/15/17 02/15/17 02/15/17 Range/Units 13:53 13:53 13:53 WBC 8.1 (3.5-10.8) 10^3/ul RBC 3.74 L (4.0-5.4) 10^6/ul Hgb 10.9 L (12.0-16.0) g/dl Hct 34 L (35-47) % MCV 91 (80-97) fL MCH 29 (27-31) pg MCHC 32 (31-36) g/dl RDW 15 (10.5-15) % Plt Count 252 (150-450) 10^3/ul MPV 7 L (7.4-10.4) um3 Neut % (Auto) 83.7 H (38-83) % Lymph % (Auto) 5.9 L (25-47) % [place] % (Auto) 8.5 (1-9) % Eos % (Auto) 1.1 (0-6) % Baso % (Auto) 0.8 (0-2) % Absolute Neuts (auto) 6.8 (1.5-7.7) 10^3/ul Absolute Lymphs (auto) 0.5 L (1.0-4.8) 10^3/ul Absolute Monos (auto) 0.7 (0-0.8) 10^3/ul Absolute Eos (auto) 0.1 (0-0.6) 10^3/ul Absolute Basos (auto) 0.1 (0-0.2) 10^3/ul Absolute Nucleated RBC 0 10^3/ul Nucleated RBC % 0 Sodium 131 L (133-145) mmol/L Potassium 5.5 H (3.5-5.0) mmol/L Chloride 101 (101-111) mmol/L Carbon Dioxide 23 (22-32) mmol/L Anion Gap 7 (2-11) mmol/L BUN 53 H (6-24) mg/dL Creatinine 2.60 H (0.51-0.95) mg/dL Est GFR ( Amer) 23.2 (>60) Est GFR (Non-Af Amer) 18.0 (>60) BUN/Creatinine Ratio 20.4 H (8-20) Glucose 157 H (70-100) mg/dL POC Glucose (mg/dL) (74-106) mg/dL Lactic Acid 1.1 (0.5-2.0) mmol/L Calcium 9.3 (8.6-10.3) mg/dL Magnesium 1.9 (1.9-2.7) mg/dL Total Bilirubin 0.40 (0.2-1.0) mg/dL AST 15 (13-39) U/L ALT 10 (7-52) U/L Alkaline Phosphatase 85 (34-104) U/L Troponin I 0.01 (<0.04) ng/mL Total Protein 6.6 (6.4-8.9) g/dL Albumin 3.2 (3.2-5.2) g/dL Globulin 3.4 (2-4) g/dL Albumin/Globulin Ratio 0.9 L (1-3) TSH 2.39 (0.34-5.60) mcIU/mL Urine Color Urine Appearance Urine pH (5-9) Ur Specific [place] (1.010-1.030) Urine Protein (Negative) Urine Ketones (Negative) Urine Blood (Negative) Urine Nitrate (Negative) Urine Bilirubin (Negative) Urine Urobilinogen (Negative) Ur Leukocyte Esterase (Negative) Urine WBC (Auto) (Absent) Urine RBC (Auto) (Absent) Ur Squamous Epith Cells (Absent) Ur Transition Epith Cell (Absent) Urine Bacteria (Absent) Hyaline Casts (Absent) Urine Glucose (Negative) 02/15/17 02/15/17 02/15/17 Range/Units 15:35 17:48 22:18 WBC (3.5-10.8) 10^3/ul RBC (4.0-5.4) 10^6/ul Hgb (12.0-16.0) g/dl Hct (35-47) % MCV (80-97) fL MCH (27-31) pg MCHC (31-36) g/dl RDW (10.5-15) % Plt Count (150-450) 10^3/ul MPV (7.4-10.4) um3 Neut % (Auto) (38-83) % Lymph % (Auto) (25-47) % [place] % (Auto) (1-9) % Eos % (Auto) (0-6) % Baso % (Auto) (0-2) % Absolute Neuts (auto) (1.5-7.7) 10^3/ul Absolute Lymphs (auto) (1.0-4.8) 10^3/ul Absolute Monos (auto) (0-0.8) 10^3/ul Absolute Eos (auto) (0-0.6) 10^3/ul Absolute Basos (auto) (0-0.2) 10^3/ul Absolute Nucleated RBC 10^3/ul Nucleated RBC % Sodium (133-145) mmol/L Potassium (3.5-5.0) mmol/L Chloride (101-111) mmol/L Carbon Dioxide (22-32) mmol/L Anion Gap (2-11) mmol/L BUN (6-24) mg/dL Creatinine (0.51-0.95) mg/dL Est GFR ( Amer) (>60) Est GFR (Non-Af Amer) (>60) BUN/Creatinine Ratio (8-20) Glucose (70-100) mg/dL POC Glucose (mg/dL) 93 90 (74-106) mg/dL Lactic Acid (0.5-2.0) mmol/L Calcium (8.6-10.3) mg/dL Magnesium (1.9-2.7) mg/dL Total Bilirubin (0.2-1.0) mg/dL AST (13-39) U/L ALT (7-52) U/L Alkaline Phosphatase (34-104) U/L Troponin I (<0.04) ng/mL Total Protein (6.4-8.9) g/dL Albumin (3.2-5.2) g/dL Globulin (2-4) g/dL Albumin/Globulin Ratio (1-3) TSH (0.34-5.60) mcIU/mL Urine Color Yellow Urine Appearance Cloudy Urine pH 5.0 (5-9) Ur Specific [place] 1.006 L (1.010-1.030) Urine Protein Negative (Negative) Urine Ketones Negative (Negative) Urine Blood 2+ H (Negative) Urine Nitrate Negative (Negative) Urine Bilirubin Negative (Negative) Urine Urobilinogen Negative (Negative) Ur Leukocyte Esterase 3+ H (Negative) Urine WBC (Auto) 2+(11-20/hpf) H (Absent) Urine RBC (Auto) 2+(6-10/hpf) H (Absent) Ur Squamous Epith Cells Present H (Absent) Ur Transition Epith Cell Present H (Absent) Urine Bacteria 1+ H (Absent) Hyaline Casts Present H (Absent) Urine Glucose Negative (Negative) 02/16/17 02/16/17 02/16/17 Range/Units 06:36 07:52 07:57 WBC (3.5-10.8) 10^3/ul RBC (4.0-5.4) 10^6/ul Hgb (12.0-16.0) g/dl Hct (35-47) % MCV (80-97) fL MCH (27-31) pg MCHC (31-36) g/dl RDW (10.5-15) % Plt Count (150-450) 10^3/ul MPV (7.4-10.4) um3 Neut % (Auto) (38-83) % Lymph % (Auto) (25-47) % [place] % (Auto) (1-9) % Eos % (Auto) (0-6) % Baso % (Auto) (0-2) % Absolute Neuts (auto) (1.5-7.7) 10^3/ul Absolute Lymphs (auto) (1.0-4.8) 10^3/ul Absolute Monos (auto) (0-0.8) 10^3/ul Absolute Eos (auto) (0-0.6) 10^3/ul Absolute Basos (auto) (0-0.2) 10^3/ul Absolute Nucleated RBC 10^3/ul Nucleated RBC % Sodium 130 L (133-145) mmol/L Potassium 5.0 (3.5-5.0) mmol/L Chloride 108 (101-111) mmol/L Carbon Dioxide 22 (22-32) mmol/L Anion Gap (2-11) mmol/L BUN 55 H (6-24) mg/dL Creatinine 2.46 H (0.51-0.95) mg/dL Est GFR ( Amer) 24.7 (>60) Est GFR (Non-Af Amer) 19.2 (>60) BUN/Creatinine Ratio 22.4 H (8-20) Glucose 55 L (70-100) mg/dL POC Glucose (mg/dL) 43 L 63 L (74-106) mg/dL Lactic Acid (0.5-2.0) mmol/L Calcium 8.8 (8.6-10.3) mg/dL Magnesium (1.9-2.7) mg/dL Total Bilirubin (0.2-1.0) mg/dL AST (13-39) U/L ALT (7-52) U/L Alkaline Phosphatase (34-104) U/L Troponin I (<0.04) ng/mL Total Protein (6.4-8.9) g/dL Albumin (3.2-5.2) g/dL Globulin (2-4) g/dL Albumin/Globulin Ratio (1-3) TSH (0.34-5.60) mcIU/mL Urine Color Urine Appearance Urine pH (5-9) Ur Specific [place] (1.010-1.030) Urine Protein (Negative) Urine Ketones (Negative) Urine Blood (Negative) Urine Nitrate (Negative) Urine Bilirubin (Negative) Urine Urobilinogen (Negative) Ur Leukocyte Esterase (Negative) Urine WBC (Auto) (Absent) Urine RBC (Auto) (Absent) Ur Squamous Epith Cells (Absent) Ur Transition Epith Cell (Absent) Urine Bacteria (Absent) Hyaline Casts (Absent) Urine Glucose (Negative) Microbiology and Other Data: Microbiology 02/15/17 18:30 Nasal Screen MRSA (PCR)(MARNIE) - Final Nasal Mrsa Negative Assess/Plan/Problems-Billing Assessment: 71 yo F admitted with acute on chronic renal failure, h/o diarrhea for several weeks, chronic leg edema on diuretic at home. - Patient Problems (1) CKD (chronic kidney disease) Comment: baseline creat 1.3-1.6. today still climbing>5 with acute renal failure this hospital stay. FeNa at 0.2 indicates prerenal state. Aguilar placed for u retention on 02/21/17 . today urine appears "muddy" possibly due to ATN, will get UA, check renal US. Appreciate Dr. Archer's recommendations. Possible ATN due to prerenal state. cont IVF GOOD bandages to LE's ordered. Echo shows EF 60%, mod , mod pulm HTN. (2) Lower GI bleeding Comment: Hb fairly stable. Dr. Green consulted-no further w/up recommended. Pt has h/o epigastric pain with extensive GI w/up at [facility], showing H. Pylori neg gastritis. cont Carafate. 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 Suspect bleeding is rectal, not vaginal.Possibly due to hemorrhoids that were noted suring c-scope at [place] CT abd pelvis showed LLQ mass at 7 cm and possible omental caking. (3) Atrial flutter Comment: Continue metoprolol. Pt has /o Mobitz tupe 2 s/p pacer in past today in regular rhythm rectal bleeding resolved. (4) Abdominal mass, left lower quadrant Comment: appreciate Dr. Grigsby's consult. CA125 antigen elevated. s/p CT guided bx on 02/11/17, path pending, but prelim report conclusive of mailgnancy. CT from [place] in 11/09 shows abd fat stranding, but no masses rosaline visualized. (5) Diabetes Comment: Off all hypoglycemics. Fasting FS glucose 117-120's. (6) Chronic diarrhea Comment: Pt reports her normal is 2-3 BM per day. pt's concerned about pt uable to hold her bowels when getting out of shower. Had been ongoing x 4 months. Suspect bowel incontinence more problematic than the frequency of BM's. Daily Kayexalate contributes to loose BM 's Fecal lactoferrin neg and stool cx neg. 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 Pt will need STR. (8) Morbid obesity Comment: BMI 47.1. (9) UTI due to extended-spectrum beta lactamase (ESBL) producing Escherichia coli Comment: ID recommended to complete 5 day course, last dose on 02/24/17 (10) Normocytic anemia Comment: due to CKD (11) DVT prophylaxis Comment: heparin sc Status and Disposition: inpatient
[2017-02-25] MEDS: oxyCODONE TAB* 5 MG TAB PO PRN (12:12)
[2017-02-25] MEDS: Omeprazole CAP* 20 MG PO SCH (12:13)
[2017-02-25] MEDS: Metoprolol Succinate XL TAB* 100 MG PO SCH (12:13)
[2017-02-25] MEDS: Acetaminophen TAB* 325 MG PO SCH ×4 (12:13→21:53)
[2017-02-25] MEDS: Sodium Polystyrene ORAL.SOL* 15 GM/60 ML BTL PO SCH (13:44)
[2017-02-25] MEDS: Zinc Oxide 40% (TOPICAL)* TUBE TOPICAL SCH ×3 (15:37→21:51)
--- NOTE | 2017-02-25 15:42 | RAD ---
Indication: Acute renal failure. Real-time sonography of the kidneys was performed. The right kidney measures 9.5 x 4.8 x 4.1 cm. Minimal fullness of the collecting system is noted. The left kidney is not visualized due to hot body habitus. Evaluation of the urinary bladder demonstrates a volume of 175 mL. The urinary catheter was unclamped although no drainage was obtained. The ureteral jets are not identified. Moderate degree of ascites is noted. IMPRESSION: Fullness of right renal collecting system. Left kidney is nonvisualized.
[2017-02-25] MEDS: Sodium Bicarbonate (ANTACID)* 650 MG TAB PO SCH (18:24)
[2017-02-25] MEDS: Atorvastatin* 10 MG TAB PO SCH (18:25)
[2017-02-25] MEDS: Lactobacillus Acidophilu (GG)* 1 CAP CAP PO SCH (18:31)
[2017-02-25] MEDS: Gabapentin CAP(*) 100 MG PO SCH (21:52)
[2017-02-26] MEDS: NS 0.9% 1000 ML* 1,000 ML IV SCH (05:14)
[2017-02-26] MEDS: Sucralfate SUSP 1 GM/10 ml 10 ML UDC PO SCH ×3 (05:14→17:20)
[2017-02-26] MEDS: Heparin VIAL(*) 5000 UNITS/ML VIAL (FIVE THOUSAND) SUBCUT SCH ×3 (05:14→23:42)
[2017-02-26 06:00] LABS: BUN/Creatinine Ratio 14.4 (8-20); Calcium 8.8 mg/dL (8.6-10.3); EGFR African American 10.4 (>60); EGFR Non-African American 8.1 (>60); Potassium 4.6 mmol/L (3.5-5.0)
[2017-02-26] MEDS ORDERED: Sodium Bicarbonate 8.4% IV* 100 MEQ in D5W 1000 ML BAG* 1,000 ML IVPB SCH (08:00)
[2017-02-26] MEDS: Omeprazole CAP* 20 MG PO SCH (10:17)
[2017-02-26] MEDS: Metoprolol Succinate XL TAB* 100 MG PO SCH (10:18)
[2017-02-26] MEDS: Acetaminophen TAB* 325 MG PO SCH ×2 (10:18→13:31)
[2017-02-26] MEDS: Sodium Bicarbonate (ANTACID)* 650 MG TAB PO SCH ×4 (10:31→17:20)
[2017-02-26] MEDS: Sodium Polystyrene ORAL.SOL* 15 GM/60 ML BTL PO SCH (10:31)
[2017-02-26] MEDS: Zinc Oxide 40% (TOPICAL)* TUBE TOPICAL SCH ×3 (10:33→22:00)
--- NOTE | 2017-02-26 13:09 | PN ---
Subjective Date of Service: 02/26/17 Interval History: Pt feels "OK" today, tearful after a conversation with oncologist and family about the malignancy and renal failure Objective Active Medications: Acetaminophen (Tylenol Tab*) 650 mg PO Q4H PRN PRN Reason: PAIN/INFLAMMATION Last Admin: 02/17/17 02:49 Dose: 650 mg Acetaminophen (Tylenol Tab*) 650 mg PO QID [facility] Last Admin: 02/26/17 10:18 Dose: 650 mg Atorvastatin Calcium (Lipitor*) 10 mg PO QPM [facility] Last Admin: 02/25/17 18:25 Dose: 10 mg Benzonatate (Tessalon Cap*) 200 mg PO TID PRN PRN Reason: COUGH Dextrose (D50w Syringe 50 Ml*) 12.5 gm IV PUSH .FOR FS < 60 - SS PRN PRN Reason: FS < 60 Gabapentin (Neurontin Cap(*)) 100 mg PO BEDTIME [facility] Last Admin: 02/25/17 21:52 Dose: 100 mg Heparin Sodium (Porcine) (Heparin Vial(*)) 5,000 units SUBCUT Q8HR [facility] Last Admin: 02/26/17 05:14 Dose: 5,000 units Sodium Bicarbonate 100 meq/ (Dextrose) 1,100 mls @ 100 mls/hr IVPB Q24H [facility] Last Admin: 02/26/17 09:03 Dose: 100 mls/hr Loperamide HCl (Imodium Cap*) 2 mg PO .SEE DIRECTIONS PRN PRN Reason: DIARRHEA Last Admin: 02/25/17 12:14 Dose: 2 mg Metoprolol Succinate (Toprol Xl Tab*) 100 mg PO DAILY [facility] Last Admin: 02/26/17 10:18 Dose: 100 mg Omeprazole (Prilosec Cap*) 20 mg PO DAILY [facility] Last Admin: 02/26/17 10:17 Dose: 20 mg Oxycodone HCl (Roxycodone Tab*) 5 mg PO Q4H PRN PRN Reason: PAIN Last Admin: 02/25/17 12:12 Dose: 5 mg Simethicone (Mylicon*) 80 mg PO Q6H PRN PRN Reason: DISCOMFORT Sodium Bicarbonate (Sodium Bicarbonate (Antacid)*) 1,300 mg PO AC [facility] Last Admin: 02/26/17 11:59 Dose: 650 mg Sodium Polystyrene Sulfonate (Kayexalate Oral.Yamila*) 15 gm PO EVERY OTHER DAY [facility] Sucralfate (Sucralfate Susp) 1 gm PO 0600,1100,1600,2100 [facility] Last Admin: 02/26/17 11:59 Dose: 1 gm Zinc Oxide (Zinc Oxide 40% (Topical)*) 1 applic TOPICAL TID [facility] Last Admin: 02/26/17 10:33 Dose: Not Given Vital Signs 02/25/17 02/25/17 02/25/17 14:12 16:00 16:16 Temperature 97.8 F Pulse Rate 75 Respiratory 18 20 Rate Blood Pressure 116/46 (mmHg) O2 Sat by Pulse 98 89 Oximetry 02/25/17 02/25/17 02/25/17 19:30 21:52 23:52 Temperature 98.0 F Pulse Rate 72 Respiratory 16 16 16 Rate Blood Pressure 139/53 (mmHg) O2 Sat by Pulse 81 Oximetry 02/26/17 02/26/17 02/26/17 00:04 01:14 01:23 Temperature 97.4 F Pulse Rate 75 Respiratory 16 18 Rate Blood Pressure 131/58 (mmHg) O2 Sat by Pulse 98 94 Oximetry 02/26/17 02/26/17 02/26/17 04:05 08:21 08:53 Temperature 97.8 F Pulse Rate 77 101 Respiratory 18 16 Rate Blood Pressure 125/58 124/66 (mmHg) O2 Sat by Pulse 98 97 96 Oximetry Oxygen Devices in Use Now: None Appearance: 71 yo f in nAD, AAOx2 Eyes: No Scleral Icterus, PERRLA Ears/Nose/Mouth/Throat: NL Teeth, Lips, Gums, Mucous Membranes Moist Neck: NL Appearance and Movements; NL JVP, Trachea Midline Respiratory: Symmetrical Chest Expansion and Respiratory Effort, - - crackles at b/l bases Cardiovascular: NL Sounds; No Murmurs; No JVD, RRR Abdominal: - - moderate ascites noted, soft, NT, BS+ Lymphatic: No Cervical Adenopathy Extremities: No Clubbing, Cyanosis Skin: No Nodules or Sclerosis, - - +2 pitting b/l LE's edema, ecchymoses on b/l calves Neurological: - - generalized weakness, no focal deficit Result Diagrams: 02/23/17 05:48 02/26/17 05:05 Additional Lab and Data: Lab Results 02/15/17 02/15/17 02/15/17 Range/Units 13:53 13:53 13:53 WBC 8.1 (3.5-10.8) 10^3/ul RBC 3.74 L (4.0-5.4) 10^6/ul Hgb 10.9 L (12.0-16.0) g/dl Hct 34 L (35-47) % MCV 91 (80-97) fL MCH 29 (27-31) pg MCHC 32 (31-36) g/dl RDW 15 (10.5-15) % Plt Count 252 (150-450) 10^3/ul MPV 7 L (7.4-10.4) um3 Neut % (Auto) 83.7 H (38-83) % Lymph % (Auto) 5.9 L (25-47) % [place] % (Auto) 8.5 (1-9) % Eos % (Auto) 1.1 (0-6) % Baso % (Auto) 0.8 (0-2) % Absolute Neuts (auto) 6.8 (1.5-7.7) 10^3/ul Absolute Lymphs (auto) 0.5 L (1.0-4.8) 10^3/ul Absolute Monos (auto) 0.7 (0-0.8) 10^3/ul Absolute Eos (auto) 0.1 (0-0.6) 10^3/ul Absolute Basos (auto) 0.1 (0-0.2) 10^3/ul Absolute Nucleated RBC 0 10^3/ul Nucleated RBC % 0 Sodium 131 L (133-145) mmol/L Potassium 5.5 H (3.5-5.0) mmol/L Chloride 101 (101-111) mmol/L Carbon Dioxide 23 (22-32) mmol/L Anion Gap 7 (2-11) mmol/L BUN 53 H (6-24) mg/dL Creatinine 2.60 H (0.51-0.95) mg/dL Est GFR ( Amer) 23.2 (>60) Est GFR (Non-Af Amer) 18.0 (>60) BUN/Creatinine Ratio 20.4 H (8-20) Glucose 157 H (70-100) mg/dL POC Glucose (mg/dL) (74-106) mg/dL Lactic Acid 1.1 (0.5-2.0) mmol/L Calcium 9.3 (8.6-10.3) mg/dL Magnesium 1.9 (1.9-2.7) mg/dL Total Bilirubin 0.40 (0.2-1.0) mg/dL AST 15 (13-39) U/L ALT 10 (7-52) U/L Alkaline Phosphatase 85 (34-104) U/L Troponin I 0.01 (<0.04) ng/mL Total Protein 6.6 (6.4-8.9) g/dL Albumin 3.2 (3.2-5.2) g/dL Globulin 3.4 (2-4) g/dL Albumin/Globulin Ratio 0.9 L (1-3) TSH 2.39 (0.34-5.60) mcIU/mL Urine Color Urine Appearance Urine pH (5-9) Ur Specific [place] (1.010-1.030) Urine Protein (Negative) Urine Ketones (Negative) Urine Blood (Negative) Urine Nitrate (Negative) Urine Bilirubin (Negative) Urine Urobilinogen (Negative) Ur Leukocyte Esterase (Negative) Urine WBC (Auto) (Absent) Urine RBC (Auto) (Absent) Ur Squamous Epith Cells (Absent) Ur Transition Epith Cell (Absent) Urine Bacteria (Absent) Hyaline Casts (Absent) Urine Glucose (Negative) 02/15/17 02/15/17 02/15/17 Range/Units 15:35 17:48 22:18 WBC (3.5-10.8) 10^3/ul RBC (4.0-5.4) 10^6/ul Hgb (12.0-16.0) g/dl Hct (35-47) % MCV (80-97) fL MCH (27-31) pg MCHC (31-36) g/dl RDW (10.5-15) % Plt Count (150-450) 10^3/ul MPV (7.4-10.4) um3 Neut % (Auto) (38-83) % Lymph % (Auto) (25-47) % [place] % (Auto) (1-9) % Eos % (Auto) (0-6) % Baso % (Auto) (0-2) % Absolute Neuts (auto) (1.5-7.7) 10^3/ul Absolute Lymphs (auto) (1.0-4.8) 10^3/ul Absolute Monos (auto) (0-0.8) 10^3/ul Absolute Eos (auto) (0-0.6) 10^3/ul Absolute Basos (auto) (0-0.2) 10^3/ul Absolute Nucleated RBC 10^3/ul Nucleated RBC % Sodium (133-145) mmol/L Potassium (3.5-5.0) mmol/L Chloride (101-111) mmol/L Carbon Dioxide (22-32) mmol/L Anion Gap (2-11) mmol/L BUN (6-24) mg/dL Creatinine (0.51-0.95) mg/dL Est GFR ( Amer) (>60) Est GFR (Non-Af Amer) (>60) BUN/Creatinine Ratio (8-20) Glucose (70-100) mg/dL POC Glucose (mg/dL) 93 90 (74-106) mg/dL Lactic Acid (0.5-2.0) mmol/L Calcium (8.6-10.3) mg/dL Magnesium (1.9-2.7) mg/dL Total Bilirubin (0.2-1.0) mg/dL AST (13-39) U/L ALT (7-52) U/L Alkaline Phosphatase (34-104) U/L Troponin I (<0.04) ng/mL Total Protein (6.4-8.9) g/dL Albumin (3.2-5.2) g/dL Globulin (2-4) g/dL Albumin/Globulin Ratio (1-3) TSH (0.34-5.60) mcIU/mL Urine Color Yellow Urine Appearance Cloudy Urine pH 5.0 (5-9) Ur Specific [place] 1.006 L (1.010-1.030) Urine Protein Negative (Negative) Urine Ketones Negative (Negative) Urine Blood 2+ H (Negative) Urine Nitrate Negative (Negative) Urine Bilirubin Negative (Negative) Urine Urobilinogen Negative (Negative) Ur Leukocyte Esterase 3+ H (Negative) Urine WBC (Auto) 2+(11-20/hpf) H (Absent) Urine RBC (Auto) 2+(6-10/hpf) H (Absent) Ur Squamous Epith Cells Present H (Absent) Ur Transition Epith Cell Present H (Absent) Urine Bacteria 1+ H (Absent) Hyaline Casts Present H (Absent) Urine Glucose Negative (Negative) 02/16/17 02/16/17 02/16/17 Range/Units 06:36 07:52 07:57 WBC (3.5-10.8) 10^3/ul RBC (4.0-5.4) 10^6/ul Hgb (12.0-16.0) g/dl Hct (35-47) % MCV (80-97) fL MCH (27-31) pg MCHC (31-36) g/dl RDW (10.5-15) % Plt Count (150-450) 10^3/ul MPV (7.4-10.4) um3 Neut % (Auto) (38-83) % Lymph % (Auto) (25-47) % [place] % (Auto) (1-9) % Eos % (Auto) (0-6) % Baso % (Auto) (0-2) % Absolute Neuts (auto) (1.5-7.7) 10^3/ul Absolute Lymphs (auto) (1.0-4.8) 10^3/ul Absolute Monos (auto) (0-0.8) 10^3/ul Absolute Eos (auto) (0-0.6) 10^3/ul Absolute Basos (auto) (0-0.2) 10^3/ul Absolute Nucleated RBC 10^3/ul Nucleated RBC % Sodium 130 L (133-145) mmol/L Potassium 5.0 (3.5-5.0) mmol/L Chloride 108 (101-111) mmol/L Carbon Dioxide 22 (22-32) mmol/L Anion Gap (2-11) mmol/L BUN 55 H (6-24) mg/dL Creatinine 2.46 H (0.51-0.95) mg/dL Est GFR ( Amer) 24.7 (>60) Est GFR (Non-Af Amer) 19.2 (>60) BUN/Creatinine Ratio 22.4 H (8-20) Glucose 55 L (70-100) mg/dL POC Glucose (mg/dL) 43 L 63 L (74-106) mg/dL Lactic Acid (0.5-2.0) mmol/L Calcium 8.8 (8.6-10.3) mg/dL Magnesium (1.9-2.7) mg/dL Total Bilirubin (0.2-1.0) mg/dL AST (13-39) U/L ALT (7-52) U/L Alkaline Phosphatase (34-104) U/L Troponin I (<0.04) ng/mL Total Protein (6.4-8.9) g/dL Albumin (3.2-5.2) g/dL Globulin (2-4) g/dL Albumin/Globulin Ratio (1-3) TSH (0.34-5.60) mcIU/mL Urine Color Urine Appearance Urine pH (5-9) Ur Specific [place] (1.010-1.030) Urine Protein (Negative) Urine Ketones (Negative) Urine Blood (Negative) Urine Nitrate (Negative) Urine Bilirubin (Negative) Urine Urobilinogen (Negative) Ur Leukocyte Esterase (Negative) Urine WBC (Auto) (Absent) Urine RBC (Auto) (Absent) Ur Squamous Epith Cells (Absent) Ur Transition Epith Cell (Absent) Urine Bacteria (Absent) Hyaline Casts (Absent) Urine Glucose (Negative) Microbiology and Other Data: Microbiology 02/15/17 18:30 Nasal Screen MRSA (PCR)(MARNIE) - Final Nasal Mrsa Negative Assess/Plan/Problems-Billing Assessment: 71 yo F admitted with acute on chronic renal failure, h/o diarrhea for several weeks, chronic leg edema on diuretic at home. - Patient Problems (1) CKD (chronic kidney disease) Comment: baseline creat 1.3-1.6. today still climbing>5. Cont Kayexalate QOD for hypokalemia. D/w Dr. Archer, rate of creat increase has slowed down, but pt developed metabolic acidosis that needs to be corrected with Na bicarb PO and IV gtt. Possible ATN due to prerenal state. FeNa 0.1. cont IVF GOOD bandages to LE's applied. Echo shows EF 60%, mod , mod pulm HTN. (2) Lower GI bleeding Comment: Hb fairly stable. Dr. Green consulted-no further w/up recommended. Pt has h/o epigastric pain with extensive GI w/up at [facility], showing H. Pylori neg gastritis. cont Carafate. DISTILLERY MANAGER consult appreciated. Suspect bleeding is rectal, not vaginal.Possibly due to hemorrhoids that were noted suring c-scope at [place] CT abd pelvis showed LLQ mass at 7 cm and possible omental caking. (3) Atrial flutter Comment: Continue metoprolol. Pt has h/o Mobitz tupe 2 s/p pacer in past today in regular rhythm rectal bleeding resolved. (4) Abdominal mass, left lower quadrant Comment: appreciate Dr. Grigsby's consult. CA125 antigen elevated. s/p CT guided bx on 02/11/17, path prelim report conclusive of mailgnancy. CT from [place] in 11/09 shows abd fat stranding, but no masses rosaline visualized. Had a conferece call with daughter Mirna, pt's hope and Dr. Coombs. Family was informed that the malignancy is not fully identified yet and that additional path stains are pending and will be avaliable in the next 2 days. If the malignancy is not easily treatable, pt may not be a candidate for chemo and then hospice will be offered. (5) Diabetes Comment: Off all hypoglycemics. Fasting FS glucose 117-120's. (6) Chronic diarrhea Comment: Pt reports her normal is 2-3 BM per day. Cont Imodium Fecal lactoferrin neg and stool cx neg. 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 Pt will need STR. (8) Morbid obesity Comment: BMI 47.1. (9) UTI due to extended-spectrum beta lactamase (ESBL) producing Escherichia coli Comment: ID recommended to complete 5 day course, last dose on 02/24/17 (10) Normocytic anemia Comment: due to CKD (11) DVT prophylaxis Comment: heparin sc Status and Disposition: inpatient
[2017-02-26 16:03] LABS: BUN/Creatinine Ratio 14.3 (8-20); Calcium 8.5 mg/dL (8.6-10.3); EGFR African American 10.5 (>60); EGFR Non-African American 8.1 (>60); Potassium 4.5 mmol/L (3.5-5.0)
[2017-02-26] MEDS: Atorvastatin* 10 MG TAB PO SCH (17:21)
[2017-02-26] MEDS: Sodium Bicarbonate 8.4% IV* 100 MEQ in D5W 1000 ML BAG* 1,000 ML IVPB SCH (21:13)
[2017-02-26] MEDS: Gabapentin CAP(*) 100 MG PO SCH (23:36)
[2017-02-27] MEDS: Heparin VIAL(*) 5000 UNITS/ML VIAL (FIVE THOUSAND) SUBCUT SCH ×3 (06:01→23:02)
[2017-02-27 06:08] LABS: Hematocrit 29 % (35-47); Hemoglobin 9.4 g/dl (12.0-16.0); Mean Corpuscular HGB Conc 33 g/dl (31-36); Mean Corpuscular Hemoglobin 31 pg (27-31); Mean Corpuscular Volume 93 fL (80-97); Mean Platelet Volume 7 um3 (7.4-10.4); Red Blood Count 3.08 10^6/ul (4.0-5.4); Red Cell Distribution Width 17 % (10.5-15); White Blood Count 8.6 10^3/ul (3.5-10.8)
[2017-02-27 06:19] LABS: BUN/Creatinine Ratio 14.4 (8-20); Calcium 8.5 mg/dL (8.6-10.3); EGFR African American 10.3 (>60); Potassium 4.3 mmol/L (3.5-5.0)
[2017-02-27] MEDS: Sodium Bicarbonate (ANTACID)* 650 MG TAB PO SCH ×3 (07:56→18:27)
[2017-02-27] MEDS: Omeprazole CAP* 20 MG PO SCH (08:01)
[2017-02-27] MEDS: Zinc Oxide 40% (TOPICAL)* TUBE TOPICAL SCH ×3 (08:06→23:04)
--- NOTE | 2017-02-27 08:31 | PN ---
Subjective Date of Service: 02/27/17 Interval History: Pt c/o "my bottom is sore". Pt also denies abd pain. Again has had low UO in the past 24H Objective Active Medications: Acetaminophen (Tylenol Tab*) 650 mg PO Q4H PRN PRN Reason: PAIN/INFLAMMATION Last Admin: 02/17/17 02:49 Dose: 650 mg Atorvastatin Calcium (Lipitor*) [address] [facility] Last Admin: 02/26/17 17:21 Dose: 10 mg Benzonatate (Tessalon Cap*) 200 mg PO TID PRN PRN Reason: COUGH Dextrose (D50w Syringe 50 Ml*) 12.5 gm IV PUSH .FOR FS < 60 - SS PRN PRN Reason: FS < 60 Gabapentin (Neurontin Cap(*)) [address] [facility] Last Admin: 02/26/17 23:36 Dose: 100 mg Heparin Sodium (Porcine) (Heparin Vial(*)) 5,[address] [facility] Last Admin: 02/27/17 06:01 Dose: 5,000 units Sodium Bicarbonate 100 meq/ (Dextrose) 1,100 mls @ 100 mls/hr IVPB Q11H [facility] Last Admin: 02/26/17 21:13 Dose: 100 mls/hr Loperamide HCl (Imodium Cap*) 2 mg PO .SEE DIRECTIONS PRN PRN Reason: DIARRHEA Last Admin: 02/25/17 12:14 Dose: 2 mg Metoprolol Tartrate (Lopressor Tab*) [address] [facility] Omeprazole (Prilosec Cap*) [address] [facility] Last Admin: 02/27/17 08:01 Dose: 20 mg Oxycodone HCl (Roxycodone Tab*) 5 mg PO Q4H PRN PRN Reason: PAIN Last Admin: 02/25/17 12:12 Dose: 5 mg Simethicone (Mylicon*) 80 mg PO Q6H PRN PRN Reason: DISCOMFORT Sodium Bicarbonate (Sodium Bicarbonate (Antacid)*) 1,[address] [facility] Last Admin: 02/27/17 07:56 Dose: 1,300 mg Sodium Polystyrene Sulfonate (Kayexalate Oral.Ymaila*) 15 gm PO EVERY OTHER DAY [facility] Zinc Oxide (Zinc Oxide 40% (Topical)*) [address] [facility] Last Admin: 02/27/17 08:06 Dose: 1 applic Vital Signs 02/26/17 02/26/17 02/26/17 08:53 15:40 20:00 Temperature 97.8 F Pulse Rate 73 Respiratory 16 19 Rate Blood Pressure 119/50 (mmHg) O2 Sat by Pulse 96 99 Oximetry 02/26/17 02/26/17 02/26/17 20:12 23:36 23:38 Temperature 98.2 F 98.0 F Pulse Rate 75 75 Respiratory 16 20 17 Rate Blood Pressure 127/50 146/51 (mmHg) O2 Sat by Pulse 98 99 Oximetry 02/27/17 02/27/17 02/27/17 00:00 01:36 02:08 Temperature Pulse Rate Respiratory 18 Rate Blood Pressure (mmHg) O2 Sat by Pulse 99 99 Oximetry 02/27/17 02/27/17 02/27/17 04:14 07:32 08:00 Temperature 98.3 F Pulse Rate 75 75 Respiratory 18 16 Rate Blood Pressure 124/54 122/46 (mmHg) O2 Sat by Pulse 100 100 97 Oximetry Oxygen Devices in Use Now: None Appearance: 71 yo F in nAD, AAOx2, mild lethargy noted, poor historian Eyes: No Scleral Icterus, PERRLA Ears/Nose/Mouth/Throat: NL Teeth, Lips, Gums, Mucous Membranes Moist Neck: NL Appearance and Movements; NL JVP, Trachea Midline Respiratory: Symmetrical Chest Expansion and Respiratory Effort, Clear to Auscultation Cardiovascular: NL Sounds; No Murmurs; No JVD, RRR Abdominal: - - moderate ascites, soft, NT, BS+ Lymphatic: No Cervical Adenopathy Extremities: No Clubbing, Cyanosis, - - +2 pitting pedal edema b/l Skin: - - scattered ecchymoses on b/l LE's Neurological: - - [id number] weakness Result Diagrams: 02/27/17 05:56 02/27/17 05:56 Additional Lab and Data: Lab Results 02/15/17 02/15/17 02/15/17 Range/Units 13:53 13:53 13:53 WBC 8.1 (3.5-10.8) 10^3/ul RBC 3.74 L (4.0-5.4) 10^6/ul Hgb 10.9 L (12.0-16.0) g/dl Hct 34 L (35-47) % MCV 91 (80-97) fL MCH 29 (27-31) pg MCHC 32 (31-36) g/dl RDW 15 (10.5-15) % Plt Count 252 (150-450) 10^3/ul MPV 7 L (7.4-10.4) um3 Neut % (Auto) 83.7 H (38-83) % Lymph % (Auto) 5.9 L (25-47) % [place] % (Auto) 8.5 (1-9) % Eos % (Auto) 1.1 (0-6) % Baso % (Auto) 0.8 (0-2) % Absolute Neuts (auto) 6.8 (1.5-7.7) 10^3/ul Absolute Lymphs (auto) 0.5 L (1.0-4.8) 10^3/ul Absolute Monos (auto) 0.7 (0-0.8) 10^3/ul Absolute Eos (auto) 0.1 (0-0.6) 10^3/ul Absolute Basos (auto) 0.1 (0-0.2) 10^3/ul Absolute Nucleated RBC 0 10^3/ul Nucleated RBC % 0 Sodium 131 L (133-145) mmol/L Potassium 5.5 H (3.5-5.0) mmol/L Chloride 101 (101-111) mmol/L Carbon Dioxide 23 (22-32) mmol/L Anion Gap 7 (2-11) mmol/L BUN 53 H (6-24) mg/dL Creatinine 2.60 H (0.51-0.95) mg/dL Est GFR ( Amer) 23.2 (>60) Est GFR (Non-Af Amer) 18.0 (>60) BUN/Creatinine Ratio 20.4 H (8-20) Glucose 157 H (70-100) mg/dL POC Glucose (mg/dL) (74-106) mg/dL Lactic Acid 1.1 (0.5-2.0) mmol/L Calcium 9.3 (8.6-10.3) mg/dL Magnesium 1.9 (1.9-2.7) mg/dL Total Bilirubin 0.40 (0.2-1.0) mg/dL AST 15 (13-39) U/L ALT 10 (7-52) U/L Alkaline Phosphatase 85 (34-104) U/L Troponin I 0.01 (<0.04) ng/mL Total Protein 6.6 (6.4-8.9) g/dL Albumin 3.2 (3.2-5.2) g/dL Globulin 3.4 (2-4) g/dL Albumin/Globulin Ratio 0.9 L (1-3) TSH 2.39 (0.34-5.60) mcIU/mL Urine Color Urine Appearance Urine pH (5-9) Ur Specific [place] (1.010-1.030) Urine Protein (Negative) Urine Ketones (Negative) Urine Blood (Negative) Urine Nitrate (Negative) Urine Bilirubin (Negative) Urine Urobilinogen (Negative) Ur Leukocyte Esterase (Negative) Urine WBC (Auto) (Absent) Urine RBC (Auto) (Absent) Ur Squamous Epith Cells (Absent) Ur Transition Epith Cell (Absent) Urine Bacteria (Absent) Hyaline Casts (Absent) Urine Glucose (Negative) 02/15/17 02/15/17 02/15/17 Range/Units 15:35 17:48 22:18 WBC (3.5-10.8) 10^3/ul RBC (4.0-5.4) 10^6/ul Hgb (12.0-16.0) g/dl Hct (35-47) % MCV (80-97) fL MCH (27-31) pg MCHC (31-36) g/dl RDW (10.5-15) % Plt Count (150-450) 10^3/ul MPV (7.4-10.4) um3 Neut % (Auto) (38-83) % Lymph % (Auto) (25-47) % [place] % (Auto) (1-9) % Eos % (Auto) (0-6) % Baso % (Auto) (0-2) % Absolute Neuts (auto) (1.5-7.7) 10^3/ul Absolute Lymphs (auto) (1.0-4.8) 10^3/ul Absolute Monos (auto) (0-0.8) 10^3/ul Absolute Eos (auto) (0-0.6) 10^3/ul Absolute Basos (auto) (0-0.2) 10^3/ul Absolute Nucleated RBC 10^3/ul Nucleated RBC % Sodium (133-145) mmol/L Potassium (3.5-5.0) mmol/L Chloride (101-111) mmol/L Carbon Dioxide (22-32) mmol/L Anion Gap (2-11) mmol/L BUN (6-24) mg/dL Creatinine (0.51-0.95) mg/dL Est GFR ( Amer) (>60) Est GFR (Non-Af Amer) (>60) BUN/Creatinine Ratio (8-20) Glucose (70-100) mg/dL POC Glucose (mg/dL) 93 90 (74-106) mg/dL Lactic Acid (0.5-2.0) mmol/L Calcium (8.6-10.3) mg/dL Magnesium (1.9-2.7) mg/dL Total Bilirubin (0.2-1.0) mg/dL AST (13-39) U/L ALT (7-52) U/L Alkaline Phosphatase (34-104) U/L Troponin I (<0.04) ng/mL Total Protein (6.4-8.9) g/dL Albumin (3.2-5.2) g/dL Globulin (2-4) g/dL Albumin/Globulin Ratio (1-3) TSH (0.34-5.60) mcIU/mL Urine Color Yellow Urine Appearance Cloudy Urine pH 5.0 (5-9) Ur Specific [place] 1.006 L (1.010-1.030) Urine Protein Negative (Negative) Urine Ketones Negative (Negative) Urine Blood 2+ H (Negative) Urine Nitrate Negative (Negative) Urine Bilirubin Negative (Negative) Urine Urobilinogen Negative (Negative) Ur Leukocyte Esterase 3+ H (Negative) Urine WBC (Auto) 2+(11-20/hpf) H (Absent) Urine RBC (Auto) 2+(6-10/hpf) H (Absent) Ur Squamous Epith Cells Present H (Absent) Ur Transition Epith Cell Present H (Absent) Urine Bacteria 1+ H (Absent) Hyaline Casts Present H (Absent) Urine Glucose Negative (Negative) 02/16/17 02/16/17 02/16/17 Range/Units 06:36 07:52 07:57 WBC (3.5-10.8) 10^3/ul RBC (4.0-5.4) 10^6/ul Hgb (12.0-16.0) g/dl Hct (35-47) % MCV (80-97) fL MCH (27-31) pg MCHC (31-36) g/dl RDW (10.5-15) % Plt Count (150-450) 10^3/ul MPV (7.4-10.4) um3 Neut % (Auto) (38-83) % Lymph % (Auto) (25-47) % [place] % (Auto) (1-9) % Eos % (Auto) (0-6) % Baso % (Auto) (0-2) % Absolute Neuts (auto) (1.5-7.7) 10^3/ul Absolute Lymphs (auto) (1.0-4.8) 10^3/ul Absolute Monos (auto) (0-0.8) 10^3/ul Absolute Eos (auto) (0-0.6) 10^3/ul Absolute Basos (auto) (0-0.2) 10^3/ul Absolute Nucleated RBC 10^3/ul Nucleated RBC % Sodium 130 L (133-145) mmol/L Potassium 5.0 (3.5-5.0) mmol/L Chloride 108 (101-111) mmol/L Carbon Dioxide 22 (22-32) mmol/L Anion Gap (2-11) mmol/L BUN 55 H (6-24) mg/dL Creatinine 2.46 H (0.51-0.95) mg/dL Est GFR ( Amer) 24.7 (>60) Est GFR (Non-Af Amer) 19.2 (>60) BUN/Creatinine Ratio 22.4 H (8-20) Glucose 55 L (70-100) mg/dL POC Glucose (mg/dL) 43 L 63 L (74-106) mg/dL Lactic Acid (0.5-2.0) mmol/L Calcium 8.8 (8.6-10.3) mg/dL Magnesium (1.9-2.7) mg/dL Total Bilirubin (0.2-1.0) mg/dL AST (13-39) U/L ALT (7-52) U/L Alkaline Phosphatase (34-104) U/L Troponin I (<0.04) ng/mL Total Protein (6.4-8.9) g/dL Albumin (3.2-5.2) g/dL Globulin (2-4) g/dL Albumin/Globulin Ratio (1-3) TSH (0.34-5.60) mcIU/mL Urine Color Urine Appearance Urine pH (5-9) Ur Specific [place] (1.010-1.030) Urine Protein (Negative) Urine Ketones (Negative) Urine Blood (Negative) Urine Nitrate (Negative) Urine Bilirubin (Negative) Urine Urobilinogen (Negative) Ur Leukocyte Esterase (Negative) Urine WBC (Auto) (Absent) Urine RBC (Auto) (Absent) Ur Squamous Epith Cells (Absent) Ur Transition Epith Cell (Absent) Urine Bacteria (Absent) Hyaline Casts (Absent) Urine Glucose (Negative) Microbiology and Other Data: Microbiology 02/15/17 18:30 Nasal Screen MRSA (PCR)(MARNIE) - Final Nasal Mrsa Negative Assess/Plan/Problems-Billing Assessment: 71 yo F admitted with acute on chronic renal failure, h/o diarrhea for several weeks, chronic leg edema on diuretic at home. - Patient Problems (1) CKD (chronic kidney disease) Comment: baseline creat 1.3-1.6. today still climbing>5. Had been on Kayexalate for hyperkalemia, but did not need it tin the past 3-4 days. will stop. D/w Dr. Arhcer, rate of creat increase has slowed down, but pt developed metabolic acidosis that needs to be corrected with Na bicarb PO and IV gtt that was started on 02/26/17 Possible ATN due to prerenal state. FeNa 0.1. cont IVF GOOD bandages to LE's applied. Echo shows EF 60%, mod , mod pulm HTN. (2) Lower GI bleeding Comment: Hb fairly stable.Resolved. suspect hemorrhoidal. Dr. Green consulted-no further w/up recommended. Pt has h/o epigastric pain with extensive GI w/up at [facility], showing H. Pylori neg gastritis. cont Carafate. D[employer] OPER[employer] consult appreciated. Suspect bleeding is rectal, not vaginal.Possibly due to hemorrhoids that were noted suring c-scope at [place] CT abd pelvis showed LLQ mass at 7 cm and possible omental caking. (3) Atrial flutter Comment: Continue metoprolol. Pt has h/o Mobitz tupe 2 s/p pacer in past today in regular rhythm rectal bleeding resolved. (4) Abdominal mass, left lower quadrant Comment: appreciate Dr. Grigsby's consult. CA125 antigen elevated. s/p CT guided bx on 02/11/17, path prelim report conclusive of mailgnancy. CT from [place] in 11/09 shows abd fat stranding, but no masses rosaline visualized. Had a conferece call with daughter Mirna, pt's and Dr. Grigsby on . Family was informed that the malignancy is not fully identified yet and that additional path stains are pending and will be avaliable in the next 2 days. If the malignancy is not easily treatable, pt may not be a candidate for chemo and then hospice will be offered. (5) Diabetes Comment: Off all hypoglycemics. Fasting FS glucose 117-120's. (6) Chronic diarrhea Comment: Pt reports her normal is 2-3 BM per day. Cont Imodium Fecal lactoferrin neg and stool cx neg. 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 Pt will need STR. (8) Morbid obesity Comment: BMI 47.1. (9) UTI due to extended-spectrum beta lactamase (ESBL) producing Escherichia coli Comment: ID recommended to complete 5 day course, last dose on 02/24/17 (10) Normocytic anemia Comment: due to CKD (11) DVT prophylaxis Comment: heparin sc Status and Disposition: inpatient
[2017-02-27] MEDS ORDERED: Sodium Polystyrene ORAL.SOL* 15 GM/60 ML BTL PO SCH (09:00)
[2017-02-27] MEDS: Sodium Bicarbonate 8.4% IV* 100 MEQ in D5W 1000 ML BAG* 1,000 ML IVPB SCH ×2 (10:25→23:16)
[2017-02-27] MEDS: Metoprolol Tartrate TAB* 50 mg PO SCH ×2 (10:47→23:03)
[2017-02-27] MEDS: oxyCODONE TAB* 5 MG TAB PO PRN (10:47)
--- NOTE | 2017-02-27 15:48 | RAD ---
INDICATION: Abdominal mass. Evaluate for malignancy. COMPARISON: CT abdomen pelvis February 19, 2017 TECHNIQUE: Noncontrast axial source images were obtained from the thoracic inlet to the hemidiaphragms. Coronal and sagittal reconstructed images were acquired. The visualized neck to include the thyroid appear normal. Chest wall: There are no acute abnormalities of the bony thorax or chest wall. There is left-sided cardiac pacemaker There is no supraclavicular, infraclavicular, or axillary lymphadenopathy. Lungs : There are areas of peripheral parenchymal scarring bilaterally. There are no discrete lung masses.. Cardiomediastinal structures: The heart is normal in size. There is pacemaker artifact There is no pericardial effusion. There is no evidence of aortic aneurysm or dissection. The pulmonary vessels appear normal. There is no mediastinal or hilar adenopathy. Evaluation is limited without venous contrast. The esophagus appears normal. Pleura : There are no pleural-based masses or effusions. Other: There is ascites with mesenteric edema nodularity. There is also anasarca. There is a porcelain gallbladder. These findings were described on the earlier CT of the abdomen and pelvis.. IMPRESSION: NO EVIDENCE OF A LUNG MASS OR DEFINITIVE ADENOPATHY in the chest
[2017-02-27] MEDS: Atorvastatin* 10 MG TAB PO SCH (18:27)
[2017-02-27] MEDS: Gabapentin CAP(*) 100 MG PO SCH (23:03)
[2017-02-28] MEDS: Heparin VIAL(*) 5000 UNITS/ML VIAL (FIVE THOUSAND) SUBCUT SCH ×3 (05:14→21:11)
[2017-02-28 05:48] LABS: Hematocrit 32 % (35-47); Mean Corpuscular HGB Conc 32 g/dl (31-36); Mean Corpuscular Hemoglobin 30 pg (27-31); Mean Corpuscular Volume 96 fL (80-97); Mean Platelet Volume 8 um3 (7.4-10.4); Red Cell Distribution Width 17 % (10.5-15)
[2017-02-28 06:05] LABS: BUN/Creatinine Ratio 14.5 (8-20); Calcium 8.5 mg/dL (8.6-10.3); EGFR African American 10.5 (>60); EGFR Non-African American 8.1 (>60); Potassium 4.4 mmol/L (3.5-5.0)
[2017-02-28] MEDS: Sodium Bicarbonate (ANTACID)* 650 MG TAB PO SCH ×3 (08:50→18:58)
[2017-02-28] MEDS: Omeprazole CAP* 20 MG PO SCH (08:51)
[2017-02-28] MEDS: Metoprolol Tartrate TAB* 50 mg PO SCH ×2 (08:51→21:02)
[2017-02-28] MEDS ORDERED: Sodium Polystyrene ORAL.SOL* 15 GM/60 ML BTL PO SCH (09:00)
--- NOTE | 2017-02-28 09:36 | PN ---
Subjective Date of Service: 02/28/17 Interval History: Patient seen and examined at bedside. Denies fever, chills, shortness of breath , chest discomfort, V/D. Pt reports nausea today, but is eating toast. Pt states that she has not been out of bed yet today. Family History: Unchanged from Admission Social History: Unchanged from Admission Past Medical History: Unchanged from Admission Objective Active Medications: Acetaminophen (Tylenol Tab*) 650 mg PO Q4H PRN Reason: PAIN/INFLAMMATION Atorvastatin Calcium (Lipitor*) 10 mg PO QPM YIMI Benzonatate (Tessalon Cap*) 200 mg PO TID PRN Reason: COUGH Dextrose (D50w Syringe 50 Ml*) 12.5 gm IV PUSH .FOR FS < 60 - SS PRN Reason: FS < 60 Gabapentin (Neurontin Cap(*)) 100 mg PO BEDTIME YIMI Heparin Sodium (Porcine) (Heparin Vial(*)) 5,000 units SUBCUT Q8HR YIMI Sodium Bicarbonate 100 meq/ (Dextrose) 1,100 mls @ 100 mls/hr IVPB Q11H YIMI Loperamide HCl (Imodium Cap*) 2 mg PO .SEE DIRECTIONS PRN Reason: DIARRHEA Metoprolol Tartrate (Lopressor Tab*) 50 mg PO Q12HR YIMI Omeprazole (Prilosec Cap*) 20 mg PO DAILY YIMI Oxycodone HCl (Roxycodone Tab*) 5 mg PO Q4H PRN Reason: PAIN Simethicone (Mylicon*) 80 mg PO Q6H PRN Reason: DISCOMFORT Sodium Bicarbonate (Sodium Bicarbonate (Antacid)*) 1,300 mg PO AC YIMI Zinc Oxide (Zinc Oxide 40% (Topical)*) 1 applic TOPICAL TID [facility] Vital Signs 02/27/17 02/27/17 02/27/17 10:47 12:42 16:00 Temperature Pulse Rate Respiratory 18 16 Rate Blood Pressure (mmHg) O2 Sat by Pulse 96 Oximetry 02/27/17 02/27/17 02/27/17 16:07 20:00 22:59 Temperature 98.0 F 97.9 F Pulse Rate 76 113 Respiratory 17 18 16 Rate Blood Pressure 140/49 134/40 (mmHg) O2 Sat by Pulse 96 92 Oximetry 02/27/17 02/27/17 02/28/17 23:03 23:45 00:45 Temperature 98.2 F Pulse Rate 74 Respiratory 18 18 Rate Blood Pressure 126/38 (mmHg) O2 Sat by Pulse 100 92 Oximetry 02/28/17 02/28/17 02/28/17 01:03 03:53 08:02 Temperature 98.3 F 97.9 F Pulse Rate 75 81 Respiratory 18 18 15 Rate Blood Pressure 129/45 148/47 (mmHg) O2 Sat by Pulse 100 80 Oximetry Oxygen Devices in Use Now: None Appearance: NAD, laying in bed Ears/Nose/Mouth/Throat: Mucous Membranes Moist Respiratory: Symmetrical Chest Expansion and Respiratory Effort, Clear to Auscultation Cardiovascular: NL Sounds; No Murmurs; No JVD, RRR Abdominal: NL Sounds; No Tenderness; No Distention Extremities: No Edema Skin: No Rash or Ulcers Neurological: Alert and Oriented x 3 Lines/Tubes/Other Access: Clean, Dry and Intact Peripheral IV - site benign Nutrition: Taking PO's Result Diagrams: 02/28/17 04:37 02/28/17 04:37 Additional Lab and Data: Microbiology and Other Data: Microbiology 02/15/17 18:30 Nasal Screen MRSA (PCR)(MARNIE) - Final Nasal Mrsa Negative Assess/Plan/Problems-Billing Assessment: Ms. Jean is a 71 yo F admitted with acute on chronic renal failure, h/o diarrhea for several weeks, chronic leg edema on diuretic at home. - Patient Problems (1) Abdominal mass, left lower quadrant Code(s): R19.04 - LEFT LOWER QUADRANT ABDOMINAL SWELLING, MASS AND LUMP SNOMED Code(s): 328809752 Comment: - Appreciate Dr. Grigsby's consult. CA125 antigen elevated. - s/p CT guided bx on 02/11/17, path prelim report conclusive of mailgnancy. CT from [place] in 11/09 shows abd fat stranding, but no masses rosaline visualized. - Had a conferece call with daughter Mirna, pt's and Dr. Grigsby on . Family was informed that the malignancy is not fully identified yet and that additional path stains are pending and will be avaliable in the next 2 days. - If the malignancy is not easily treatable, pt may not be a candidate for chemo and then hospice will be offered. (2) Lower GI bleeding Code(s): K92.2 - GASTROINTESTINAL HEMORRHAGE, UNSPECIFIED SNOMED Code(s): 81058778 Comment: - HH stable. - Resolved, suspect hemorrhoidal. - Dr. Green consulted-no further w/up recommended. Pt has h/o epigastric pain with extensive GI w/up at [facility], showing H. Pylori neg gastritis. 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 Suspect bleeding is rectal, not vaginal. Possibly due to hemorrhoids that were noted suring c-scope at [place] - CT abd pelvis showed LLQ mass at 7 cm and possible omental caking. - Continue Carafate. (3) CKD (chronic kidney disease) Code(s): N18.9 - CHRONIC KIDNEY DISEASE, UNSPECIFIED SNOMED Code(s): 806029515 Comment: - Baseline creatinine 1.3-1.6. Still >5. - Had been on Kayexalate for hyperkalemia. - D/w Dr. Archer, rate of creatinine increase has slowed down, but pt developed metabolic acidosis that needs to be corrected with Na bicarb PO and IV gtt that was started on 02/26/17 - Echo shows EF 60%, mod , mod pulm HTN - Possible ATN due to prerenal state. FeNa 0.1. - Continue IVF and GOOD bandages to LE's. (4) Atrial flutter Code(s): I48.92 - UNSPECIFIED ATRIAL FLUTTER SNOMED Code(s): 7491641 Comment: - Pt has h/o Mobitz tupe 2 s/p pacer in past - Today in regular rhythm by auscultation - Anticoagulation held due to bleeding - Continue metoprolol (5) Diabetes Code(s): E11.9 - TYPE 2 DIABETES MELLITUS WITHOUT COMPLICATIONS SNOMED Code(s) : 58205999 Comment: - Off all hypoglycemics. Fasting FS glucose 117-120's. (6) Chronic diarrhea Code(s): K52.9 - NONINFECTIVE GASTROENTERITIS AND COLITIS, UNSPECIFIED SNOMED Code(s): 322198693 Comment: - Pt reports her normal is 2-3 BM per day. - Fecal lactoferrin neg and stool cx neg. It is possible that pt has neuroendocrine malignancy causing secretory diarrhea - VRE reported in stool-not pathologic in stool - Continue Imodium (7) Difficulty walking Code(s): R26.2 - DIFFICULTY IN WALKING, NOT ELSEWHERE CLASSIFIED SNOMED Code(s ): 457723166 Comment: - Continue PT - Pt will need STR (8) Morbid obesity Code(s): E66.01 - MORBID (SEVERE) OBESITY DUE TO EXCESS CALORIES SNOMED Code(s ): 901983133 Comment: - BMI 47.1. (9) UTI due to extended-spectrum beta lactamase (ESBL) producing Escherichia coli Code(s): N39.0 - URINARY TRACT INFECTION, SITE NOT SPECIFIED; A49.8 - OTHER BACTERIAL INFECTIONS OF UNSPECIFIED SITE; Z16.12 - EXTENDED SPECTRUM BETA LACTAMASE (ESBL) RESISTANCE SNOMED Code(s): 015149478 Comment: - ID recommended to complete 5 day course, last dose given on 02/24/17 (10) Normocytic anemia Code(s): D64.9 - ANEMIA, UNSPECIFIED SNOMED Code(s): 496239284 Comment: - Suspect due to CKD (11) DVT prophylaxis Code(s): KXX5582 - SNOMED Code(s): 518694878 Comment: - heparin SQ (12) Full code status Status and Disposition: Inpatient
[2017-02-28] MEDS ORDERED: Ondansetron INJ* 2 MG/ML VIAL IV PRN (09:59)
[2017-02-28] MEDS: Zinc Oxide 40% (TOPICAL)* TUBE TOPICAL SCH ×3 (10:12→21:11)
[2017-02-28] MEDS: Sodium Bicarbonate 8.4% IV* 100 MEQ in D5W 1000 ML BAG* 1,000 ML IVPB SCH ×2 (11:34→21:38)
[2017-02-28] MEDS: Atorvastatin* 10 MG TAB PO SCH (18:58)
[2017-02-28] MEDS: Gabapentin CAP(*) 100 MG PO SCH (21:02)
[2017-03-01] MEDS: Heparin VIAL(*) 5000 UNITS/ML VIAL (FIVE THOUSAND) SUBCUT SCH ×3 (05:17→21:45)
[2017-03-01 06:55] LABS: Budding Yeast Present (Absent); Urine Bacteria 1+ (Absent); Urine Bilirubin Negative (Negative); Urine Glucose Negative (Negative); Urine Nitrite Negative (Negative)
[2017-03-01] MEDS: Sodium Bicarbonate (ANTACID)* 650 MG TAB PO SCH ×3 (09:56→17:46)
[2017-03-01] MEDS: Metoprolol Tartrate TAB* 50 mg PO SCH ×2 (09:57→21:49)
[2017-03-01] MEDS: Omeprazole CAP* 20 MG PO SCH (09:57)
[2017-03-01] MEDS: oxyCODONE TAB* 5 MG TAB PO PRN (11:12)
[2017-03-01] MEDS: Sodium Bicarbonate 8.4% IV* 100 MEQ in D5W 1000 ML BAG* 1,000 ML IVPB SCH (11:13)
--- NOTE | 2017-03-01 11:20 | PN ---
Progress Note - Progress Note Date of Service: 03/01/17 SOAP: Subjective: []Pain is controlled today but had not been controlled before that. Not walking. Eating some but according to has not been eating before that. Pain is in hips and stomach. She is a poor historian today, most history from family friend and . Acetaminophen (Tylenol Tab*) 650 mg PO Q4H PRN PRN Reason: PAIN/INFLAMMATION Last Admin: 02/17/17 02:49 Dose: 650 mg Atorvastatin Calcium (Lipitor*) 10 mg PO QPM YIMI Last Admin: 02/28/17 18:58 Dose: 10 mg Benzonatate (Tessalon Cap*) 200 mg PO TID PRN PRN Reason: COUGH Dextrose (D50w Syringe 50 Ml*) 12.5 gm IV PUSH .FOR FS < 60 - SS PRN PRN Reason: FS < 60 Gabapentin (Neurontin Cap(*)) 100 mg PO BEDTIME COUNT INCLUDES THE [facility] Last Admin: 02/28/17 21:02 Dose: 100 mg Heparin Sodium (Porcine) (Heparin Vial(*)) 5,000 units SUBCUT Q8HR COUNT INCLUDES THE [facility] Last Admin: 03/01/17 05:17 Dose: 5,000 units Sodium Bicarbonate 100 meq/ (Dextrose) 1,100 mls @ 100 mls/hr IVPB Q11H COUNT INCLUDES THE [facility] Last Admin: 02/28/17 21:38 Dose: 100 mls/hr Loperamide HCl (Imodium Cap*) 2 mg PO .SEE DIRECTIONS PRN PRN Reason: DIARRHEA Last Admin: 02/25/17 12:14 Dose: 2 mg Metoprolol Tartrate (Lopressor Tab*) 50 mg PO Q12HR COUNT INCLUDES THE [facility] Last Admin: 03/01/17 09:57 Dose: 50 mg Omeprazole (Prilosec Cap*) 20 mg PO DAILY COUNT INCLUDES THE [facility] Last Admin: 03/01/17 09:57 Dose: 20 mg Ondansetron HCl (Zofran Inj*) 4 mg IV Q6H PRN PRN Reason: NAUSEA Oxycodone HCl (Roxycodone Tab*) 5 mg PO Q4H PRN PRN Reason: PAIN Last Admin: 02/27/17 10:47 Dose: 5 mg Simethicone (Mylicon*) 80 mg PO Q6H PRN PRN Reason: DISCOMFORT Sodium Bicarbonate (Sodium Bicarbonate (Antacid)*) 1,300 mg PO AC COUNT INCLUDES THE [facility] Last Admin: 03/01/17 09:56 Dose: 1,300 mg Zinc Oxide (Zinc Oxide 40% (Topical)*) 1 applic TOPICAL TID YIMI Last Admin: 02/28/17 21:11 Dose: 1 applic Objective: [] Vital Signs Temp Pulse Resp BP Pulse Ox 97.8 F 76 17 140/42 100 03/01/17 08:20 03/01/17 08:20 03/01/17 08:20 03/01/17 08:20 03/01/17 08:20 HEENT: Mucosa dry, no lesions CTA RRR S1S2 marked obesity and exam non specific, NT and has BS Aguilar, no urine Ext w/ chronic edema, alona wrap, cool to touch Neuro- fluctuating mental status on exam. Pathology with poorly differentiate malignancy, sarcomatiod differentiation. Differential includes stromal or sarcomatiod ovarian cancer, metastatic carcinoma, peritoneal mesothelioma is possible. Assessment: []71 year old with new diagnosis of malignancy as well as ARF from presumed pre renal ATN. CT scan suggestive of ovarian cancer, pathologic differential is board. At this time renal failure is dominant issues. There will likely be options for treatment of her malignancy depending on her performance status. This will not be a curable cancer and prognosis is likely poor. Will need to determine utility in aggressive care as she progresses clinically. Plan: []1. Case reviewed with pathology and will check CD-10, if positive c/w stromal ovarian tumor. Also, will send profile for CUP. Told patient that additional results expected mid next week. 2. Agree with supportive care for renal failure. HD may be needed. Will need to determine her willingness to engage aggressive care. She was not able to engage at that level this morning. Will continue to follow.
[2017-03-01 12:10] LABS: BUN/Creatinine Ratio 14.5 (8-20); Calcium 8.3 mg/dL (8.6-10.3); EGFR African American 10.3 (>60); Potassium 4.1 mmol/L (3.5-5.0)
--- NOTE | 2017-03-01 13:25 | PN ---
Subjective Date of Service: 03/01/17 Interval History: Patient seen and examined at bedside. Pt states that she is feeling well today, but tired. Pt states that she is eating and drinking, but per NS staff and Pt has not eaten today. Denies fever, chills, shortness of breath, chest discomfort, N/V/D. Pt is more lethargic today. Pt states that she is not interested in Dialysis. Family History: Unchanged from Admission Social History: Unchanged from Admission Past Medical History: Unchanged from Admission Objective Active Medications: Acetaminophen (Tylenol Tab*) 650 mg PO Q4H PRN Reason: PAIN/INFLAMMATION Atorvastatin Calcium (Lipitor*) 10 mg PO QPM YIMI Benzonatate (Tessalon Cap*) 200 mg PO TID PRN Reason: COUGH Dextrose (D50w Syringe 50 Ml*) 12.5 gm IV PUSH .FOR FS < 60 - SS PRN Reason: FS < 60 Gabapentin (Neurontin Cap(*)) 100 mg PO BEDTIME YIMI Heparin Sodium (Porcine) (Heparin Vial(*)) 5,000 units SUBCUT Q8HR YIMI Loperamide HCl (Imodium Cap*) 2 mg PO .SEE DIRECTIONS PRN Reason: DIARRHEA Metoprolol Tartrate (Lopressor Tab*) 50 mg PO Q12HR YIMI Omeprazole (Prilosec Cap*) 20 mg PO DAILY YIMI Ondansetron HCl (Zofran Inj*) 4 mg IV Q6H PRN Reason: NAUSEA Simethicone (Mylicon*) 80 mg PO Q6H PRN Reason: DISCOMFORT Sodium Bicarbonate (Sodium Bicarbonate (Antacid)*) 1,300 mg PO AC YIMI Zinc Oxide (Zinc Oxide 40% (Topical)*) 1 applic TOPICAL TID [facility] Vital Signs 02/28/17 02/28/17 02/28/17 16:00 16:05 20:00 Temperature 98.6 F Pulse Rate 75 Respiratory 18 18 Rate Blood Pressure 142/52 (mmHg) O2 Sat by Pulse 97 100 Oximetry 02/28/17 02/28/17 02/28/17 20:17 21:02 23:02 Temperature 98.2 F Pulse Rate 76 Respiratory 16 16 20 Rate Blood Pressure 118/69 (mmHg) O2 Sat by Pulse 100 Oximetry 02/28/17 03/01/17 03/01/17 23:44 04:06 08:20 Temperature 98.1 F 97.8 F Pulse Rate 74 75 76 Respiratory 16 20 17 Rate Blood Pressure 121/47 107/41 140/42 (mmHg) O2 Sat by Pulse 100 95 100 Oximetry 03/01/17 11:12 Temperature Pulse Rate Respiratory 18 Rate Blood Pressure (mmHg) O2 Sat by Pulse Oximetry Oxygen Devices in Use Now: None Appearance: NAD, laying in bed Respiratory: Symmetrical Chest Expansion and Respiratory Effort, Clear to Auscultation Cardiovascular: NL Sounds; No Murmurs; No JVD, RRR Abdominal: NL Sounds; No Tenderness; No Distention Extremities: - - Trace to 1+ bilateral LE edema Neurological: - - Alert and Oriented to Person and Place. Pt is drowsy today Lines/Tubes/Other Access: Clean, Dry and Intact Peripheral IV - site benign Nutrition: Taking PO's Result Diagrams: 02/28/17 04:37 03/01/17 11:34 Additional Lab and Data: Microbiology and Other Data: Microbiology 02/15/17 18:30 Nasal Screen MRSA (PCR)(MARNIE) - Final Nasal Mrsa Negative Assess/Plan/Problems-Billing Assessment: Ms. Jean is a 71 yo F admitted with acute on chronic renal failure, h/o diarrhea for several weeks, chronic leg edema on diuretic at home. - Patient Problems (1) Abdominal mass, left lower quadrant Code(s): R19.04 - LEFT LOWER QUADRANT ABDOMINAL SWELLING, MASS AND LUMP SNOMED Code(s): 970671710 Comment: - Appreciate Dr. Grigsby's consult. CA125 antigen elevated. - s/p CT guided bx on 02/11/17, path prelim report conclusive of mailgnancy. CT from [place] in 11/09 shows abd fat stranding, but no masses rosaline visualized. - Had a conferece call with daughter Mirna, pt's and Dr. Grigsby on . Family was informed that the malignancy is not fully identified yet. Additional path stains still have not identified the malignancy and further testing pending and will be avaliable next week. - If the malignancy is not easily treatable, pt may not be a candidate for chemo and then hospice will be offered. - Will get a Palliative Care consult. (2) Lower GI bleeding Code(s): K92.2 - GASTROINTESTINAL HEMORRHAGE, UNSPECIFIED SNOMED Code(s): 22826449 Comment: - HH stable. - Resolved, suspect hemorrhoidal. - Dr. Green consulted-no further w/up recommended. Pt has h/o epigastric pain with extensive GI w/up at [facility], showing H. Pylori neg gastritis. 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 Suspect bleeding is rectal, not vaginal. Possibly due to hemorrhoids that were noted during c-scope at [place] - CT abd pelvis showed LLQ mass at 7 cm and possible omental caking. - Continue Carafate. (3) CKD (chronic kidney disease) Code(s): N18.9 - CHRONIC KIDNEY DISEASE, UNSPECIFIED SNOMED Code(s): 096121857 Comment: - Now with acute on chronic - Baseline creatinine 1.3-1.6. Still >5. - Had been on Kayexalate for hyperkalemia. - D/w Dr. Archer, rate of creatinine increase has slowed down, but pt developed metabolic acidosis that needed to be corrected with Na bicarb PO and IV gtt that was started on 02/26/17. Discontinue IV gtt 03/01/17 - Echo shows EF 60%, mod , mod pulm HTN - Possible ATN due to prerenal state. FeNa 0.1. - Continue GOOD bandages to LE's. (4) Atrial flutter Code(s): I48.92 - UNSPECIFIED ATRIAL FLUTTER SNOMED Code(s): 7528028 Comment: - Pt has h/o Mobitz tupe 2 s/p pacer in past - Today in regular rhythm by auscultation - Anticoagulation held due to bleeding - Continue metoprolol (5) Diabetes Code(s): E11.9 - TYPE 2 DIABETES MELLITUS WITHOUT COMPLICATIONS SNOMED Code(s) : 80925585 Comment: - Off all hypoglycemics. Fasting FS glucose 110-120's. (6) Chronic diarrhea Code(s): K52.9 - NONINFECTIVE GASTROENTERITIS AND COLITIS, UNSPECIFIED SNOMED Code(s): 939814232 Comment: - Pt reports her normal is 2-3 BM per day. - Fecal lactoferrin neg and stool cx neg. It is possible that pt has neuroendocrine malignancy causing secretory diarrhea - VRE reported in stool-not pathologic in stool - Continue Imodium (7) Difficulty walking Code(s): R26.2 - DIFFICULTY IN WALKING, NOT ELSEWHERE CLASSIFIED SNOMED Code(s ): 413799340 Comment: - Continue PT - Pt will need STR (8) Morbid obesity Code(s): E66.01 - MORBID (SEVERE) OBESITY DUE TO EXCESS CALORIES SNOMED Code(s ): 279826852 Comment: - BMI 47.1. (9) UTI due to extended-spectrum beta lactamase (ESBL) producing Escherichia coli Code(s): N39.0 - URINARY TRACT INFECTION, SITE NOT SPECIFIED; A49.8 - OTHER BACTERIAL INFECTIONS OF UNSPECIFIED SITE; Z16.12 - EXTENDED SPECTRUM BETA LACTAMASE (ESBL) RESISTANCE SNOMED Code(s): 847017499 Comment: - ID recommended to complete 5 day course, last dose given on 02/24/17 (10) Normocytic anemia Code(s): D64.9 - ANEMIA, UNSPECIFIED SNOMED Code(s): 979993453 Comment: - Suspect due to CKD (11) DVT prophylaxis Code(s): IVX6952 - SNOMED Code(s): 653973527 Comment: - heparin SQ (12) Full code status Status and Disposition: Inpatient. [facility]charge to [facility] vs Hospice when medically stable.
[2017-03-01] MEDS: Zinc Oxide 40% (TOPICAL)* TUBE TOPICAL SCH ×3 (15:31→21:49)
[2017-03-01 17:18] LABS: PCO2 Arterial 42 mmHg (35-45)
--- NOTE | 2017-03-01 18:02 | CONS ---
CC: MILTON Fisher; Adela Reese NP PALLIATIVE CARE CONSULTATION: DATE OF CONSULT: 03/01/17 PRIMARY CARE PROVIDER: MILTON Fisher REFERRING PROVIDER: Adela Reese NP HOSPITAL COURSE: This is a 71-year-old female with a very complicated medical history, who presente d to the emergency room on 02/15/17 after getting discharged from [facility] t hat same day. The patient has a history of recurrent urinary tract infections and acute on chronic kidney injury, who according to the states has been in and out of [facility] almost w eekly for the past 3 years and was sent home on 02/14/17 and he states it took 4 people to get her i nto the car and when he got home, he could not get her out of the car and brought her back to [facility] because he was so disgruntled with [facility]. The patient has had a long co mplicated hospital course with chronic diarrhea and some concern for bleeding. She was seen by GI a nd [facility]. She was noted to have an abdominal pathology that was biopsied and turns out it is malignanc y, suspecting that it is ovarian, but further differentiation needs to be clarified. She was seen b bebeto Archer as well and the biggest concern is her worsening renal function. Her presenting renal function was creatinine was 2.6, now it has stabilized to 5.25 over the past few days with a creatin ine clearance of 10. Looking at her physical therapy notes, the patient has had limited participation in therapy due to being confused, drowsy, unable to participate due to this. On my encounter, the states he has not been able to wake her up all day, although her breakfast has been eaten. She did get an oxycodone about 2 hours prior to my encounter and she does awake and can answer questions appropriat rebecca, but very limited interaction and is mostly somnolent. I also spoke with the daughter, Desiree arango, who lives in [place], who is flying in tomorrow, at length and she states that her mom has got ten deteriorated over the past 3 years, which she is in and out of the hospital, has been almost wee kly over the past few months at [place], and she states that she has never really gotten better and she has become more and more deconditioned and weak. I spoke with the and the daughter abo ut my recommendation for hospice and the options of the use of hospice locations and they both seeme d to open to it. We also spoke about with the her code status and he agreed that she should be a DNR/DNI and MOLST form was filled out. The patient is not really able to articulate any of th e review of systems and thus unable to complete them. PAST MEDICAL HISTORY: 1. Diabetes. 2. Atrial flutter. 3. Recurrent urinary tract infections. 4. Hypertension. 5. Chronic diarrhea. 6. Chronic kidney disease. 7. History of a pacemaker placement. 8. History of right total knee replacement. Hospital course is complicated by acute on chronic kidney failure, urinary tract infection, intraabd ominal malignancy, and overall decline, deconditioning with confusion and somnolence. INPATIENT MEDICATIONS: 1. Tylenol 650 mg every 4 hours as needed. 2. Atorvastatin 10 mg daily. 3. Benzonatate 200 mg p.o. t.i.d. as needed. 4. Gabapentin 100 mg at bedtime. 5. Heparin 5000 units subcu t.i.d. 6. Imodium 2 mg as needed. 7. Metoprolol tartrate 50 mg p.o. b.i.d. 8. Omeprazole 20 mg daily. 9. Zofran 4 mg q.6 hours as needed. 10. Simethicone 80 mg p.o. q.6 hours as needed. 11. Sodium bicarb 1300 mg p.o. a.c. 12. Zinc oxide. 13. Oxycodone 5 mg q.4 hours as needed. ALLERGIES: No known drug allergies. FAMILY HISTORY: Reviewed and noncontributory. SOCIAL HISTORY: The patient was in and out of [facility] and was planned to go [facility] on 02/14/17 when she returned here to the hospital. She is a former smoker. No alcohol or illici t drug use. Her , Hasmukh Jean, is her healthcare proxy. She has 3 children. Her other pr imary point of contact is Desiree Jean, who lives in [place], phone number is [phone], and MOLS T form has now been modified as a DNR/DNI, initially was a full code. REVIEW OF SYSTEMS: Limited due to the patient's drowsiness and altered mental status. PHYSICAL EXAM: Vitals: Temperature 97.8, pulse 76, respiratory rate 17, oxygen saturation 100% on room air, blood pressure 140/72. General: The patient is somnolent, no acute distress. She does a wake and answer questions appropriately and is able to follow commands appropriately, but limited in teraction. Pupils are dilated, reactive, anicteric. Head, normocephalic. Oropharynx: Mucous memb ranes moist. Cardiac: systolic murmur. Regular rate and rhythm. Respiratory: Diminished br eath sounds. No wheezes, rhonchi, or rales. Abdomen: Morbidly obese. Extremities: The patient w ith Ottoniel bandage wraps on her lower extremities, edematous with chronic venous stasis changes. Neuro logic: She is alert and oriented to herself. No gross focal neurologic deficits. Limited neurolog ic exam due to the patient's drowsiness. DIAGNOSTIC STUDIES/LAB DATA: White count 9, hemoglobin 10, hematocrit 32, platelets 245. Sodium 13 2, potassium 4.1, chloride 98, bicarb 24, BUN 76, creatinine 5.25. Radiographic data: Ascites with pseudo-omental cake formation, multiple intraperitoneal masses sugg est peritoneal carcinomatosis, left adrenal mass likely metastatic, porcelain gallbladder, ventral w all hernia. 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 I spoke with the and the daughter at length regarding my r ecommendations and her poor prognosis and that she could not receive treatment for her malignancy in the setting of her renal failure and I do not expect her kidney function to improve much despite of being stabilized. No indication for urgent dialysis at this time, although I do not even think the patient is an adequate candidate for dialysis. The daughter has been concerned about her over the p ast 3 years in her decline and her deconditioning. We spoke at length regarding longterm with rubi echeverria and the hospice residence facility and also I suggested the [facility] maybe an option for them as finance seems to be an issue for them. Daughter, Desiree, is going to call the now to discuss this further and she is planning to come into town tomorrow to make a more concrete decis ion regarding disposition and agreement to hospice. At this time due, to the patient's somnolence, I did recommend putting in a swallow evaluation, checking a glucose level, and I did stop her oxycod one. I spoke with Dr. Archer regarding alterative narcotics and he recommended methadone if she larsen s have pain in the setting of her renal failure. I did speak with Dr. Fajardo and Dr. 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 I am going to have a social service assistant to have followup with the famil y to discuss further placement planning and decision making and now the patient is a DNR/DNI as the signed the MOLST form this evening. Thank you for this consultation. PATIENT TIME: Greater than 120 minutes was spent doing this consultation, more than half the time s pent in direct patient contact. [id number]/[facility] #: [id number]
[2017-03-01] MEDS: Atorvastatin* 10 MG TAB PO SCH (18:33)
[2017-03-01] MEDS: Gabapentin CAP(*) 100 MG PO SCH (21:44)
[2017-03-02] MEDS: Heparin VIAL(*) 5000 UNITS/ML VIAL (FIVE THOUSAND) SUBCUT SCH ×3 (05:10→22:38)
[2017-03-02] MEDS: Sodium Bicarbonate (ANTACID)* 650 MG TAB PO SCH ×3 (08:55→17:50)
[2017-03-02] MEDS: Metoprolol Tartrate TAB* 50 mg PO SCH ×2 (08:55→22:37)
[2017-03-02] MEDS: Omeprazole CAP* 20 MG PO SCH (08:55)
[2017-03-02] MEDS: Zinc Oxide 40% (TOPICAL)* TUBE TOPICAL SCH ×3 (09:06→22:38)
--- NOTE | 2017-03-02 09:49 | PN ---
Subjective Date of Service: 03/02/17 Interval History: Patient seen and examined at bedside. Pt is less lethargic today. Denies fever, chills, shortness of breath, chest discomfort, N/V/D. Pt states that she has an appetite and is eating. Pt ate 100% of her breakfast this morning, which only consisted of yogurt. Pt's daughter is expected to arrive later today and we will plan to further discuss the plan of care when she gets here. Family History: Unchanged from Admission Social History: Unchanged from Admission Past Medical History: Unchanged from Admission Objective Active Medications: Acetaminophen (Tylenol Tab*) 650 mg PO Q4H PRN Reason: PAIN/INFLAMMATION Atorvastatin Calcium (Lipitor*) 10 mg PO QPM YIMI Benzonatate (Tessalon Cap*) 200 mg PO TID PRN Reason: COUGH Dextrose (D50w Syringe 50 Ml*) 12.5 gm IV PUSH .FOR FS < 60 - SS PRN Reason: FS < 60 Gabapentin (Neurontin Cap(*)) 100 mg PO BEDTIME YIMI Heparin Sodium (Porcine) (Heparin Vial(*)) 5,000 units SUBCUT Q8HR YIMI Loperamide HCl (Imodium Cap*) 2 mg PO .SEE DIRECTIONS PRN Reason: DIARRHEA Metoprolol Tartrate (Lopressor Tab*) 50 mg PO Q12HR YIMI Omeprazole (Prilosec Cap*) 20 mg PO DAILY YIMI Ondansetron HCl (Zofran Inj*) 4 mg IV Q6H PRN Reason: NAUSEA Simethicone (Mylicon*) 80 mg PO Q6H PRN Reason: DISCOMFORT Sodium Bicarbonate (Sodium Bicarbonate (Antacid)*) 1,300 mg PO AC YIMI Zinc Oxide (Zinc Oxide 40% (Topical)*) 1 applic TOPICAL TID [facility] Vital Signs 03/01/17 03/01/17 03/01/17 11:12 13:12 16:00 Temperature Pulse Rate Respiratory 18 16 Rate Blood Pressure (mmHg) O2 Sat by Pulse 90 Oximetry 03/01/17 03/01/17 03/01/17 16:12 20:22 21:44 Temperature 98.0 F 98.2 F Pulse Rate 76 76 Respiratory 20 20 16 Rate Blood Pressure 135/51 136/49 (mmHg) O2 Sat by Pulse 100 Oximetry 03/01/17 03/01/17 03/02/17 22:27 23:44 04:17 Temperature 98.4 F Pulse Rate 101 Respiratory 18 18 20 Rate Blood Pressure 123/39 (mmHg) O2 Sat by Pulse 93 Oximetry 03/02/17 03/02/17 03/02/17 08:00 08:32 09:23 Temperature 98.7 F Pulse Rate 59 Respiratory 16 Rate Blood Pressure 125/49 (mmHg) O2 Sat by Pulse 95 95 Oximetry Oxygen Devices in Use Now: None Appearance: NAD, laying in bed Eyes: No Scleral Icterus Ears/Nose/Mouth/Throat: Mucous Membranes Moist Respiratory: Symmetrical Chest Expansion and Respiratory Effort, Clear to Auscultation - , diminished Cardiovascular: NL Sounds; No Murmurs; No JVD, RRR Abdominal: NL Sounds; No Tenderness; No Distention Extremities: - - 1+ bilateral LE edema Skin: No Rash or Ulcers Neurological: Alert and Oriented x 3, NL Muscle Strength and Tone Lines/Tubes/Other Access: Clean, Dry and Intact Peripheral IV - site benign Nutrition: Taking PO's Result Diagrams: 02/28/17 04:37 03/01/17 11:34 Additional Lab and Data: Microbiology and Other Data: Microbiology 02/15/17 18:30 Nasal Screen MRSA (PCR)(MARNIE) - Final Nasal Mrsa Negative Assess/Plan/Problems-Billing Assessment: Ms. Jean is a 71 yo F admitted with acute on chronic renal failure, h/o diarrhea for several weeks, chronic leg edema on diuretic at home. - Patient Problems (1) Abdominal mass, left lower quadrant Code(s): R19.04 - LEFT LOWER QUADRANT ABDOMINAL SWELLING, MASS AND LUMP SNOMED Code(s): 532573925 Comment: - Appreciate Dr. Grigsby's consult. CA125 antigen elevated. - s/p CT guided bx on 02/11/17, path prelim report conclusive of mailgnancy. CT from [place] in 11/09 shows abd fat stranding, but no masses rosaline visualized. - Had a conferece call with daughter Mirna, pt's and Dr. Grigsby on . Family was informed that the malignancy is not fully identified yet. Additional path stains still have not identified the malignancy and further testing pending and will be avaliable next week. - If the malignancy is not easily treatable, pt may not be a candidate for chemo and then hospice will be offered. - Palliative Care consult, appreciate input. (2) Lower GI bleeding Code(s): K92.2 - GASTROINTESTINAL HEMORRHAGE, UNSPECIFIED SNOMED Code(s): 27098084 Comment: - HH stable. - Resolved, suspect hemorrhoidal. - Dr. Green consulted-no further w/up recommended. Pt has h/o epigastric pain with extensive GI w/up at [facility], showing H. Pylori neg gastritis. - VENEER MEASURER consult appreciated. Suspect bleeding is rectal, not vaginal. Possibly due to hemorrhoids that were noted during c-scope at [place] - CT abd pelvis showed LLQ mass at 7 cm and possible omental caking. - Continue Carafate. (3) CKD (chronic kidney disease) Code(s): N18.9 - CHRONIC KIDNEY DISEASE, UNSPECIFIED SNOMED Code(s): 897069840 Comment: - Now with acute on chronic - Baseline creatinine 1.3-1.6. Still >5. Creatinine stable - Had been on Kayexalate for hyperkalemia. - D/w Dr. Archer, rate of creatinine increase has slowed down, but pt developed metabolic acidosis that needed to be corrected with Na bicarb PO and IV gtt that was started on 02/26/17. Discontinue IV gtt 03/01/17 - Echo shows EF 60%, mod , mod pulm HTN - Possible ATN due to prerenal state. FeNa 0.1. - Continue GOOD bandages to LE's. (4) Atrial flutter Code(s): I48.92 - UNSPECIFIED ATRIAL FLUTTER SNOMED Code(s): 1080079 Comment: - Pt has h/o Mobitz tupe 2 s/p pacer in past - Today in regular rhythm by auscultation - Anticoagulation held due to bleeding - Continue metoprolol (5) Diabetes Code(s): E11.9 - TYPE 2 DIABETES MELLITUS WITHOUT COMPLICATIONS SNOMED Code(s) : 75751687 Comment: - Off all hypoglycemics. Fasting FS glucose 70-160's. (6) Chronic diarrhea Code(s): K52.9 - NONINFECTIVE GASTROENTERITIS AND COLITIS, UNSPECIFIED SNOMED Code(s): 163939473 Comment: - Pt reports her normal is 2-3 BM per day. - Fecal lactoferrin neg and stool cx neg. It is possible that pt has neuroendocrine malignancy causing secretory diarrhea - VRE reported in stool-not pathologic in stool - Continue Imodium (7) Difficulty walking Code(s): R26.2 - DIFFICULTY IN WALKING, NOT ELSEWHERE CLASSIFIED SNOMED Code(s ): 563021531 Comment: - Continue PT - Pt will need STR (8) Morbid obesity Code(s): E66.01 - MORBID (SEVERE) OBESITY DUE TO EXCESS CALORIES SNOMED Code(s ): 076510935 Comment: - BMI 47.1. (9) UTI due to extended-spectrum beta lactamase (ESBL) producing Escherichia coli Code(s): N39.0 - URINARY TRACT INFECTION, SITE NOT SPECIFIED; A49.8 - OTHER BACTERIAL INFECTIONS OF UNSPECIFIED SITE; Z16.12 - EXTENDED SPECTRUM BETA LACTAMASE (ESBL) RESISTANCE SNOMED Code(s): 617863237 Comment: - ID recommended to complete 5 day course, last dose given on 02/24/17 (10) Normocytic anemia Code(s): D64.9 - ANEMIA, UNSPECIFIED SNOMED Code(s): 822702574 Comment: - Suspect due to CKD (11) DVT prophylaxis Code(s): NLD5811 - SNOMED Code(s): 547623989 Comment: - heparin SQ (12) Full code status Status and Disposition: Inpatient. [facility]charge to [facility] vs Hospice when medically stable.
[2017-03-02] MEDS: Atorvastatin* 10 MG TAB PO SCH (17:50)
[2017-03-02] MEDS: Gabapentin CAP(*) 100 MG PO SCH (22:37)
[2017-03-03] MEDS: Omeprazole CAP* 20 MG PO SCH (06:07)
[2017-03-03] MEDS: Heparin VIAL(*) 5000 UNITS/ML VIAL (FIVE THOUSAND) SUBCUT SCH (06:07)
[2017-03-03] MEDS: Sodium Bicarbonate (ANTACID)* 650 MG TAB PO SCH ×3 (06:20→17:14)
[2017-03-03 07:00] LABS: Hematocrit 30 % (35-47); Hemoglobin 9.6 g/dl (12.0-16.0); Mean Corpuscular HGB Conc 32 g/dl (31-36); Mean Corpuscular Hemoglobin 30 pg (27-31); Mean Corpuscular Volume 93 fL (80-97); Mean Platelet Volume 7 um3 (7.4-10.4); Red Blood Count 3.17 10^6/ul (4.0-5.4); Red Cell Distribution Width 17 % (10.5-15); White Blood Count 9.5 10^3/ul (3.5-10.8)
[2017-03-03 07:08] LABS: Add Diff/Slide Review? Slide Review Added; Comments Flag Yes
[2017-03-03 07:17] LABS: BUN/Creatinine Ratio 14.1 (8-20); Calcium 8.9 mg/dL (8.6-10.3); EGFR African American 8.8 (>60); EGFR Non-African American 6.8 (>60); Potassium 4.6 mmol/L (3.5-5.0)
--- NOTE | 2017-03-03 09:50 | PN ---
Subjective Date of Service: 03/03/17 Interval History: Patient seen and examined at bedside. Pt continues to be lethargic and isn't eating or drinking much. Pt is not answering many questions today. Family meeting yesterday with Dr. Grigsby, and they are leaning towards hospice. Family History: Unchanged from Admission Social History: Unchanged from Admission Past Medical History: Unchanged from Admission Objective Active Medications: Acetaminophen (Tylenol Tab*) 650 mg PO Q4H PRN Reason: PAIN/INFLAMMATION Atorvastatin Calcium (Lipitor*) 10 mg PO QPM YIMI Benzonatate (Tessalon Cap*) 200 mg PO TID PRN Reason: COUGH Dextrose (D50w Syringe 50 Ml*) 12.5 gm IV PUSH .FOR FS < 60 - SS PRN Reason: FS < 60 Gabapentin (Neurontin Cap(*)) 100 mg PO BEDTIME YIMI Heparin Sodium (Porcine) (Heparin Vial(*)) 5,000 units SUBCUT Q8HR YIMI Loperamide HCl (Imodium Cap*) 2 mg PO .SEE DIRECTIONS PRN Reason: DIARRHEA Metoprolol Tartrate (Lopressor Tab*) 50 mg PO Q12HR YIMI Omeprazole (Prilosec Cap*) 20 mg PO DAILY@0600 YIMI Ondansetron HCl (Zofran Inj*) 4 mg IV Q6H PRN Reason: NAUSEA Simethicone (Mylicon*) 80 mg PO Q6H PRN Reason: DISCOMFORT Sodium Bicarbonate (Sodium Bicarbonate (Antacid)*) 1,300 mg PO AC@0600,1130, 1630 YIMI Zinc Oxide (Zinc Oxide 40% (Topical)*) 1 applic TOPICAL TID [facility] Vital Signs 03/02/17 03/02/17 03/02/17 11:24 16:32 16:33 Temperature 98.4 F 98.4 F Pulse Rate 75 75 Respiratory 17 18 Rate Blood Pressure 111/47 139/43 (mmHg) O2 Sat by Pulse 96 96 Oximetry 03/02/17 03/02/17 03/02/17 19:49 22:37 23:53 Temperature 98.4 F 99.0 F Pulse Rate 75 71 Respiratory 16 16 16 Rate Blood Pressure 124/41 121/40 (mmHg) O2 Sat by Pulse 96 92 Oximetry 03/02/17 03/03/17 03/03/17 23:59 00:37 04:36 Temperature 98.8 F Pulse Rate 77 Respiratory 16 16 16 Rate Blood Pressure 151/54 (mmHg) O2 Sat by Pulse 99 Oximetry Oxygen Devices in Use Now: None Appearance: NAD, laying in bed Respiratory: Symmetrical Chest Expansion and Respiratory Effort, Clear to Auscultation Cardiovascular: NL Sounds; No Murmurs; No JVD, - - Heart rate irregular Abdominal: NL Sounds; No Tenderness; No Distention Extremities: - - 1+ bilateral LE edema Neurological: - - Pt is confused and lethargic. Unable to state where she is or the year Lines/Tubes/Other Access: Clean, Dry and Intact Peripheral IV - site benign Nutrition: Taking PO's - , minimal PO intake Result Diagrams: 03/03/17 06:48 03/03/17 06:48 Additional Lab and Data: Microbiology and Other Data: Microbiology 02/15/17 18:30 Nasal Screen MRSA (PCR)(MARNIE) - Final Nasal Mrsa Negative Assess/Plan/Problems-Billing Assessment: Ms. Jean is a 71 yo F admitted with acute on chronic renal failure, h/o diarrhea for several weeks, chronic leg edema on diuretic at home. - Patient Problems (1) Abdominal mass, left lower quadrant Code(s): R19.04 - LEFT LOWER QUADRANT ABDOMINAL SWELLING, MASS AND LUMP SNOMED Code(s): 589891749 Comment: - Appreciate Dr. Grigsby's consult. CA125 antigen elevated. - s/p CT guided bx on 02/11/17, path prelim report conclusive of mailgnancy. CT from [place] in 11/09 shows abd fat stranding, but no masses rosaline visualized. - Had a conference call with daughter Mirna, pt's and Dr. Grigsby on . Family was informed that the malignancy is not fully identified yet. Additional path stains still have not identified the malignancy and further testing pending and will be avaliable next week. - If the malignancy is not easily treatable, pt may not be a candidate for chemo and then hospice will be offered. - Palliative Care consult, appreciate input. - 03/02/[address] Grigsby, her prognosis is < 1 month and she is not felt to be a candidate for chemo. - Family is leaning towards Hospice (2) Lower GI bleeding Code(s): K92.2 - GASTROINTESTINAL HEMORRHAGE, UNSPECIFIED SNOMED Code(s): 87524156 Comment: - HH stable. - Resolved, suspect hemorrhoidal. - Dr. Green consulted-no further w/up recommended. Pt has h/o epigastric pain with extensive GI w/up at [facility], showing H. Pylori neg gastritis. - PARALEGALS consult appreciated. Suspect bleeding is rectal, not vaginal. Possibly due to hemorrhoids that were noted during c-scope at [place] - CT abd pelvis showed LLQ mass at 7 cm and possible omental caking. - Continue Carafate. (3) CKD (chronic kidney disease) Code(s): N18.9 - CHRONIC KIDNEY DISEASE, UNSPECIFIED SNOMED Code(s): 146119450 Comment: - Now with acute on chronic - Baseline creatinine 1.3-1.6. Still >5. Creatinine up this morning, suspect related to volume depletion - Had been on Kayexalate for hyperkalemia. - D/w Dr. Archer, rate of creatinine increase has slowed down, but pt developed metabolic acidosis that needed to be corrected with Na bicarb PO and IV gtt that was started on 02/26/17. Discontinue IV gtt 03/01/17 - Echo shows EF 60%, mod , mod pulm HTN - Possible ATN due to prerenal state. FeNa 0.1. - Poor urine output - Continue GOOD bandages to LE's. (4) Atrial flutter Code(s): I48.92 - UNSPECIFIED ATRIAL FLUTTER SNOMED Code(s): 2469819 Comment: - Pt has h/o Mobitz tupe 2 s/p pacer in past - Heart rate irregular rhythm by auscultation - Anticoagulation held due to bleeding - Continue metoprolol (5) Diabetes Code(s): E11.9 - TYPE 2 DIABETES MELLITUS WITHOUT COMPLICATIONS SNOMED Code(s) : 19072441 Comment: - Off all hypoglycemics. Fasting FS glucose 70-160's. (6) Chronic diarrhea Code(s): K52.9 - NONINFECTIVE GASTROENTERITIS AND COLITIS, UNSPECIFIED SNOMED Code(s): 760498416 Comment: - Pt reports her normal is 2-3 BM per day. - Fecal lactoferrin neg and stool cx neg. It is possible that pt has neuroendocrine malignancy causing secretory diarrhea - VRE reported in stool-not pathologic in stool - Continue Imodium (7) Difficulty walking Code(s): R26.2 - DIFFICULTY IN WALKING, NOT ELSEWHERE CLASSIFIED SNOMED Code(s ): 222730281 Comment: - Continue PT - Pt will need STR (8) Morbid obesity Code(s): E66.01 - MORBID (SEVERE) OBESITY DUE TO EXCESS CALORIES SNOMED Code(s ): 514505201 Comment: - BMI 47.1. (9) UTI due to extended-spectrum beta lactamase (ESBL) producing Escherichia coli Code(s): N39.0 - URINARY TRACT INFECTION, SITE NOT SPECIFIED; A49.8 - OTHER BACTERIAL INFECTIONS OF UNSPECIFIED SITE; Z16.12 - EXTENDED SPECTRUM BETA LACTAMASE (ESBL) RESISTANCE SNOMED Code(s): 067740722 Comment: - ID recommended to complete 5 day course, last dose given on 02/24/17 (10) Normocytic anemia Code(s): D64.9 - ANEMIA, UNSPECIFIED SNOMED Code(s): 594847094 Comment: - Suspect due to CKD (11) DVT prophylaxis Code(s): BFT3259 - SNOMED Code(s): 848375051 Comment: - heparin SQ (12) Full code status Status and Disposition: Inpatient. Discharge to [facility] vs Hospice when bed is available.
[2017-03-03] MEDS: Metoprolol Tartrate TAB* 50 mg PO SCH ×2 (10:34→22:47)
[2017-03-03] MEDS: Zinc Oxide 40% (TOPICAL)* TUBE TOPICAL SCH ×3 (10:34→22:45)
[2017-03-03] MEDS: Atorvastatin* 10 MG TAB PO SCH (17:15)
[2017-03-03] MEDS: Gabapentin CAP(*) 100 MG PO SCH (22:46)
[2017-03-04] MEDS: Omeprazole CAP* 20 MG PO SCH (06:12)
[2017-03-04] MEDS: Sodium Bicarbonate (ANTACID)* 650 MG TAB PO SCH ×3 (06:15→17:27)
[2017-03-04] MEDS: Metoprolol Tartrate TAB* 50 mg PO SCH ×2 (08:56→21:24)
[2017-03-04] MEDS: Zinc Oxide 40% (TOPICAL)* TUBE TOPICAL SCH ×3 (08:57→21:24)
[2017-03-04] MEDS: Acetaminophen TAB* 325 MG PO PRN ×2 (09:54→13:58)
--- NOTE | 2017-03-04 12:38 | PN ---
Subjective Date of Service: 03/04/17 Interval History: Patient seen and examine at bedside. Pt states that her pain is controlled. Denies fever, chills, shortness of breath, chest discomfort, N/V/D. Pt continues to sleep most of the time and has a decreased appetite and low urine output. Family History: Unchanged from Admission Social History: Unchanged from Admission Past Medical History: Unchanged from Admission Objective Active Medications: Acetaminophen (Tylenol Tab*) 650 mg PO Q4H PRN Reason: PAIN/INFLAMMATION Atorvastatin Calcium (Lipitor*) 10 mg PO QPM YIMI Benzonatate (Tessalon Cap*) 200 mg PO TID PRN Reason: COUGH Dextrose (D50w Syringe 50 Ml*) 12.5 gm IV PUSH .FOR FS < 60 - SS PRN Reason: FS < 60 Gabapentin (Neurontin Cap(*)) 100 mg PO BEDTIME YIMI Loperamide HCl (Imodium Cap*) 2 mg PO .SEE DIRECTIONS PRN Reason: DIARRHEA Metoprolol Tartrate (Lopressor Tab*) 50 mg PO Q12HR YIMI Omeprazole (Prilosec Cap*) 20 mg PO DAILY@0600 YIMI Ondansetron HCl (Zofran Inj*) 4 mg IV Q6H PRN Reason: NAUSEA Simethicone (Mylicon*) 80 mg PO Q6H PRN Reason: DISCOMFORT Sodium Bicarbonate (Sodium Bicarbonate (Antacid)*) 1,300 mg PO AC@0600,1130, 1630 YIMI Zinc Oxide (Zinc Oxide 40% (Topical)*) 1 applic TOPICAL TID YIMI Vital Signs 03/04/17 08:19 Temperature 99.3 F Pulse Rate 70 Respiratory 13 Rate Blood Pressure 127/34 (mmHg) O2 Sat by Pulse 95 Oximetry Oxygen Devices in Use Now: None Appearance: NAD, laying in bed Eyes: PERRLA Respiratory: Symmetrical Chest Expansion and Respiratory Effort, Clear to Auscultation, - - Upper airway wheezing noted Cardiovascular: NL Sounds; No Murmurs; No JVD, RRR Abdominal: NL Sounds; No Tenderness; No Distention Extremities: - - Trace to 1+ bilateral LE edema Neurological: - - Lethargic, when awake oriented to Lines/Tubes/Other Access: Clean, Dry and Intact Peripheral IV - site benign Nutrition: Taking PO's - minimal PO Result Diagrams: 03/03/17 06:48 03/03/17 06:48 Additional Lab and Data: Microbiology and Other Data: Microbiology 02/15/17 18:30 Nasal Screen MRSA (PCR)(MARNIE) - Final Nasal Mrsa Negative Assess/Plan/Problems-Billing Assessment: Ms. Jean is a 71 yo F admitted with acute on chronic renal failure, h/o diarrhea for several weeks, chronic leg edema on diuretic at home. - Patient Problems (1) Abdominal mass, left lower quadrant Code(s): R19.04 - LEFT LOWER QUADRANT ABDOMINAL SWELLING, MASS AND LUMP SNOMED Code(s): 683307261 Comment: - Appreciate Dr. Grigsby's consult. CA125 antigen elevated. - s/p CT guided bx on 02/11/17, path prelim report conclusive of mailgnancy. CT from [place] in 11/09 shows abd fat stranding, but no masses rosaline visualized. - Had a conference call with daughter Mirna, pt's and Dr. Grigsby on . Family was informed that the malignancy is not fully identified yet. Additional path stains still have not identified the malignancy and further testing pending and will be avaliable next week. - If the malignancy is not easily treatable, pt may not be a candidate for chemo and then hospice will be offered. - Palliative Care consult, appreciate input. - 03/02/[address] Grigsby, her prognosis is < 1 month and she is not felt to be a candidate for chemo. - Comfort care (2) Lower GI bleeding Code(s): K92.2 - GASTROINTESTINAL HEMORRHAGE, UNSPECIFIED SNOMED Code(s): 57803028 Comment: - HH stable. - Resolved, suspect hemorrhoidal. - Dr. Green consulted-no further w/up recommended. Pt has h/o epigastric pain with extensive GI w/up at [facility], showing H. Pylori neg gastritis. - ICE GUARD INSPECTOR consult appreciated. Suspect bleeding is rectal, not vaginal. Possibly due to hemorrhoids that were noted during c-scope at [place] - CT abd pelvis showed LLQ mass at 7 cm and possible omental caking. - Continue Carafate. (3) CKD (chronic kidney disease) Code(s): N18.9 - CHRONIC KIDNEY DISEASE, UNSPECIFIED SNOMED Code(s): 018577541 Comment: - Now with acute on chronic - Baseline creatinine 1.3-1.6. Still >5, now >6. - Had been on Kayexalate for hyperkalemia. - D/w Dr. Archer, rate of creatinine increase has slowed down, but pt developed metabolic acidosis that needed to be corrected with Na bicarb PO and IV gtt that was started on 02/26/17. Discontinue IV gtt 03/01/17 - Echo shows EF 60%, mod , mod pulm HTN - Possible ATN due to prerenal state. FeNa 0.1. - Poor urine output - Continue GOOD bandages to LE's. (4) Atrial flutter Code(s): I48.92 - UNSPECIFIED ATRIAL FLUTTER SNOMED Code(s): 0585716 Comment: - Pt has h/o Mobitz tupe 2 s/p pacer in past - Heart rate irregular rhythm by auscultation - Anticoagulation held due to bleeding - Continue metoprolol (5) Diabetes Code(s): E11.9 - TYPE 2 DIABETES MELLITUS WITHOUT COMPLICATIONS SNOMED Code(s) : 53955513 Comment: - Off all hypoglycemics. - Will stop FS (6) Chronic diarrhea Code(s): K52.9 - NONINFECTIVE GASTROENTERITIS AND COLITIS, UNSPECIFIED SNOMED Code(s): 272006613 Comment: - Pt reports her normal is 2-3 BM per day. - Fecal lactoferrin neg and stool cx neg. It is possible that pt has neuroendocrine malignancy causing secretory diarrhea - VRE reported in stool-not pathologic in stool - Continue Imodium (7) Difficulty walking Code(s): R26.2 - DIFFICULTY IN WALKING, NOT ELSEWHERE CLASSIFIED SNOMED Code(s ): 856428895 Comment: - Continue PT if she goes to [facility] (8) Morbid obesity Code(s): E66.01 - MORBID (SEVERE) OBESITY DUE TO EXCESS CALORIES SNOMED Code(s ): 486369090 Comment: - BMI 47.1. (9) UTI due to extended-spectrum beta lactamase (ESBL) producing Escherichia coli Code(s): N39.0 - URINARY TRACT INFECTION, SITE NOT SPECIFIED; A49.8 - OTHER BACTERIAL INFECTIONS OF UNSPECIFIED SITE; Z16.12 - EXTENDED SPECTRUM BETA LACTAMASE (ESBL) RESISTANCE SNOMED Code(s): 642229086 Comment: - ID recommended to complete 5 day course, last dose given on 02/24/17 (10) Normocytic anemia Code(s): D64.9 - ANEMIA, UNSPECIFIED SNOMED Code(s): 924511934 Comment: - Suspect due to CKD (11) DVT prophylaxis Code(s): MSH8780 - SNOMED Code(s): 311999892 Comment: - Stopped, Pt now comfort care (12) Full code status Status and Disposition: Inpatient. Discharge to [facility] vs Hospice when bed is available.
[2017-03-04] MEDS ORDERED: LORazepam TAB(*) 0.5 MG PO PRN (14:26)
[2017-03-04] MEDS: Atorvastatin* 10 MG TAB PO SCH (17:27)
[2017-03-04] MEDS: Gabapentin CAP(*) 100 MG PO SCH (21:24)
[2017-03-05] MEDS: Sodium Bicarbonate (ANTACID)* 650 MG TAB PO SCH ×2 (07:10→10:48)
[2017-03-05] MEDS: Omeprazole CAP* 20 MG PO SCH (07:10)
[2017-03-05] MEDS: Metoprolol Tartrate TAB* 50 mg PO SCH (08:03)
[2017-03-05] MEDS: Zinc Oxide 40% (TOPICAL)* TUBE TOPICAL SCH (08:04)
--- NOTE | 2017-03-05 08:53 | PN ---
Subjective Date of Service: 03/05/17 Interval History: Patient seen and examined at bedside. Pt continues to be lethargic. Denies fever , chills, shortness of breath, chest discomfort, N/V/D. Family History: Unchanged from Admission Social History: Unchanged from Admission Past Medical History: Unchanged from Admission Objective Active Medications: Acetaminophen (Tylenol Tab*) 650 mg PO Q4H PRN Reason: PAIN/INFLAMMATION Atorvastatin Calcium (Lipitor*) 10 mg PO QPM YIMI Benzonatate (Tessalon Cap*) 200 mg PO TID PRN Reason: COUGH Dextrose (D50w Syringe 50 Ml*) 12.5 gm IV PUSH .FOR FS < 60 - SS PRN Reason: FS < 60 Gabapentin (Neurontin Cap(*)) 100 mg PO BEDTIME YIMI Loperamide HCl (Imodium Cap*) 2 mg PO .SEE DIRECTIONS PRN Reason: DIARRHEA Lorazepam (Ativan Tab(*)) 0.5 mg PO Q8H PRN Reason: ANXIETY Metoprolol Tartrate (Lopressor Tab*) 50 mg PO Q12HR YIMI Omeprazole (Prilosec Cap*) 20 mg PO DAILY@0600 YIMI Ondansetron HCl (Zofran Inj*) 4 mg IV Q6H PRN Reason: NAUSEA Simethicone (Mylicon*) 80 mg PO Q6H PRN Reason: DISCOMFORT Sodium Bicarbonate (Sodium Bicarbonate (Antacid)*) 1,300 mg PO AC@0600,1130, 1630 YIMI Zinc Oxide (Zinc Oxide 40% (Topical)*) 1 applic TOPICAL TID [facility] Vital Signs 03/05/17 03/05/17 03/05/17 00:36 00:38 02:38 Pulse Rate 75 Respiratory 26 26 18 Rate Blood Pressure 119/40 (mmHg) O2 Sat by Pulse 94 Oximetry Oxygen Devices in Use Now: None Appearance: NAD, laying in bed Respiratory: Symmetrical Chest Expansion and Respiratory Effort, Clear to Auscultation Cardiovascular: NL Sounds; No Murmurs; No JVD, RRR Abdominal: NL Sounds; No Tenderness; No Distention Extremities: - - trace to 1+ bilateral LE edema Skin: No Rash or Ulcers Neurological: - - Lethargic, Oriented to Person and Place Lines/Tubes/Other Access: Clean, Dry and Intact Peripheral IV - site benign Nutrition: Taking PO's Result Diagrams: 03/03/17 06:48 07/09/17 06:48 Additional Lab and Data: Microbiology and Other Data: Microbiology 02/15/17 18:30 Nasal Screen MRSA (PCR)(MARNIE) - Final Nasal Mrsa Negative Assess/Plan/Problems-Billing Assessment: Ms. Jean is a 71 yo F admitted with acute on chronic renal failure, h/o diarrhea for several weeks, chronic leg edema on diuretic at home. - Patient Problems (1) Abdominal mass, left lower quadrant Code(s): R19.04 - LEFT LOWER QUADRANT ABDOMINAL SWELLING, MASS AND LUMP SNOMED Code(s): 933412603 Comment: - Appreciate Dr. Grigsby's consult. CA125 antigen elevated. - s/p CT guided bx on 02/11/17, path prelim report conclusive of mailgnancy. CT from [place] in 11/09 shows abd fat stranding, but no masses rosaline visualized. - Had a conference call with daughter Mirna, pt's and Dr. Grigsby on . Family was informed that the malignancy is not fully identified yet. Additional path stains still have not identified the malignancy and further testing pending and will be avaliable next week. - If the malignancy is not easily treatable, pt may not be a candidate for chemo and then hospice will be offered. - Palliative Care consult, appreciate input. - 03/02/[address] Grigsby, her prognosis is < 1 month and she is not felt to be a candidate for chemo. - Comfort care (2) Lower GI bleeding Code(s): K92.2 - GASTROINTESTINAL HEMORRHAGE, UNSPECIFIED SNOMED Code(s): 89607348 Comment: - HH stable. - Resolved, suspect hemorrhoidal. - Dr. Green consulted-no further w/up recommended. Pt has h/o epigastric pain with extensive GI w/up at [facility], showing H. Pylori neg gastritis. - MAGAZINE JOURNALIST consult appreciated. Suspect bleeding is rectal, not vaginal. Possibly due to hemorrhoids that were noted during c-scope at [place] - CT abd pelvis showed LLQ mass at 7 cm and possible omental caking. - Continue Carafate. (3) CKD (chronic kidney disease) Code(s): N18.9 - CHRONIC KIDNEY DISEASE, UNSPECIFIED SNOMED Code(s): 938375944 Comment: - Now with acute on chronic - Baseline creatinine 1.3-1.6. Still >5, now >6. - Had been on Kayexalate for hyperkalemia. - D/w Dr. Archer, rate of creatinine increase has slowed down, but pt developed metabolic acidosis that needed to be corrected with Na bicarb PO and IV gtt that was started on 02/26/17. Discontinue IV gtt 03/01/17 - Echo shows EF 60%, mod , mod pulm HTN - Possible ATN due to prerenal state. FeNa 0.1. - Poor urine output - Continue GOOD bandages to LE's. (4) Atrial flutter Code(s): I48.92 - UNSPECIFIED ATRIAL FLUTTER SNOMED Code(s): 6371516 Comment: - Pt has h/o Mobitz tupe 2 s/p pacer in past - Heart rate irregular rhythm by auscultation - Anticoagulation held due to bleeding - Continue metoprolol (5) Diabetes Code(s): E11.9 - TYPE 2 DIABETES MELLITUS WITHOUT COMPLICATIONS SNOMED Code(s) : 57115255 Comment: - Off all hypoglycemics. - Will stop FS (6) Chronic diarrhea Code(s): K52.9 - NONINFECTIVE GASTROENTERITIS AND COLITIS, UNSPECIFIED SNOMED Code(s): 374394654 Comment: - Pt reports her normal is 2-3 BM per day. - Fecal lactoferrin neg and stool cx neg. It is possible that pt has neuroendocrine malignancy causing secretory diarrhea - VRE reported in stool-not pathologic in stool - Continue Imodium (7) Difficulty walking Code(s): R26.2 - DIFFICULTY IN WALKING, NOT ELSEWHERE CLASSIFIED SNOMED Code(s ): 980208546 Comment: - Continue PT if she goes to [facility] (8) Morbid obesity Code(s): E66.01 - MORBID (SEVERE) OBESITY DUE TO EXCESS CALORIES SNOMED Code(s ): 943005398 Comment: - BMI 47.1. (9) UTI due to extended-spectrum beta lactamase (ESBL) producing Escherichia coli Code(s): N39.0 - URINARY TRACT INFECTION, SITE NOT SPECIFIED; A49.8 - OTHER BACTERIAL INFECTIONS OF UNSPECIFIED SITE; Z16.12 - EXTENDED SPECTRUM BETA LACTAMASE (ESBL) RESISTANCE SNOMED Code(s): 522797765 Comment: - ID recommended to complete 5 day course, last dose given on 02/24/17 (10) Normocytic anemia Code(s): D64.9 - ANEMIA, UNSPECIFIED SNOMED Code(s): 388057289 Comment: - Suspect due to CKD (11) DVT prophylaxis Code(s): SIB2833 - SNOMED Code(s): 326208365 Comment: - Stopped, Pt now comfort care (12) Full code status Status and Disposition: Inpatient. Stable for discharge to [facility] today.
--- NOTE | 2017-03-05 11:15 | DS ---
CC: Dr. Joss Salgado; [facility] * DISCHARGE SUMMARY: DATE OF ADMISSION: 02/15/17 DATE OF DISCHARGE: 03/05/17 ATTENDING PHYSICIAN: Dr. Linda Hart *(dictated by Adela Frazier NP) PRIMARY CARE PROVIDER: Dr. Joss Salgado. CONSULTATIONS WHILE IN THE HOSPITAL: 1. Dr. Wally Green with Gastroenterology. 2. Dr. Angel Fontanez with Gynecology. 3. Dr. Curtis Grigsby with Oncology. 4. Dr. Joss Archer with Nephrology. 5. Dr. Frank Pederson with Infectious Disease. 6. Dr. Lali Salas with Palliative Care. PROCEDURE WHILE IN THE HOSPITAL: Status post fine needle aspiration of an abdominal mass by Dr. Ace Downs on 02/21/17. STUDIES WHILE IN THE HOSPITAL: 1. Pelvis x-ray on 10/20/16. 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 2. Abdominal x-ray on 02/19/17. Radiologist's impression: No evidence for obstruction. Predominant vascular calcification and probable small bilateral renal calculi. 3. Pelvic ultrasound on 02/19/17. Limited exam without visualization of uterus or definitive visualization of the ovaries without history of previous hysterectomy or ovary resection. Suggestion of moderate free fluid in the dependent pelvis. 4. Abdominal pelvis CT on 02/19/17. 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 Left adrenal mass likely metastatic. Multiple porcelain gallbladder. Ventral wall hernia. 5. Abdominal ultrasound on 02/20/17. Radiologist's impression: Left of midline peritoneal mass as described above with sonographic appearance indicating compatibility with percutaneous biopsy. 6. Transthoracic echocardiogram on 02/22/17. School Psychology Professor's conclusion: He said it is technically difficult. Mild concentric left ventricular hypertrophy is observed. Global left ventricular wall motion and contractility are within normal limits. There is normal left ventricular systolic function. The estimated ejection fraction is 60% to 65%. The left atrium is moderately dilated. The right ventricle is slightly dilated. The right ventricle global systolic function is normal. The right atrium is moderately dilated. There is mild aortic stenosis by continuity. The degree of may be underestimated due to the Doppler angle. The seems to be more moderate by 2D. The aortic valve structure is not well visualized. There is mild mitral regurgitation, moderate tricuspid regurgitation. The right ventricular systolic pressure is estimated at 56 mmHg. There is evidence of moderate pulmonary hypertension. There is artifact of right ventricle suggestive of a pacemaker wire. 7. Abdomen and bladder ultrasound on 02/25/17. Radiologist's impression: Fullness of the right renal collecting system. Left kidney is not visualized. 8. CT of the chest on 02/27/17. Radiologist's impression: No evidence of a lung mass or definitive adenopathy on the chest. DISCHARGE MEDICATIONS: New home medications: 1. Zinc oxide apply topical to perineal area 3 times daily. 2. Omeprazole 20 mg oral daily. 3. Lorazepam 0.5 mg oral every 6 hours as needed for anxiety. 4. Morphine oral concentrate 5 mg oral every 4 hours as needed for dyspnea or pain. 5. Carafate 1 g oral 4 times daily. Continued home medications: 1. Imodium 2 mg after each loose stool, maximum of 8 mg daily. 2. Acetaminophen 650 mg oral every 4 hours as needed for pain. Changed home medications: 1. MiraLAX 17 g oral daily. 2. Metoprolol 50 mg oral daily. Discontinued home medications: 1. Simvastatin. 2. Ferrous sulfate. 3. Ibuprofen. 4. Gabapentin. 5. Protonix. 6. Xarelto. 7. Hydrochlorothiazide. HISTORY OF PRESENT ILLNESS/HOSPITAL COURSE: Ms. Jean is a 71-year-old female with past medical history significant for atrial flutter, diabetes mellitus, hypertension and chronic diarrhea who had fallen back on 02/04/17 and was hospitalized at [facility] for community-acquired pneumonia and acute on chronic kidney injury in addition to a knee effusion. The patient was hospitalized until 02/08/17 at which time she was discharged to short-term rehab. During the patient's rehab stay on 02/06/17, her creatinine was 1.6 and her BUN was 35. The patient had repeat labs during her stay showing progression of her kidney injury. The patient also had a negative C. diff testing. She continued to have diarrhea. The patient was treated for toxic metabolic encephalopathy. The patient had repeat labs showing a creatinine of 2.4 and a BUN of 52 on 01/25/17. The patient received a liter of saline as she was felt to be dehydrated. The patient was then felt to be ready to be discharged on 02/15/17 and was discharged from [place] to home with her . The patient's was unable to get her out of the vehicle when they got home, so he brought her to [facility] for further evaluation. From the emergency room, the patient had labs that were significant for a sodium of 131, potassium 5.9, BUN 53, and creatinine of 2.6. It is also to note that the patient had been taken off of her antidiabetic medications at the rehab facility if she has been running hypoglycemic. The hospitalists were asked to evaluate the patient for admission. While in the hospital, the patient was treated with IV fluids for her acute renal failure. She was seen by Physical Therapy and Occupational Therapy for her weakness. During her stay, she had a pelvis x-ray showing no acute findings. For her complaints of back pain, she was given scheduled Tylenol. She was felt to need subacute rehab. The patient was felt to be stable for discharge to rehab. She developed some bleeding. At first, this was felt to be vaginal bleeding. She was seen in consultation by Dr. Fontanez with [facility] who felt that the patient's bleeding was possibly rectal. The patient was seen in consultation by Dr. Green with Gastroenterology who felt that there was no evidence of a chronic GI bleed and that there was no acute source for the GI bleed and he felt that the bleeding was possibly gynecological in origin. The patient then had an ultrasound and an abdomen and pelvis CT, which found a peritoneal mass. The patient underwent an ultrasound-guided biopsy of this mass on 02/21/17. She was seen in consultation by Dr. Curtis Grigsby, who felt that the patient had an abdominal or pelvis malignancy, potentially primary ovarian or peritoneal carcinoma. The patient's biopsy showed high-grade, undifferentiated, malignant neoplasm with staining that did not help determine the exact origin of her malignancy. During her stay, the patient's renal failure worsened. She was seen in consultation by Dr. Archer who felt that she possibly had ATN. The patient's renal function had been stable with a creatinine above 5 from 02/25/17 to 03/01/17 and then on 03/03/17 her renal function increased to 6.02. The patient 's urine output decreased. She was making minimal amounts of urine. The patient was seen in consultation by Palliative Care, who recommended the patient consider comfort care and palliative services. The patient's daughter arrived from out of town and the decision was made to send the patient to a facility with hospice services. Ms. Jean is stable for discharge to [facility] today. Vital signs are as follows; temperature 99.3, heart rate 75, respiratory rate 26, O2 sat 94% on room air, blood pressure 119/40. DISCHARGE PLAN: Ms. Jean will be discharged to [facility] today. ACTIVITY: As tolerated. DIET: She should be on a low lactose diet. The patient will be signed on to hospice services. She should be continued on morphine oral concentrate 5 mg oral every fours hours as needed for pain or dyspnea in addition to lorazepam 0.5 mg every 6 hours as needed for anxiety. For now, the patient's family would like her continued on her other home medications, although I have recommended to stop taking some of her nonessential medications such as her iron, simvastatin, gabapentin, hydrochlorothiazide. Due to concern of bleeding, the patient's Xarelto has been stopped. We also recommend stopping her Motrin. The patient is now taking in minimal fluids. She should be signed on and seen by hospice upon arrival to [facility]. This is a summarized report of a complex medical history and hospital stay. For further details, please see the entire medical record. TIME SPENT: Time for this discharge was 60 minutes; greater than half of that was spent with the patient and family discussing discharge plans and instructions. CONDITION ON DISCHARGE: Stable. Reviewed by JALEN HURD 03/05/17 1844 [id number]/[facility] #: [id number] FREYA
[2017-03-05 11:50] VITALS: BP 119/41
== END 2017-03-05 12:45 | DRG 374 ==
LOC: ED 12:51 → MED 14:59 → OBSVTOIN 02-16 09:00
PROVIDERS: ADMIT Internal Medicine; ATTEND Internal Medicine
PROC: 0T9B70Z Drainage of Bladder with Drainage Device, Via Natural or Artificial Opening (ICD-10-PCS; principal; 2017-02-21)
PROC: 0DBW3ZX Excision of Peritoneum, Percutaneous Approach, Diagnostic (ICD-10-PCS; 2017-02-22)
DX: C48.2 Malignant neoplasm of peritoneum, unspecified (principal); N17.0 Acute kidney failure with tubular necrosis; E11.22 Type 2 diabetes mellitus with diabetic chronic kidney disease; I27.2 Other secondary pulmonary hypertension; I48.92 Unspecified atrial flutter; C79.9 Secondary malignant neoplasm of unspecified site; Z68.42 Body mass index [BMI] 45.0-49.9, adult; N17.9 Acute kidney failure, unspecified; N39.0 Urinary tract infection, site not specified; K92.2 Gastrointestinal hemorrhage, unspecified; D63.1 Anemia in chronic kidney disease; K52.9 Noninfective gastroenteritis and colitis, unspecified; Z96.651 Presence of right artificial knee joint; R53.1 Weakness; E66.01 Morbid (severe) obesity due to excess calories; M54.9 Dorsalgia, unspecified; R26.2 Difficulty in walking, not elsewhere classified; F03.90 Unspecified dementia, unspecified severity, without behavioral disturbance, psychotic disturbance, mood disturbance, and anxiety; N18.9 Chronic kidney disease, unspecified; I12.9 Hypertensive chronic kidney disease with stage 1 through stage 4 chronic kidney disease, or unspecified chronic kidney disease; R26.9 Unspecified abnormalities of gait and mobility; R60.0 Localized edema; E87.5 Hyperkalemia; B96.29 Other Escherichia coli [E. coli] as the cause of diseases classified elsewhere; R33.9 Retention of urine, unspecified; Z16.12 Extended spectrum beta lactamase (ESBL) resistance; Z51.5 Encounter for palliative care; Z66 Do not resuscitate; M16.0 Bilateral primary osteoarthritis of hip; K43.9 Ventral hernia without obstruction or gangrene; I08.3 Combined rheumatic disorders of mitral, aortic and tricuspid valves; Z87.01 Personal history of pneumonia (recurrent); Z87.440 Personal history of urinary (tract) infections; Z95.0 Presence of cardiac pacemaker; Z88.5 Allergy status to narcotic agent; Z83.3 Family history of diabetes mellitus; Z87.891 Personal history of nicotine dependence; Z82.3 Family history of stroke
CPT/HCPCS: 36415; 36600; 49180; 71250; 72170; 74000; 74176; 76705; 76770; 76856; 76942; 80048; 80053; 81003; 81015; 82272; 82378; 82565; 82570; 82803; 83605; 83630; 83735; 84300; 84443; 84484; 84520; 84550; 85025; 85027; 85610; 85730; 86140; 86304; 87045; 87046; 87077; 87086; 87106; 87186; 87641; 87899; 88172; 88173; 88305; 88341; 88342; 93005; 93306; 94660; 94760; 99217; 99223; 99231; 99232; 99284; A9270-GY; C8929; G0378; J1644; J1650; J2405; J2543; J7060